=== PATIENT | female | born 1945 ===

== ENCOUNTER 2017-03-17 19:24 | Inpatient (IN) | payer MEDICAID, MEDICARE ==
[2017-03-17 19:24] VITALS: BMI 38.5
--- NOTE | 2017-03-17 20:10 | C.PDOC ---
History Of Present Illness A 72 y/o female presents to the ER c/o headache that began this morning that is still going throughout the day. Pt notes she surgery done on the right shoulder two weeks ago and is wearing a pain pad but does not relieve headache. Pt is unaware of fever and denies photophobia, vision changes, cough, vomiting, diarrhea, dizziness, or any other complaints. Time Seen by Provider: 03/17/17 19:56 Chief Complaint (Nursing): Headache History Per: Patient History/Exam Limitations: no limitations Onset/Duration Of Symptoms: Hrs Current Symptoms Are (Timing): Still Present Severity: Mild Associated Symptoms: denies: Photophobia, Nausea, Vomiting Recent travel outside of the [place]: No Additional History Per: Patient Past Medical History Reviewed: Historical Data, Nursing Documentation, Vital Signs Vital Signs: Last Vital Signs Temp 98.4 F 03/18/17 07:28 Pulse 84 03/18/17 07:28 Resp 20 03/18/17 07:28 BP 128/79 03/18/17 11:29 Pulse Ox 96 03/18/17 07:28 - Medical History PMH: Asthma, Bronchitis, COPD, Dementia, Diabetes, Gastritis, Gall Bladder Disease, HTN, Hypercholesterolemia, Hyperlipidemia, Hypothyroidism, Pneumonia, Seizures Denies: Depression, Chronic Kidney Disease Surgical History: Cholecystectomy - [facility] Procedures CENTRAL VENOUS CATHETER PLACEMENT WITH GUIDANCE (06/17/13) DECORTICATION OF LUNG (06/17/13) DX ULTRASOUND-HEART (06/17/13) DX ULTRASOUND-THORAX NEC (04/25/12) ENDOSCOPIC BRONCHIAL BX (06/17/13) INSERT INTERCOSTAL CATH (06/17/13) NON-INVASIVE MECHANICAL VENTILATION (06/17/13) OTHER PLEURAL INCISION (06/17/13) THORACENTESIS (04/25/12) Family History: States: Unknown Family Hx - Social History Hx Tobacco Use: No Hx Alcohol Use: No Hx Substance Use: No - Immunization History Hx Tetanus Toxoid Vaccination: Yes Hx Influenza Vaccination: Yes Hx Pneumococcal Vaccination: Yes Review Of Systems Except As Marked, All Systems Reviewed And Found Negative. Constitutional: Positive for: Fever. Negative for: Chills Eyes: Negative for: Vision Change Cardiovascular: Negative for: Chest Pain Respiratory: Negative for: Cough Gastrointestinal: Negative for: Vomiting, Diarrhea Musculoskeletal: Positive for: Neck Pain Neurological: Positive for: Headache. Negative for: Dizziness Physical Exam - Physical Exam Appears: Non-toxic, No Acute Distress Skin: Warm, Dry Head: Atraumatic, Normacephalic Eye(s): bilateral: Normal Inspection, PERRL, EOMI Oral Mucosa: Moist Throat: Exudate Neck: Supple, Other (Tenderness to the back of the neck and scalp. no meningismus) Cardiovascular: Rhythm Regular, No Murmur Respiratory: No Decreased Breath Sounds, No Accessory Muscle Use, No Rales, No Rhonchi, No Wheezing Gastrointestinal/Abdominal: Soft, No Tenderness Neurological/Psych: Oriented x3, Normal Cognition, Normal Cranial Nerves, No Cerebellar Signs, Normal Motor, Normal Sensation, Other (No focal deficit) ED Course And Treatment - Laboratory Results Result Diagrams: 03/17/17 20:18 03/17/17 20:18 O2 Sat by Pulse Oximetry: 94 (RA) Pulse Ox Interpretation: Normal Medical Decision Making Medical Decision Making: martha Salazar who will admit Disposition - Disposition Disposition: HOSPITALIZED Disposition Time: 21:34 Condition: STABLE - Clinical Impression Clinical Impression: Headache, Fever - Scribe Statement The provider has reviewed the documentation as recorded by the Scribe Fran marquez All medical record entries made by the Scribe were at my direction and personally dictated by me. I have reviewed the chart and agree that the record accurately reflects my personal performance of the history, physical exam, medical decision making, and the department course for this patient. I have also personally directed, reviewed, and agree with the discharge instructions and disposition.
[2017-03-17 20:22] LABS: BASO # 0.1 K/uL (0.0-0.2); BASO % 0.6 % (0.0-2.0); EOS # 0.4 K/uL (0.0-0.7); EOS % 3.4 % (0.0-4.0); HEMATOCRIT 37.9 % (34.0-47.0); LYMPH # 1.9 K/uL (1.0-4.3); LYMPH % 15.8 % (20.0-40.0); MEAN CELL VOLUME 94.3 fL (81.0-99.0); MEAN CORPUSCULAR HEMOGLOBIN 30.7 pg (27.0-31.0); MEAN CORPUSCULAR HGB CONC 32.6 g/dL (33.0-37.0); MEAN PLATELET VOLUME 9.1 fL (7.2-11.7); MONO # 0.9 K/uL (0.0-0.8); MONO % 7.7 % (0.0-10.0); NRBC % 0.1 % (0.0-2.0); RED CELL DISTRIBUTION WIDTH 13.9 % (11.5-14.5)
[2017-03-17 20:23] LABS: WHITE BLOOD COUNT 11.7 K/uL (4.8-10.8)
[2017-03-17 20:26] LABS: VENOUS BLOOD GAS PCO2 40 mmHg (40-60); VENOUS BLOOD PH 7.37 (7.32-7.43)
[2017-03-17 20:34] LABS: CHLORIDE 106 mmol/L (98-107); SODIUM 137 mmol/L (132-148)
[2017-03-17 20:35] LABS: POTASSIUM 3.9 mmol/L (3.6-5.2)
[2017-03-17 20:37] LABS: ALKALINE PHOSPHATASE 80 U/L (38-126); AST/SGOT 26 U/L (14-36); CARBON DIOXIDE 22 mmol/L (22-30); GFR AFRICAN-AMERICAN > 60; TOTAL PROTEIN 7.3 g/dL (6.3-8.3)
[2017-03-17 20:38] LABS: ALT/SGPT 20 U/L (9-52); BLOOD UREA NITROGEN 8 mg/dL (7-17); CALCIUM 8.7 mg/dl (8.6-10.4); GLUCOSE,RANDOM 132 mg/dL (65-105)
[2017-03-17] MEDS ORDERED: cefTRIAXone 2 GM in Sodium Chloride 0.9% 100 ML IVPB STA (21:27)
[2017-03-17] MEDS ORDERED: cefTRIAXone IV 1 gm in Dextros 0 ML IVPB ONE (21:43)
[2017-03-17 22:06] LABS: RBC URINE 2 /hpf (0-3); TRANSITIONAL EPITHIAL 1 /hpf (0-3); URINE BACTERIA RARE (<OCC); URINE BILIRUBIN NEGATIVE (NEGATIVE); URINE BLOOD NEGATIVE (NEGATIVE); URINE COLOR Yellow (YELLOW); URINE GLUCOSE (UA) NORMAL (Normal); URINE KETONE NEGATIVE (NEGATIVE); URINE PROTEIN NEGATIVE (NEGATIVE); URINE UROBILINOGEN NORMAL mg/dL (0.2-1.0); WBC URINE 7 /hpf (0-5)
[2017-03-17 22:07] LABS: URINE LEUKOCYTE ESTERASE 1+ Leu/uL (Negative)
--- NOTE | 2017-03-17 22:27 | CT ---
EXAM: CT Head Without Intravenous Contrast CLINICAL HISTORY: 72 years old, female; Condition or disease; Headache TECHNIQUE: Axial computed tomography images of the head/brain without intravenous contrast. This CT exam was performed using one or more of the following dose reduction techniques: automated exposure control, adjustment of the mA and/or kV according to patient size, and/or use of iterative reconstruction technique. EXAM DATE/TIME: 03/17/2017 8:10 PM COMPARISON: Prior images are not available for review. Correlation is made with report dated 08/07/11 FINDINGS: Brain: Overall ventricular size is normal. There is no midline shift. A ventricular catheter is in place entering from a right posterior parietal approach. Catheter extends inferiorly anteriorly and medially across the midline. Tip is in the frontal horn of the left lateral ventricle. There is left frontotemporoparietal encephalomalacia. There is encephalomalacia in the left basal ganglia. There is right frontal encephalomalacia. There are no intra-axial or extra-axial mass lesions or hemorrhage. There are basal ganglia calcifications. There are multiple surgical clips adjacent to the left cavernous sinus. There is a clip in the expected location of the left anterior communicating artery. Ventricles: See above Bones/joints: There are postsurgical changes of remote right frontotemporal craniotomy. Soft tissues: unremarkable Sinuses: There is sphenoid sinusitis. Ears and mastoids: Middle ears are unremarkable. Mastoids are sclerotic and poorly aerated. Orbits: Orbital contents are unremarkable. 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
[2017-03-18] MEDS: Albuterol-Ipratrop 3 mg / 0.5 (3 ml) UD INH SCH ×4 (08:10→19:22)
[2017-03-18] MEDS: Levothyroxine 100 MCG TAB PO SCH (08:23)
--- NOTE | 2017-03-18 08:32 | RAD ---
HISTORY: fever COMPARISON: 01/20/2017 FINDINGS: LUNGS: Looped catheter projecting over the right paola thorax. Moderate venous congestion. Small right pleural effusion. Bibasilar airspace opacities. PLEURA: As above. CARDIOVASCULAR: Cardiomegaly. Enlarged ectatic aorta. Calcification at the aortic knob. OSSEOUS STRUCTURES: Degenerative changes in the spine and shoulders. VISUALIZED UPPER ABDOMEN: Normal. OTHER FINDINGS: None. IMPRESSION: Looped catheter projecting over the right paola thorax. Moderate venous congestion. Small right pleural effusion. Bibasilar airspace opacities.
[2017-03-18] MEDS ORDERED: cefTRIAXone IV 1 gm in Dextros 50 ML IVPB SCH (10:00)
[2017-03-18] MEDS: Tiotropium 18 mcg Cap For Inhalation INH SCH (11:10)
[2017-03-18] MEDS: Enoxaparin 40 mg Syringe SC SCH (11:29)
[2017-03-18] MEDS: Omega-3-Acid Ethyl Esters 1 GM Cap PO SCH ×2 (11:29→17:44)
--- NOTE | 2017-03-18 11:55 | CP.PCM.HP ---
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 Patient presents to the Hospital complaining of headache and fever. Initial evaluation showed Leukocytosis. Patient denies nausea, vomiting, chest pain, cough, shortness of breath, abdominal pain or diarrhea. Present on Admission - Present on Admission Any Indicators Present on Admission: No Review of Systems - Constitutional Constitutional: Headache - EENT Eyes: As Per HPI Ears: As Per HPI Nose/Mouth/Throat: As Per HPI - Cardiovascular Cardiovascular: As Per HPI - Respiratory Respiratory: As Per HPI - Gastrointestinal Gastrointestinal: As Per HPI - Genitourinary Genitourinary: As Per HPI - Musculoskeletal Musculoskeletal: As Per HPI - Integumentary Integumentary: As Per HPI - Neurological Neurological: Headaches - Psychiatric Psychiatric: As Per HPI - Endocrine Endocrine: As Per HPI - Hematologic/Lymphatic Hematologic: As Per HPI Past Patient History - Infectious Disease Hx of Infectious Diseases: None - Past Medical History & Family History Past Medical History?: Yes - Past Social History Smoking Status: Former Smoker - CARDIAC Hx Cardiac Disorders: Yes Hx Hypercholesterolemia: Yes Hx Hypertension: Yes - PULMONARY Hx Respiratory Disorders: Yes Hx Asthma: Yes Hx Bronchitis: Yes Hx Chronic Obstructive Pulmonary Disease (COPD): Yes Hx Pneumonia: Yes - NEUROLOGICAL Hx Neurological Disorder: Yes Hx Dementia: Yes Hx Seizures: Yes - HEENT Hx HEENT Problems: Yes 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) - RENAL Hx Chronic Kidney Disease: No - ENDOCRINE/METABOLIC Hx Endocrine Disorders: Yes Hx Hypothyroidism: Yes - HEMATOLOGICAL/ONCOLOGICAL Hx Blood Disorders: No - INTEGUMENTARY Hx Dermatological Problems: No - MUSCULOSKELETAL/RHEUMATOLOGICAL Hx Musculoskeletal Disorders: No Hx Falls: No - GASTROINTESTINAL Hx Gastrointestinal Disorders: Yes Hx Gall Bladder Disease: Yes Hx Gastritis: Yes - GENITOURINARY/GYNECOLOGICAL Hx Genitourinary Disorders: No - PSYCHIATRIC Hx Psychophysiologic Disorder: No Hx Depression: No Hx Substance Use: No - SURGICAL HISTORY Hx Surgeries: Yes Hx Cholecystectomy: Yes - ANESTHESIA Hx Anesthesia: Yes Hx Anesthesia Reactions: No Hx Malignant Hyperthermia: No Meds Allergies/Adverse Reactions: Allergies Allergy/AdvReac Type Severity Reaction Status Date / Time moxifloxacin HCl Allergy RASH Verified 03/17/17 19:28 [From Avelox] Physical Exam - Constitutional Appears: Well - Head Exam Head Exam: ATRAUMATIC, NORMAL INSPECTION, NORMOCEPHALIC - Eye Exam Eye Exam: EOMI, Normal appearance, PERRL - ENT Exam ENT Exam: Mucous Membranes Moist, Normal Exam - Neck Exam Neck exam: Positive for: Full Rom, Normal Inspection - Respiratory Exam Respiratory Exam: Clear to Auscultation Bilateral, NORMAL BREATHING PATTERN - Cardiovascular Exam Cardiovascular Exam: REGULAR RHYTHM, +S1, +S2 - GI/Abdominal Exam GI & Abdominal Exam: Normal Bowel Sounds, Soft - Extremities Exam Extremities exam: Positive for: full ROM, normal inspection - Back Exam Back exam: FULL ROM, NORMAL INSPECTION - Neurological Exam Neurological exam: Alert, CN II-XII Intact, Normal Gait, Oriented x3, Reflexes Normal - Psychiatric Exam Psychiatric exam: Normal Affect, Normal Mood - Skin Skin Exam: Intact, Normal Color Results - Vital Signs Recent Vital Signs: Last Vital Signs Temp 98.4 F 03/18/17 07:28 Pulse 84 03/18/17 07:28 Resp 20 03/18/17 07:28 BP 128/79 03/18/17 11:29 Pulse Ox 96 03/18/17 07:28 - Labs Result Diagrams: 03/17/17 20:18 03/17/17 20:18 Labs: Laboratory Results - last 24 hr 03/17/17 03/18/17 03/18/17 21:51 07:05 11:37 POC Glucose (mg/dL) 167 H 159 H Urine Color Yellow Urine Clarity Hazy Urine pH 5.0 Ur Specific [place] 1.011 Urine Protein Negative Urine Glucose (UA) Normal Urine Ketones Negative Urine Blood Negative Urine Nitrate Negative Urine Bilirubin Negative Urine Urobilinogen Normal Ur Leukocyte Esterase 1+ H Urine WBC (Auto) 7 H Urine RBC (Auto) 2 Ur Squamous Epith Cells 2 Ur Transition Epith Cell 1 Urine Bacteria Rare Assessment & Plan (1) Fever Assessment and Plan: BC x 2. ID evaluation. Rocephin IV. Repeat CBC Diff. BMP. Status: Acute (2) Headache Status: Acute Priority: High (3) PROTEOMICS SCIENTIST (ventriculoperitoneal) shunt status Status: Acute (4) Diabetes Assessment and Plan: Accucheck with Insulin coverage ACHS Continue home medications. Status: Acute (5) Hypertension Assessment and Plan: Continue same treatment. Status: Acute
--- NOTE | 2017-03-18 17:34 | CP.PCM.CON ---
History of Present Illness - History of Present Illness History of Present Illness: 72 yo female with extensive PMH is admitted with severe headache neck pain and fever Has TARP REPAIRER shunt in situ - cultures of blood pending May need neuroconsult for culture of shunt await imaging studies had surgery right shoulder in january without incident or complications - Medical History PMH: Asthma, Bronchitis, COPD, Dementia, Diabetes, Gastritis, Gall Bladder Disease, HTN, Hypercholesterolemia, Hyperlipidemia, Hypothyroidism, Pneumonia, Seizures Denies: Depression, Chronic Kidney Disease Surgical History: Cholecystectomy - [facility] Procedures CENTRAL VENOUS CATHETER PLACEMENT WITH GUIDANCE (06/17/13) DECORTICATION OF LUNG (06/17/13) DX ULTRASOUND-HEART (06/17/13) DX ULTRASOUND-THORAX NEC (04/25/12) ENDOSCOPIC BRONCHIAL BX (06/17/13) INSERT INTERCOSTAL CATH (06/17/13) NON-INVASIVE MECHANICAL VENTILATION (06/17/13) OTHER PLEURAL INCISION (06/17/13) THORACENTESIS (04/25/12) Review of Systems - Constitutional Constitutional: As Per HPI, Chills, Fever, Lethargy - EENT Eyes: absent: As Per HPI, Blind Spots, Blurred Vision, Change in Vision, Decreased Night Vision, Diplopia, Discharge, Dry Eye, Exophthalmos, Floaters, Irritation, Itchy Eyes, Loss of Peripheral Vision, Pain, Photophobia, Requires Corrective Lenses, Sees Flashes, Spots in Vision, Tunnel Vision, Other Visual Disturbances, Loss of Vision, Other Ears: absent: As Per HPI, Decreased Hearing, Ear Discharge, Ear Pain, Tinnitus, Abnormal Hearing, Disequilibrium, Dizziness, Other Nose/Mouth/Throat: absent: As Per HPI, Epistaxis, Nasal Congestion, Nasal Discharge, Nasal Obstruction, Nasal Trauma, Nose Pain, Post Nasal Drip, Sinus Pain, Sinus Pressure, Bleeding Gums, Change in Voice, Dental Pain, Dry Mouth, Dysphagia, Halitosis, Hoarsness, Lip Swelling, Mouth Lesions, Mouth Pain, Odynophagia, Sore Throat, Throat Swelling, Tongue Swelling, Facial Pain, Neck Pain, Neck Mass, Other - Breasts Breasts: absent: As Per HPI, Change in Shape, Mass, Pain, Nipple Discharge, Nipple Inversion, Skin Changes, Swelling, Other - Cardiovascular Cardiovascular: absent: As Per HPI, Acrocyanosis, Chest Pain, Chest Pain at Rest , Chest Pain with Activity, Claudication, Diaphoresis, Dyspnea, Dyspnea on Exertion, Edema, Irregular Heart Rhythm, Pain Radiating to Arm/Neck/Jaw, Leg Edema, Leg Ulcers, Lightheadedness, Orthopnea, Palpitations, Paroxysmal Nocturnal Dyspnea, Pedal Edema, Radiating Pain, Rapid Heart Rate, Slow Heart Rate, Syncope, Other - Respiratory Respiratory: absent: As Per HPI, Cough, Dyspnea, Hemoptysis, Dyspnea on Exertion , Wheezing, Snoring, Stridor, Pain on Inspiration, Chest Congestion, Excessive Mucous Production, Change in Mucous Color, Pain with Coughing, Other - Gastrointestinal Gastrointestinal: absent: As Per HPI, Abdominal Pain, Belching, Bloating, Change in Bowel Habits, Change in Stool Character, Coffee Ground Emesis, Constipation, Cramping, Diarrhea, Dyspepsia, Dysphagia, Early Satiety, Excessive Flatus, Fecal Incontinence, Heartburn, Hematemesis, Hematochezia, Loose Stools, Melena, Nausea, Odynophagia, Temesmus, Vomiting, Other - Genitourinary Genitourinary: absent: As Per HPI, Change in Urinary Stream, Difficulty Urinating, Dysuria, Flank Pain, Hematuria, Pyuria, Nocturia, Urinary Incontinence, Urinary Frequency, Urinary Hesitance, Urinary Urgency, Voiding Freq/Small Amts, Freq UTI, Hx Renal/Bladder Calculi, Hx /Renal Surgery, Bladder Distension, Other - Reproductive: Female Reproductive:Female: absent: As Per HPI, Amenorrhea, Amenorrhea/ Control, Currently Menstual, Cycle <21 Days, Cycle >35 Days, Cycle Variable, Menses 1-7 Days, Menses >/= 8 Days, Menses Variable, Cycle > 4 Weeks Between, No Menses for 6 Months, Heavy Menses, Light Menses, Normal Menses, Spotting Between Cycles , S/P Hysterectomy, Menopausal, Post Menopausal, Premenarche, Abnormal Vaginal Bleeding, Dysmenorrhea, Dyspareunia, Genital Lesions, Genital Pruritis, Pelvic Pain, Prolapse Symptoms, Sexual Dysfunction, Vaginal Discharge, Vaginal Dryness , Vaginal Odor, Vaginal Pruritis, Other - Menstruation Menstruation: absent: As Per HPI, Amenorrhea, Amenorrhea/ Control, Currently Menstual, Cycle <21 Days, Cycle >35 Days, Cycle Variable, Menses 1-7 Days, Menses >/= 8 Days, Menses Variable, Cycle > 4 Weeks Between, No Menses for 6 Months, Heavy Menses, Light Menses, Normal Menses, Spotting Between Cycles , S/P Hysterectomy, Menopausal, Post Menopausal, Premenarche, Abnormal Vaginal Bleeding, Dysmenorrhea, Other - Musculoskeletal Musculoskeletal: absent: As Per HPI, Abnormal Gait, Arthralgias, Atrophy, Back Pain, Deformity, Joint Swelling, Limited Range of Motion, Loss of Height, Muscle Cramps, Muscle Weakness, Myalgias, Neck Pain, Numbness, Radiating Pain into Limb, Stiffness, Tingling, Other - Integumentary Integumentary: absent: As Per HPI, Acne, Alopecia, Bleeding Lesions, Change in Hair, Change in Nails, Change in Pigmentation, Changing Lesions, Dry Skin, Erythema, Furuncle, Hirsutism, Lesions, New Lesions, Non-Healing Lesions, Photosensitivity, Pruritus, Rash, Skin Pain, Skin Ulcer, Sores, Striae, Swelling , Unusual Bruising, Wounds, Jaundice, Other - Neurological Neurological: As Per HPI - Psychiatric Psychiatric: absent: As Per HPI, Abnormal Sleep Pattern, Anhedonia, Anxiety, Auditory Hallucinations, Behavioral Changes, Change in Appetite, Change in Libido, Confusion, Depression, Difficulty Concentrating, Hallucinations, Homicidal Ideation, Hopelessness, Irritability, Memory Loss, Mood Swings, Panic Attacks, Paranoia, Suicidal Ideation, Visual Hallucinations, Tactile Hallucinations, Other - Endocrine Endocrine: absent: As Per HPI, Change in Body Appearance, Change in Libido, Cold Intolorance, Deepening of Voice, Excessive Sweating, Fatigue, Flushing, Heat Intolorance, Increase in Ring/Shoe/Hat Size, Palpitations, Polydipsia, Polyphagia, Polyuria, Other - Hematologic/Lymphatic Hematologic: absent: As Per HPI, Easy Bleeding, Easy Bruising, Lymphadenopathy, Other Past Patient History - Infectious Disease Hx of Infectious Diseases: None - Past Medical History & Family History Past Medical History?: Yes - Past Social History Smoking Status: Former Smoker - CARDIAC Hx Hypercholesterolemia: Yes Hx Hypertension: Yes - PULMONARY Hx Asthma: Yes Hx Bronchitis: Yes Hx Chronic Obstructive Pulmonary Disease (COPD): Yes Hx Pneumonia: Yes - NEUROLOGICAL Hx Dementia: Yes Hx Seizures: Yes - HEENT Hx HEENT Problems: Yes 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) - RENAL Hx Chronic Kidney Disease: No - ENDOCRINE/METABOLIC Hx Hypothyroidism: Yes - HEMATOLOGICAL/ONCOLOGICAL Hx Blood Disorders: No - INTEGUMENTARY Hx Dermatological Problems: No - MUSCULOSKELETAL/RHEUMATOLOGICAL Hx Musculoskeletal Disorders: No Hx Falls: No - GASTROINTESTINAL Hx Gall Bladder Disease: Yes Hx Gastritis: Yes - GENITOURINARY/GYNECOLOGICAL Hx Genitourinary Disorders: No - PSYCHIATRIC Hx Depression: No Hx Substance Use: No - SURGICAL HISTORY Hx Cholecystectomy: Yes - ANESTHESIA Hx Anesthesia: Yes Hx Anesthesia Reactions: No Hx Malignant Hyperthermia: No Meds Allergies/Adverse Reactions: Allergies Allergy/AdvReac Type Severity Reaction Status Date / Time moxifloxacin HCl Allergy RASH Verified 03/17/17 19:28 [From Avelox] - Medications Medications: Current Medications Acetaminophen (Tylenol 325mg Tab) 650 mg PO Q6 PRN PRN Reason: Pain, severe (8-10) Last Admin: 03/18/17 11:26 Dose: 650 mg Albuterol/Ipratropium (Duoneb 3 Mg/0.5 Mg (3 Ml) Ud) 3 ml INH RQ4 [facility] Last Admin: 03/18/17 15:51 Dose: 3 ml Amlodipine Besylate (Norvasc) 2.5 mg PO DAILY [facility] Last Admin: 03/18/17 11:28 Dose: 2.5 mg Aspirin (Aspirin Chewable) 81 mg PO DAILY [facility] Last Admin: 03/18/17 11:30 Dose: 81 mg Carvedilol (Coreg) 3.125 mg PO DAILY [facility] Last Admin: 03/18/17 11:33 Dose: 3.125 mg Enoxaparin Sodium (Lovenox) 40 mg SC DAILY [facility] Last Admin: 03/18/17 11:29 Dose: 40 mg Furosemide (Lasix) 20 mg PO DAILY [facility] Last Admin: 03/18/17 11:29 Dose: 20 mg Glimepiride (Amaryl) 2 mg PO ACB [facility] Last Admin: 03/18/17 08:23 Dose: 2 mg Home Med (Rivastigmine [Exelon 13.3 Mg/24 Hr Patch]) 13.3 mg TD DAILY [facility] Ceftriaxone Sodium (Rocephin Iv 1 Gm Duplex) 50 mls @ 50 mls/30 min IVPB Q12H [facility] Last Admin: 03/18/17 10:30 Dose: 50 mls/30 min Insulin Human Regular (Novolin R) 0 unit SC ACHS [facility] PRN Reason: Protocol Levothyroxine Sodium (Synthroid) 100 mcg PO DAILY@0630 [facility] Last Admin: 03/18/17 08:23 Dose: 100 mcg Memantine (Namenda) 10 mg PO AMHS [facility] Metformin HCl (Glucophage) 500 mg PO BIDCC [facility] Last Admin: 03/18/17 08:23 Dose: 500 mg Montelukast Sodium (Singulair) 10 mg PO HS [facility] Xanea-4-Bfxe Ethyl Esters (Lovaza) 1 gm PO BID [facility] Last Admin: 03/18/17 11:29 Dose: 1 gm Pregabalin (Lyrica) 200 mg PO DAILY [facility] Rosuvastatin Calcium (Crestor) 2.5 mg PO HS [facility] Sitagliptin Phosphate (Januvia) 50 mg PO DAILY [facility] Last Admin: 03/18/17 11:31 Dose: 50 mg Tiotropium [place] (Spiriva) 18 mcg INH RQ24 [facility] Last Admin: 03/18/17 11:10 Dose: Not Given Physical Exam - Constitutional Appears: Non-toxic, Chronically Ill - Head Exam Head Exam: ATRAUMATIC, NORMOCEPHALIC - Eye Exam Eye Exam: EOMI, PERRL. absent: Scleral icterus - ENT Exam ENT Exam: Mucous Membranes Dry, Normal External Ear Exam, Normal Oropharynx - Neck Exam Neck exam: Positive for: Meningismus, Tenderness. Negative for: Full Rom, Lymphadenopathy, Thyromegaly Additional comments: decreased rom - Respiratory Exam Respiratory Exam: Decreased Breath Sounds, Clear to Auscultation Bilateral - Cardiovascular Exam Cardiovascular Exam: REGULAR RHYTHM, +S1, +S2 - GI/Abdominal Exam GI & Abdominal Exam: Diminished Bowel Sounds, Soft. absent: Guarding, Rebound, Tenderness - Rectal Exam Rectal Exam: Deferred - Exam Exam: NORMAL INSPECTION - Extremities Exam Extremities exam: Positive for: pedal pulses present. Negative for: calf tenderness, pedal edema, tenderness - Back Exam Back exam: absent: CVA tenderness (L), CVA tenderness (R), paraspinal tenderness - Neurological Exam Neurological exam: Alert, CN II-XII Intact, Oriented x3, Reflexes Normal - Psychiatric Exam Psychiatric exam: Anxious - Skin Skin Exam: Dry, Intact Results - Vital Signs Recent Vital Signs: Last Vital Signs Temp 98.4 F 03/18/17 07:28 Pulse 93 H 03/18/17 15:55 Resp 20 03/18/17 07:28 BP 128/79 03/18/17 11:29 Pulse Ox 94 L 03/18/17 12:31 - Labs Result Diagrams: 03/17/17 20:18 03/17/17 20:18 Labs: Laboratory Results - last 24 hr 03/17/17 03/18/17 03/18/17 21:51 07:05 11:37 POC Glucose (mg/dL) 167 H 159 H Urine Color Yellow Urine Clarity Hazy Urine pH 5.0 Ur Specific [place] 1.011 Urine Protein Negative Urine Glucose (UA) Normal Urine Ketones Negative Urine Blood Negative Urine Nitrate Negative Urine Bilirubin Negative Urine Urobilinogen Normal Ur Leukocyte Esterase 1+ H Urine WBC (Auto) 7 H Urine RBC (Auto) 2 Ur Squamous Epith Cells 2 Ur Transition Epith Cell 1 Urine Bacteria Rare 03/18/17 16:44 POC Glucose (mg/dL) 202 H Urine Color Urine Clarity Urine pH Ur Specific [place] Urine Protein Urine Glucose (UA) Urine Ketones Urine Blood Urine Nitrate Urine Bilirubin Urine Urobilinogen Ur Leukocyte Esterase Urine WBC (Auto) Urine RBC (Auto) Ur Squamous Epith Cells Ur Transition Epith Cell Urine Bacteria Assessment & Plan (1) Fever Status: Acute (2) Headache Status: Acute Priority: High (3) TARP REPAIRER (ventriculoperitoneal) shunt status Status: Acute (4) Dehydration Status: Acute (5) Diabetes Status: Acute - Assessment and Plan (Free Text) Assessment: CT noted- no obvious abscess, collection or hydrocephalus May need to have neurosurgery eval for possible shunt aspiration and cultures consider additional imaging of C spine await cultures cont IV antibiotics
[2017-03-18] MEDS: (Novolin R) Insulin Human Regular 100 units/ml vial SC SCH ×2 (17:44→21:16)
[2017-03-18] MEDS ORDERED: cefTRIAXone 2 GM IN NS 2 GM/100 ML BAG IVPB SCH ×2 (18:00→22:00)
[2017-03-18] MEDS: Rosuvastatin Calcium 2.5 mg Tab PO SCH (21:16)
[2017-03-18] MEDS ORDERED: cefTRIAXone 2 GM in Sodium Chloride 0.9% 100 ML IVPB SCH (22:00)
[2017-03-19] MEDS: Albuterol-Ipratrop 3 mg / 0.5 (3 ml) UD INH SCH ×5 (04:00→18:40)
[2017-03-19] MEDS: Tiotropium 18 mcg Cap For Inhalation INH SCH (07:08)
--- NOTE | 2017-03-19 15:06 | CT ---
PROCEDURE: CT scan of the neck dated 03/18/2017 COMPARISON: No prior study available comparison made with concurrent prior CT scan brain 03/18/2017 TECHNIQUE: CT scan of the neck without intravenous contrast. Coronal and sagittal reformats generated. Radiation dose: DLP 356.43 mGy-cm This CT exam was performed using one or more of the following dose reduction techniques: Automated exposure control, adjustment of the mA and/or kV according to patient size, and/or use of iterative reconstruction technique. . FINDINGS: Findings: Re- demonstrated is left pterional craniotomy defect with aneurysm clips misha in the region of the left anterior communicating artery at and adjacent to the left and supraclinoid carotid artery. Clinic correlation with surgical history is recommended. Is in situ PLASTER MAKER shunt tube seen extending inferiorly along the right posterior subcutaneous tissues of the calvarium and neck extending anteriorly in the right supraclavicular region of. The distal aspect of the PLASTER MAKER shunt tube is not visualized on this exam. There appears to be mild asymmetric enlargement left lobe thyroid gland. There is a small rounded calcification along the left the superolateral border of the thyroid gland. Thyroid ultrasound followup may be prudent. There is asymmetry of the submandibular glands right-side of which is somewhat fatty replaced compared the and slightly smaller (questionable mild atrophy) compared to the left side. There is also a small (approximately 2.5 mm) calcification in the right anterior submandibular/ sublingual region which could conceivably represent a small calcification within Magdiel's duct and could possibly account for what may represent fatty replacement and or atrophy. Parotid glands unremarkable. Evaluation of the cervical vasculature is limited due to the lack of circulating intravenous contrast material. Minor calcifications seen in the aortic arch and origins of the left subclavian and left common carotid artery. There also appears to be short retropharyngeal course of the left internal carotid artery. . Multiple small nonspecific bilateral cervical lymph nodes are seen within the jugulodigastric, posterior cervical spaces, submandibular and submental regions. . Note made of in situ mandibular dentures. Oral cavity appears otherwise unremarkable. Mildly prominent palatine tonsils left slightly larger than the right. There is asymmetry of the vallecula which could be due to some encroachment of lingual tonsils; residual and or retained secretion may contribute. Free margin of the epiglottis is unremarkable. There is asymmetry of the pyriform sinuses are felt to be secondary to short retropharyngeal course left internal carotid artery. Aryepiglottic folds appear relatively symmetric. The true vocal cords are so also symmetric. Biapical pleural thickening associated few tiny pleural-based calcifications in the right lung apex. In addition, there is minor adjacent parenchymal scarring. There appears to be a few tiny blebs in the right lung apex. Minor multilevel degenerative spondylosis of the cervical spine Impression: Status post left pterional craniotomy and aneurysm clipping as described. In situ PLASTER MAKER shunt tube. There is mild asymmetry of the submandibular glands right-sided which is slightly smaller and a fatty replaced in appearance compared to the left side. There is also small calcific density within the right anterior submandibular and sublingual region which could conceivably represent a calculus within the right submandibular - (Carrollton's duct). Mild asymmetry of the vallecula likely due to some encroachment of lingual tonsils and possibly some residual and or retained secretion.
[2017-03-19 20:30] VITALS: RESP 20
[2017-03-19] MEDS: Rosuvastatin Calcium 2.5 mg Tab PO SCH (21:11)
--- NOTE | 2017-03-19 21:47 | CP.PCM.PN ---
Subjective - Date & Time of Evaluation Date of Evaluation: 03/19/17 Time of Evaluation: 15:30 - Subjective Subjective: Afebrile, in no apparent distress. Objective - Vital Signs/Intake and Output Vital Signs (last 24 hours): Temp Pulse Resp BP Pulse Ox 98.5 F 78 20 125/85 96 03/19/17 15:10 03/19/17 15:10 03/19/17 15:10 03/19/17 15:10 03/19/17 15:10 - Medications Medications: Current Medications Acetaminophen (Tylenol 325mg Tab) 650 mg PO Q6 PRN PRN Reason: Pain, severe (8-10) Last Admin: 03/18/17 11:26 Dose: 650 mg Albuterol/Ipratropium (Duoneb 3 Mg/0.5 Mg (3 Ml) Ud) 3 ml INH RQ4 [facility] Last Admin: 03/19/17 18:40 Dose: 3 ml Amlodipine Besylate (Norvasc) 2.5 mg PO DAILY [facility] Last Admin: 03/18/17 11:28 Dose: 2.5 mg Aspirin (Aspirin Chewable) 81 mg PO DAILY [facility] Last Admin: 03/18/17 11:30 Dose: 81 mg Carvedilol (Coreg) 3.125 mg PO DAILY [facility] Last Admin: 03/18/17 11:33 Dose: 3.125 mg Enoxaparin Sodium (Lovenox) 40 mg SC DAILY [facility] Last Admin: 03/18/17 11:29 Dose: 40 mg Furosemide (Lasix) 20 mg PO DAILY [facility] Last Admin: 03/18/17 11:29 Dose: 20 mg Glimepiride (Amaryl) 2 mg PO ACB [facility] Last Admin: 03/18/17 08:23 Dose: 2 mg Home Med (Rivastigmine [Exelon 13.3 Mg/24 Hr Patch]) 13.3 mg TD DAILY [facility] Vancomycin HCl 1 gm/ Sodium (Chloride) 250 mls @ 166.6 mls/hr IVPB Q12H [facility] Last Admin: 03/18/17 18:46 Dose: 166.6 mls/hr Ceftriaxone Sodium (Rocephin 2 Gm Ivpb) 2 gm in 100 mls @ 100 mls/hr IVPB Q12 [facility] Last Admin: 03/19/17 21:21 Dose: 100 mls/hr Insulin Human Regular (Novolin R) 0 unit SC [facility] PRN Reason: Protocol Last Admin: 03/18/17 21:16 Dose: Not Given Levothyroxine Sodium (Synthroid) 100 mcg PO DAILY@0630 [facility] Last Admin: 03/18/17 08:23 Dose: 100 mcg Memantine (Namenda) 10 mg PO AMHS [facility] Last Admin: 03/19/17 21:11 Dose: 10 mg Metformin HCl (Glucophage) 500 mg PO BIDCC [facility] Last Admin: 03/18/17 17:44 Dose: 500 mg Montelukast Sodium (Singulair) 10 mg PO HS [facility] Last Admin: 03/19/17 21:11 Dose: 10 mg Ofqxe-7-Utnu Ethyl Esters (Lovaza) 1 gm PO BID [facility] Last Admin: 03/18/17 17:44 Dose: 1 gm Pregabalin (Lyrica) 200 mg PO DAILY [facility] Last Admin: 03/18/17 18:46 Dose: 200 mg Rosuvastatin Calcium (Crestor) 2.5 mg PO [facility] Last Admin: 03/19/17 21:11 Dose: 2.5 mg Sitagliptin Phosphate (Januvia) 50 mg PO DAILY [facility] Last Admin: 03/18/17 11:31 Dose: 50 mg Tiotropium [place] (Spiriva) 18 mcg INH RQ24 [facility] Last Admin: 03/18/17 11:10 Dose: Not Given - Constitutional Appears: Well, Non-toxic, No Acute Distress - Head Exam Head Exam: ATRAUMATIC, NORMAL INSPECTION, NORMOCEPHALIC - Eye Exam Eye Exam: EOMI, Normal appearance, PERRL - ENT Exam ENT Exam: Mucous Membranes Moist, Normal Exam - Neck Exam Neck Exam: Full ROM, Normal Inspection - Respiratory Exam Respiratory Exam: Clear to Ausculation Bilateral, NORMAL BREATHING PATTERN - Cardiovascular Exam Cardiovascular Exam: REGULAR RHYTHM, +S1, +S2 - GI/Abdominal Exam GI & Abdominal Exam: Soft, Normal Bowel Sounds - Extremities Exam Extremities Exam: Full ROM, Normal Capillary Refill, Normal Inspection - Back Exam Back Exam: Full ROM, NORMAL INSPECTION - Neurological Exam Neurological Exam: Alert, Awake, CN II-XII Intact, Normal Gait, Oriented x3 - Psychiatric Exam Psychiatric exam: Normal Affect, Normal Mood - Skin Skin Exam: Intact, Normal Color, Warm Assessment and Plan (1) Fever Status: Resolved (2) CEMENT BREAKER (ventriculoperitoneal) shunt status Assessment & Plan: Continue same treatment: Vanco + Rocephin. F/U Blood Cultures report. NeuroSurgical consult. Status: Acute (3) Headache Status: Acute (4) Diabetes Status: Acute (5) Hypertension Status: Acute
[2017-03-19] MEDS: (Novolin R) Insulin Human Regular 100 units/ml vial SC SCH (22:22)
[2017-03-20] MEDS: Albuterol-Ipratrop 3 mg / 0.5 (3 ml) UD INH SCH ×6 (00:42→19:25)
[2017-03-20] MEDS: Levothyroxine 100 MCG TAB PO SCH (06:14)
[2017-03-20] MEDS: Tiotropium 18 mcg Cap For Inhalation INH SCH (08:19)
[2017-03-20] MEDS: (Novolin R) Insulin Human Regular 100 units/ml vial SC SCH ×4 (08:30→22:34)
[2017-03-20] MEDS: cefTRIAXone 2 GM in Sodium Chloride 0.9% 100 ML IVPB SCH ×2 (10:00→21:32)
--- NOTE | 2017-03-20 10:20 | CP.PCM.PN ---
Subjective - Date & Time of Evaluation Date of Evaluation: 03/20/17 Time of Evaluation: 10:19 - Subjective Subjective: consult dictated doubt csf infected csf sent for c&s cell count and glucose Objective - Vital Signs/Intake and Output Vital Signs (last 24 hours): Temp Pulse Resp BP Pulse Ox 98.5 F 82 20 149/84 94 L 03/20/17 07:51 03/20/17 07:51 03/20/17 07:51 03/20/17 07:51 03/20/17 07:51 Intake and Output: 03/20/17 03/20/17 06:59 18:59 Intake Total 1050 Balance 1050 - Medications Medications: Current Medications Acetaminophen (Tylenol 325mg Tab) 650 mg PO Q6 PRN PRN Reason: Pain, severe (8-10) Last Admin: 03/20/17 01:33 Dose: 650 mg Albuterol/Ipratropium (Duoneb 3 Mg/0.5 Mg (3 Ml) Ud) 3 ml INH RQ4 [facility] Last Admin: 03/20/17 08:19 Dose: 3 ml Amlodipine Besylate (Norvasc) 2.5 mg PO DAILY [facility] Last Admin: 03/18/17 11:28 Dose: 2.5 mg Aspirin (Aspirin Chewable) 81 mg PO DAILY [facility] Last Admin: 03/18/17 11:30 Dose: 81 mg Carvedilol (Coreg) 3.125 mg PO DAILY [facility] Last Admin: 03/18/17 11:33 Dose: 3.125 mg Enoxaparin Sodium (Lovenox) 40 mg SC DAILY [facility] Last Admin: 03/18/17 11:29 Dose: 40 mg Furosemide (Lasix) 20 mg PO DAILY [facility] Last Admin: 03/18/17 11:29 Dose: 20 mg Glimepiride (Amaryl) 2 mg PO ACB [facility] Last Admin: 03/20/17 08:12 Dose: 2 mg Home Med (Rivastigmine [Exelon 13.3 Mg/24 Hr Patch]) 13.3 mg TD DAILY [facility] Vancomycin HCl 1 gm/ Sodium (Chloride) 250 mls @ 166.6 mls/hr IVPB Q12H [facility] Last Admin: 03/20/17 06:57 Dose: Not Given Ceftriaxone Sodium 2 gm/ (Sodium Chloride) 100 mls @ 200 mls/hr IVPB Q12 [facility] Insulin Human Regular (Novolin R) 0 unit SC ACHS [facility] PRN Reason: Protocol Last Admin: 03/20/17 08:30 Dose: Not Given Levothyroxine Sodium (Synthroid) 100 mcg PO DAILY@0630 [facility] Last Admin: 03/20/17 06:14 Dose: 100 mcg Memantine (Namenda) 10 mg PO AMHS [facility] Last Admin: 03/19/17 21:11 Dose: 10 mg Metformin HCl (Glucophage) 500 mg PO BIDCC [facility] Last Admin: 03/20/17 08:12 Dose: 500 mg Montelukast Sodium (Singulair) 10 mg PO HS [facility] Last Admin: 03/19/17 21:11 Dose: 10 mg Ooghr-2-Ajhi Ethyl Esters (Lovaza) 1 gm PO BID [facility] Last Admin: 03/18/17 17:44 Dose: 1 gm Pregabalin (Lyrica) 200 mg PO DAILY [facility] Last Admin: 03/18/17 18:46 Dose: 200 mg Rosuvastatin Calcium (Crestor) 2.5 mg PO [facility] Last Admin: 03/19/17 21:11 Dose: 2.5 mg Sitagliptin Phosphate (Januvia) 50 mg PO DAILY [facility] Last Admin: 03/18/17 11:31 Dose: 50 mg Tiotropium [place] (Spiriva) 18 mcg INH RQ24 [facility] Last Admin: 03/20/17 08:19 Dose: 18 mcg
[2017-03-20] MEDS: Omega-3-Acid Ethyl Esters 1 GM Cap PO SCH ×2 (10:28→17:41)
[2017-03-20] MEDS: Enoxaparin 40 mg Syringe SC SCH ×2 (10:30→11:41)
--- NOTE | 2017-03-20 10:46 | CON ---
DATE: 03/20/2017 A 72-year-old woman, presented with leukocytosis, fever, headache and neck pain. She is 15 years sta tus post clipping of aneurysm and GROUND SUPPORT EQUIPMENT FITTER shunt. She reports this headache and neck pain started recently . She denies any motor weakness that is new, any visual changes, any photophobia. She had a shoulde r surgery on the right done approximately a month ago. She was started on vancomycin, became afebril e and the white count dropped. There is concern of shunt infection, which I personally feel is very low. However, due to the raising of the question and the fact that her shoulder does not look infect ed, I proceeded to perform a shunt tap. The area was prepped in the usual manner. A 25-gauge needle was inserted into the reservoir and 3 mL of spinal fluid was removed for routine studies. She marlena ated it well. No change in her condition. If the CSF is consistent with infection, I will reevaluat e her. Otherwise, it can be assumed that the shunt is not the cause of her problem. Cb Chin MD cc: 130 TT: 03/20/2017 10:46:01 Confirmation # [id number] Dictation # [id number]
[2017-03-20 11:42] LABS: FLUID TYPE SPINAL FLUID
--- NOTE | 2017-03-20 12:03 | CP.PCM.PN ---
Subjective - Date & Time of Evaluation Date of Evaluation: 03/20/17 Time of Evaluation: 12:00 - Subjective Subjective: Patient complaining of dizziness. Objective - Vital Signs/Intake and Output Vital Signs (last 24 hours): Temp Pulse Resp BP Pulse Ox 98.5 F 82 20 149/84 94 L 03/20/17 07:51 03/20/17 07:51 03/20/17 07:51 03/20/17 10:29 03/20/17 07:51 Intake and Output: 03/20/17 03/20/17 06:59 18:59 Intake Total 1050 Balance 1050 - Medications Medications: Current Medications Acetaminophen (Tylenol 325mg Tab) 650 mg PO Q6 PRN PRN Reason: Pain, severe (8-10) Last Admin: 03/20/17 01:33 Dose: 650 mg Albuterol/Ipratropium (Duoneb 3 Mg/0.5 Mg (3 Ml) Ud) 3 ml INH RQ4 [facility] Last Admin: 03/20/17 11:16 Dose: 3 ml Amlodipine Besylate (Norvasc) 2.5 mg PO DAILY [facility] Last Admin: 03/20/17 10:30 Dose: 2.5 mg Aspirin (Aspirin Chewable) 81 mg PO DAILY [facility] Last Admin: 03/20/17 10:30 Dose: 81 mg Carvedilol (Coreg) 3.125 mg PO DAILY [facility] Last Admin: 03/20/17 10:28 Dose: 3.125 mg Enoxaparin Sodium (Lovenox) 40 mg SC DAILY [facility] Last Admin: 03/20/17 11:41 Dose: Not Given Furosemide (Lasix) 20 mg PO DAILY [facility] Last Admin: 03/20/17 10:29 Dose: 20 mg Glimepiride (Amaryl) 2 mg PO ACB [facility] Last Admin: 03/20/17 08:12 Dose: 2 mg Home Med (Rivastigmine [Exelon 13.3 Mg/24 Hr Patch]) 13.3 mg TD DAILY [facility] Vancomycin HCl 1 gm/ Sodium (Chloride) 250 mls @ 166.6 mls/hr IVPB Q12H [facility] Last Admin: 03/20/17 06:57 Dose: Not Given Ceftriaxone Sodium 2 gm/ (Sodium Chloride) 100 mls @ 200 mls/hr IVPB Q12 [facility] Last Admin: 03/20/17 10:00 Dose: 200 mls/hr Insulin Human Regular (Novolin R) 0 unit SC ACHS [facility] PRN Reason: Protocol Last Admin: 03/20/17 08:30 Dose: Not Given Levothyroxine Sodium (Synthroid) 100 mcg PO DAILY@0630 [facility] Last Admin: 03/20/17 06:14 Dose: 100 mcg Memantine (Namenda) 10 mg PO AMHS [facility] Last Admin: 03/20/17 10:55 Dose: 10 mg Metformin HCl (Glucophage) 500 mg PO BIDCC [facility] Last Admin: 03/20/17 08:12 Dose: 500 mg Montelukast Sodium (Singulair) 10 mg PO [facility] Last Admin: 03/19/17 21:11 Dose: 10 mg Wgokf-7-Qoee Ethyl Esters (Lovaza) 1 gm PO BID [facility] Last Admin: 03/20/17 10:28 Dose: 1 gm Pregabalin (Lyrica) 200 mg PO DAILY [facility] Last Admin: 03/20/17 10:55 Dose: 200 mg Rosuvastatin Calcium (Crestor) 2.5 mg PO [facility] Last Admin: 03/19/17 21:11 Dose: 2.5 mg Sitagliptin Phosphate (Januvia) 50 mg PO DAILY [facility] Last Admin: 03/20/17 10:30 Dose: 50 mg Tiotropium [place] (Spiriva) 18 mcg INH RQ24 [facility] Last Admin: 03/20/17 08:19 Dose: 18 mcg - Constitutional Appears: Well, Non-toxic, No Acute Distress - Head Exam Head Exam: ATRAUMATIC, NORMAL INSPECTION, NORMOCEPHALIC - Eye Exam Eye Exam: EOMI, Normal appearance, PERRL - ENT Exam ENT Exam: Mucous Membranes Moist, Normal Exam - Neck Exam Neck Exam: Full ROM, Normal Inspection - Respiratory Exam Respiratory Exam: Clear to Ausculation Bilateral, NORMAL BREATHING PATTERN - Cardiovascular Exam Cardiovascular Exam: REGULAR RHYTHM - GI/Abdominal Exam GI & Abdominal Exam: Soft, Normal Bowel Sounds - Extremities Exam Extremities Exam: Full ROM, Normal Capillary Refill, Normal Inspection - Back Exam Back Exam: Full ROM, NORMAL INSPECTION - Neurological Exam Neurological Exam: Alert, Awake, CN II-XII Intact, Normal Gait, Oriented x3 - Psychiatric Exam Psychiatric exam: Normal Affect, Normal Mood - Skin Skin Exam: Dry, Intact, Normal Color Assessment and Plan (1) TELEPHONE SOLICITOR (ventriculoperitoneal) shunt status Assessment & Plan: NeuroSurgical consult. Patient's case discussed with NeuroSurgeon. Continue same treatment. CBC Diff. BMP. Status: Acute (2) Headache Status: Acute (3) Diabetes Status: Acute (4) Hypertension Status: Acute (5) Fever Status: Resolved
[2017-03-20 12:25] LABS: BASO # 0.1 K/uL (0.0-0.2); BASO % 0.7 % (0.0-2.0); EOS # 0.3 K/uL (0.0-0.7); EOS % 3.7 % (0.0-4.0); HEMATOCRIT 38.9 % (34.0-47.0); LYMPH # 1.4 K/uL (1.0-4.3); LYMPH % 17.6 % (20.0-40.0); MEAN CORPUSCULAR HEMOGLOBIN 30.7 pg (27.0-31.0); MEAN PLATELET VOLUME 9.5 fL (7.2-11.7); MONO # 0.7 K/uL (0.0-0.8); MONO % 9.3 % (0.0-10.0); RED CELL DISTRIBUTION WIDTH 13.3 % (11.5-14.5); WHITE BLOOD COUNT 7.9 K/uL (4.8-10.8)
[2017-03-20 12:45] LABS: CHLORIDE 101 mmol/L (98-107); SODIUM 143 mmol/L (132-148)
[2017-03-20 12:48] LABS: CARBON DIOXIDE 26 mmol/L (22-30); GFR AFRICAN-AMERICAN > 60
[2017-03-20 12:49] LABS: BLOOD UREA NITROGEN 8 mg/dL (7-17); CALCIUM 9.5 mg/dl (8.6-10.4); GLUCOSE,RANDOM 175 mg/dL (65-105)
[2017-03-20] MEDS: RIVASTIGMINE 13.3 MG TOP SCH (14:19)
--- NOTE | 2017-03-20 14:32 | CP.PCM.PN ---
Subjective - Date & Time of Evaluation Date of Evaluation: 03/20/17 Time of Evaluation: 09:00 - Subjective Subjective: HEADACHE LESS ALERT NECK MOBILE NO NUCAL RIGIDITY AFEBRILE Objective - Vital Signs/Intake and Output Vital Signs (last 24 hours): Temp Pulse Resp BP Pulse Ox 98.5 F 82 20 149/84 94 L 03/20/17 07:51 03/20/17 07:51 03/20/17 07:51 03/20/17 10:29 03/20/17 07:51 Intake and Output: 03/20/17 03/20/17 06:59 18:59 Intake Total 1050 Balance 1050 - Medications Medications: Current Medications Acetaminophen (Tylenol 325mg Tab) 650 mg PO Q6 PRN PRN Reason: Pain, severe (8-10) Last Admin: 03/20/17 01:33 Dose: 650 mg Albuterol/Ipratropium (Duoneb 3 Mg/0.5 Mg (3 Ml) Ud) 3 ml INH RQ4 [facility] Last Admin: 03/20/17 11:16 Dose: 3 ml Amlodipine Besylate (Norvasc) 2.5 mg PO DAILY [facility] Last Admin: 03/20/17 10:30 Dose: 2.5 mg Aspirin (Aspirin Chewable) 81 mg PO DAILY [facility] Last Admin: 03/20/17 10:30 Dose: 81 mg Carvedilol (Coreg) 3.125 mg PO DAILY [facility] Last Admin: 03/20/17 10:28 Dose: 3.125 mg Enoxaparin Sodium (Lovenox) 40 mg SC DAILY [facility] Last Admin: 03/20/17 11:41 Dose: Not Given Furosemide (Lasix) 20 mg PO DAILY [facility] Last Admin: 03/20/17 10:29 Dose: 20 mg Glimepiride (Amaryl) 2 mg PO ACB [facility] Last Admin: 03/20/17 08:12 Dose: 2 mg Home Med (Patient's Own Topical) 0 gm TOP DAILY [facility] Last Admin: 03/20/17 14:19 Dose: 1 gm Vancomycin HCl 1 gm/ Sodium (Chloride) 250 mls @ 166.6 mls/hr IVPB Q12H [facility] Last Admin: 03/20/17 11:30 Dose: 166.6 mls/hr Ceftriaxone Sodium 2 gm/ (Sodium Chloride) 100 mls @ 200 mls/hr IVPB Q12 [facility] Last Admin: 03/20/17 10:00 Dose: 200 mls/hr Insulin Human Regular (Novolin R) 0 unit SC ACHS [facility] PRN Reason: Protocol Last Admin: 03/20/17 12:41 Dose: 2 unit Levothyroxine Sodium (Synthroid) 100 mcg PO DAILY@0630 [facility] Last Admin: 03/20/17 06:14 Dose: 100 mcg Memantine (Namenda) 10 mg PO AMHS [facility] Last Admin: 03/20/17 10:55 Dose: 10 mg Metformin HCl (Glucophage) 500 mg PO BIDCC [facility] Last Admin: 03/20/17 08:12 Dose: 500 mg Montelukast Sodium (Singulair) 10 mg PO [facility] Last Admin: 03/19/17 21:11 Dose: 10 mg Qrpxk-4-Ezti Ethyl Esters (Lovaza) 1 gm PO BID [facility] Last Admin: 03/20/17 10:28 Dose: 1 gm Pregabalin (Lyrica) 200 mg PO DAILY [facility] Last Admin: 03/20/17 10:55 Dose: 200 mg Rosuvastatin Calcium (Crestor) 2.5 mg PO [facility] Last Admin: 03/19/17 21:11 Dose: 2.5 mg Sitagliptin Phosphate (Januvia) 50 mg PO DAILY [facility] Last Admin: 03/20/17 10:30 Dose: 50 mg Tiotropium [place] (Spiriva) 18 mcg INH RQ24 [facility] Last Admin: 03/20/17 08:19 Dose: 18 mcg - Labs Labs: 03/20/17 12:08 03/20/17 12:08 - Constitutional Appears: Non-toxic, Chronically Ill - Head Exam Head Exam: NORMOCEPHALIC - Eye Exam Eye Exam: PERRL. absent: Scleral icterus - ENT Exam ENT Exam: Mucous Membranes Dry, Normal External Ear Exam - Neck Exam Neck Exam: absent: Lymphadenopathy - Respiratory Exam Respiratory Exam: Decreased Breath Sounds, Clear to Ausculation Bilateral - Cardiovascular Exam Cardiovascular Exam: REGULAR RHYTHM, +S1, +S2 - GI/Abdominal Exam GI & Abdominal Exam: Distended, Soft. absent: Tenderness - Rectal Exam Rectal Exam: Deferred - Exam Exam: NORMAL INSPECTION - Extremities Exam Extremities Exam: absent: Calf Tenderness, Pedal Edema - Back Exam Back Exam: absent: CVA tenderness (L), CVA tenderness (R) - Neurological Exam Neurological Exam: Alert, Awake, Oriented x3 - Psychiatric Exam Psychiatric exam: Normal Mood - Skin Skin Exam: Dry, Intact Assessment and Plan (1) Fever Status: Resolved (2) Headache Status: Acute (3) DIRECTOR MBA (ventriculoperitoneal) shunt status Status: Acute (4) Dehydration Status: Acute (5) Diabetes Status: Acute - Assessment and Plan (Free Text) Assessment: CSF LOOKS FINE CULTURES NEGATIVE PROCALCITONIN LEVEL OK WILL D/C NAMITA
--- NOTE | 2017-03-20 15:23 | CP.PCM.PN ---
Subjective - Date & Time of Evaluation Date of Evaluation: 03/20/17 Time of Evaluation: 15:22 - Subjective Subjective: follow up CSF one lymph no inidcation of infection Objective - Vital Signs/Intake and Output Vital Signs (last 24 hours): Temp Pulse Resp BP Pulse Ox 98.5 F 82 20 149/84 94 L 03/20/17 07:51 03/20/17 07:51 03/20/17 07:51 03/20/17 10:29 03/20/17 07:51 Intake and Output: 03/20/17 03/20/17 06:59 18:59 Intake Total 1050 Balance 1050 - Medications Medications: Current Medications Acetaminophen (Tylenol 325mg Tab) 650 mg PO Q6 PRN PRN Reason: Pain, severe (8-10) Last Admin: 03/20/17 01:33 Dose: 650 mg Albuterol/Ipratropium (Duoneb 3 Mg/0.5 Mg (3 Ml) Ud) 3 ml INH RQ4 [facility] Last Admin: 03/20/17 11:16 Dose: 3 ml Amlodipine Besylate (Norvasc) 2.5 mg PO DAILY [facility] Last Admin: 03/20/17 10:30 Dose: 2.5 mg Aspirin (Aspirin Chewable) 81 mg PO DAILY [facility] Last Admin: 03/20/17 10:30 Dose: 81 mg Carvedilol (Coreg) 3.125 mg PO DAILY [facility] Last Admin: 03/20/17 10:28 Dose: 3.125 mg Enoxaparin Sodium (Lovenox) 40 mg SC DAILY [facility] Last Admin: 03/20/17 11:41 Dose: Not Given Furosemide (Lasix) 20 mg PO DAILY [facility] Last Admin: 03/20/17 10:29 Dose: 20 mg Glimepiride (Amaryl) 2 mg PO ACB [facility] Last Admin: 03/20/17 08:12 Dose: 2 mg Home Med (Patient's Own Topical) 0 gm TOP DAILY [facility] Last Admin: 03/20/17 14:19 Dose: 1 gm Ceftriaxone Sodium 2 gm/ (Sodium Chloride) 100 mls @ 200 mls/hr IVPB Q12 [facility] Last Admin: 03/20/17 10:00 Dose: 200 mls/hr Insulin Human Regular (Novolin R) 0 unit SC ACHS [facility] PRN Reason: Protocol Last Admin: 03/20/17 12:41 Dose: 2 unit Levothyroxine Sodium (Synthroid) 100 mcg PO DAILY@0630 [facility] Last Admin: 03/20/17 06:14 Dose: 100 mcg Memantine (Namenda) 10 mg PO AMHS [facility] Last Admin: 03/20/17 10:55 Dose: 10 mg Metformin HCl (Glucophage) 500 mg PO BIDCC [facility] Last Admin: 03/20/17 08:12 Dose: 500 mg Montelukast Sodium (Singulair) 10 mg PO HS [facility] Last Admin: 03/19/17 21:11 Dose: 10 mg [place]-9-Uvuc Ethyl Esters (Lovaza) 1 gm PO BID [facility] Last Admin: 03/20/17 10:28 Dose: 1 gm Pregabalin (Lyrica) 200 mg PO DAILY [facility] Last Admin: 03/20/17 10:55 Dose: 200 mg Rosuvastatin Calcium (Crestor) 2.5 mg PO [facility] Last Admin: 03/19/17 21:11 Dose: 2.5 mg Sitagliptin Phosphate (Januvia) 50 mg PO DAILY [facility] Last Admin: 03/20/17 10:30 Dose: 50 mg Tiotropium [place] (Spiriva) 18 mcg INH RQ24 [facility] Last Admin: 03/20/17 08:19 Dose: 18 mcg - Labs Labs: 03/20/17 12:08 03/20/17 12:08
[2017-03-20] MEDS: Rosuvastatin Calcium 2.5 mg Tab PO SCH (21:35)
[2017-03-21] MEDS: Albuterol-Ipratrop 3 mg / 0.5 (3 ml) UD INH SCH ×6 (00:58→20:30)
[2017-03-21] MEDS: Levothyroxine 100 MCG TAB PO SCH (06:08)
[2017-03-21] MEDS: (Novolin R) Insulin Human Regular 100 units/ml vial SC SCH ×4 (07:37→21:48)
[2017-03-21] MEDS: Tiotropium 18 mcg Cap For Inhalation INH SCH (08:00)
[2017-03-21] MEDS: Omega-3-Acid Ethyl Esters 1 GM Cap PO SCH ×2 (09:38→17:07)
[2017-03-21] MEDS: Enoxaparin 40 mg Syringe SC SCH (10:09)
[2017-03-21] MEDS: cefTRIAXone 2 GM in Sodium Chloride 0.9% 100 ML IVPB SCH ×2 (10:41→21:58)
[2017-03-21] MEDS: RIVASTIGMINE 13.3 MG TOP SCH (10:54)
--- NOTE | 2017-03-21 15:08 | CP.PCM.PN ---
Subjective - Date & Time of Evaluation Date of Evaluation: 03/21/17 Time of Evaluation: 15:06 - Subjective Subjective: Afebrile, in no apparent distress. Patient denies headache. Objective - Vital Signs/Intake and Output Vital Signs (last 24 hours): Temp Pulse Resp BP Pulse Ox 98.3 F 91 H 20 128/89 95 03/21/17 07:53 03/21/17 07:53 03/21/17 07:53 03/21/17 09:38 03/21/17 07:53 Intake and Output: 03/21/17 03/21/17 06:59 18:59 Intake Total 840 780 Balance 840 780 - Medications Medications: Current Medications Acetaminophen (Tylenol 325mg Tab) 650 mg PO Q6 PRN PRN Reason: Pain, severe (8-10) Last Admin: 03/21/17 05:09 Dose: 650 mg Albuterol/Ipratropium (Duoneb 3 Mg/0.5 Mg (3 Ml) Ud) 3 ml INH RQ4 [facility] Last Admin: 03/21/17 11:30 Dose: 3 ml Amlodipine Besylate (Norvasc) 2.5 mg PO DAILY [facility] Last Admin: 03/21/17 09:39 Dose: 2.5 mg Aspirin (Aspirin Chewable) 81 mg PO DAILY [facility] Last Admin: 03/21/17 09:38 Dose: 81 mg Carvedilol (Coreg) 3.125 mg PO DAILY [facility] Last Admin: 03/21/17 09:39 Dose: 3.125 mg Enoxaparin Sodium (Lovenox) 40 mg SC DAILY [facility] Last Admin: 03/21/17 10:09 Dose: Not Given Glimepiride (Amaryl) 2 mg PO ACB [facility] Last Admin: 03/21/17 07:45 Dose: 2 mg Home Med (Patient's Own Topical) 0 gm TOP DAILY [facility] Last Admin: 03/21/17 10:54 Dose: 1 gm Ceftriaxone Sodium 2 gm/ (Sodium Chloride) 100 mls @ 200 mls/hr IVPB Q12 [facility] Last Admin: 03/21/17 10:41 Dose: 200 mls/hr Insulin Human Regular (Novolin R) 0 unit SC ACHS KYLE PRN Reason: Protocol Last Admin: 03/21/17 12:35 Dose: Not Given Levothyroxine Sodium (Synthroid) 100 mcg PO DAILY@0630 [facility] Last Admin: 03/21/17 06:08 Dose: 100 mcg Memantine (Namenda) 10 mg PO AMHS [facility] Last Admin: 03/21/17 09:38 Dose: 10 mg Metformin HCl (Glucophage) 500 mg PO BIDCC [facility] Last Admin: 03/21/17 07:44 Dose: 500 mg Montelukast Sodium (Singulair) 10 mg PO HS [facility] Last Admin: 03/20/17 21:35 Dose: 10 mg Mimto-1-Ozzb Ethyl Esters (Lovaza) 1 gm PO BID [facility] Last Admin: 03/21/17 09:38 Dose: 1 gm Potassium Chloride (K-Dur 20 Meq Er Tab) 20 meq PO DAILY [facility] Pregabalin (Lyrica) 200 mg PO DAILY [facility] Last Admin: 03/21/17 09:37 Dose: 200 mg Rosuvastatin Calcium (Crestor) 2.5 mg PO HS [facility] Last Admin: 03/20/17 21:35 Dose: 2.5 mg Sitagliptin Phosphate (Januvia) 50 mg PO DAILY [facility] Last Admin: 03/21/17 09:39 Dose: 50 mg Tiotropium [place] (Spiriva) 18 mcg INH RQ24 [facility] Last Admin: 03/21/17 08:00 Dose: 18 mcg - Labs Labs: 03/20/17 12:08 03/20/17 12:08 - Constitutional Appears: Well, Non-toxic, No Acute Distress - Head Exam Head Exam: ATRAUMATIC, NORMAL INSPECTION, NORMOCEPHALIC - Eye Exam Eye Exam: EOMI, Normal appearance - ENT Exam ENT Exam: Mucous Membranes Moist, Normal Exam - Neck Exam Neck Exam: Full ROM, Normal Inspection - Respiratory Exam Respiratory Exam: Clear to Ausculation Bilateral, NORMAL BREATHING PATTERN - Cardiovascular Exam Cardiovascular Exam: REGULAR RHYTHM, +S1, +S2 - GI/Abdominal Exam GI & Abdominal Exam: Soft, Normal Bowel Sounds - Extremities Exam Extremities Exam: Full ROM, Normal Capillary Refill, Normal Inspection - Back Exam Back Exam: Full ROM, NORMAL INSPECTION - Neurological Exam Neurological Exam: Alert, Awake, CN II-XII Intact, Normal Gait, Oriented x3 - Psychiatric Exam Psychiatric exam: Normal Affect, Normal Mood - Skin Skin Exam: Intact, Normal Color Assessment and Plan (1) Hypokalemia Assessment & Plan: Hold Furosemide. K-Dur 20 meq PO QD. Repeat BMP. Status: Acute (2) DO ALL OPERATOR (ventriculoperitoneal) shunt status Assessment & Plan: Continue same treatment. Status: Chronic (3) Diabetes Assessment & Plan: Continue same treatment. Status: Acute (4) Hypertension Assessment & Plan: Continue same treatment. Status: Acute (5) Headache Status: Resolved (6) Fever Status: Resolved
[2017-03-21 17:46] LABS: CHLORIDE 101 mmol/L (98-107); SODIUM 142 mmol/L (132-148)
[2017-03-21 17:47] LABS: POTASSIUM 3.3 mmol/L (3.6-5.2)
[2017-03-21 17:49] LABS: ALB/GLOB RATIO 1.1 (1.0-2.1); ALKALINE PHOSPHATASE 79 U/L (38-126); ALT/SGPT 18 U/L (9-52); AST/SGOT 24 U/L (14-36); BILIRUBIN,TOTAL 0.5 mg/dL (0.2-1.3); BLOOD UREA NITROGEN 9 mg/dL (7-17); CARBON DIOXIDE 28 mmol/L (22-30); GFR AFRICAN-AMERICAN > 60; GLUCOSE,RANDOM 119 mg/dL (65-105); TOTAL PROTEIN 7.6 g/dL (6.3-8.3)
[2017-03-21 17:50] LABS: CALCIUM 9.3 mg/dl (8.6-10.4)
[2017-03-21] MEDS: Rosuvastatin Calcium 2.5 mg Tab PO SCH (21:58)
[2017-03-22] MEDS: Albuterol-Ipratrop 3 mg / 0.5 (3 ml) UD INH SCH ×5 (00:22→20:19)
[2017-03-22] MEDS: Levothyroxine 100 MCG TAB PO SCH (06:30)
[2017-03-22] MEDS: Tiotropium 18 mcg Cap For Inhalation INH SCH (07:35)
[2017-03-22] MEDS: (Novolin R) Insulin Human Regular 100 units/ml vial SC SCH ×4 (08:04→22:19)
[2017-03-22] MEDS ORDERED: Potassium Chloride 20 mEq ER Tab PO SCH (10:00)
[2017-03-22] MEDS: Omega-3-Acid Ethyl Esters 1 GM Cap PO SCH ×2 (10:05→17:17)
[2017-03-22] MEDS: cefTRIAXone 2 GM in Sodium Chloride 0.9% 100 ML IVPB SCH ×2 (10:06→21:49)
[2017-03-22] MEDS: Enoxaparin 40 mg Syringe SC SCH (10:12)
[2017-03-22 12:09] LABS: CHLORIDE 100 mmol/L (98-107); POTASSIUM 3.2 mmol/L (3.6-5.2); SODIUM 142 mmol/L (132-148)
[2017-03-22] MEDS: RIVASTIGMINE 13.3 MG TOP SCH (12:11)
[2017-03-22 12:12] LABS: BLOOD UREA NITROGEN 7 mg/dL (7-17); CARBON DIOXIDE 29 mmol/L (22-30); GFR AFRICAN-AMERICAN > 60
[2017-03-22 12:13] LABS: CALCIUM 9.6 mg/dl (8.6-10.4); GLUCOSE,RANDOM 124 mg/dL (65-105)
--- NOTE | 2017-03-22 15:24 | CP.PCM.PN ---
Subjective - Date & Time of Evaluation Date of Evaluation: 03/22/17 Time of Evaluation: 08:00 - Subjective Subjective: FEELS WELL LESS HEADACHE NO FEVER Objective - Vital Signs/Intake and Output Vital Signs (last 24 hours): Temp Pulse Resp BP Pulse Ox 97.6 F 77 20 136/71 99 03/22/17 08:16 03/22/17 08:16 03/22/17 08:16 03/22/17 08:16 03/22/17 08:16 Intake and Output: 03/22/17 03/22/17 06:59 18:59 Intake Total 820 Balance 820 - Medications Medications: Current Medications Acetaminophen (Tylenol 325mg Tab) 650 mg PO Q6 PRN PRN Reason: Pain, severe (8-10) Last Admin: 03/21/17 23:06 Dose: 650 mg Albuterol/Ipratropium (Duoneb 3 Mg/0.5 Mg (3 Ml) Ud) 3 ml INH RQ4 [facility] Last Admin: 03/22/17 11:20 Dose: 3 ml Amlodipine Besylate (Norvasc) 2.5 mg PO DAILY [facility] Last Admin: 03/22/17 10:06 Dose: 2.5 mg Aspirin (Aspirin Chewable) 81 mg PO DAILY [facility] Last Admin: 03/22/17 10:05 Dose: 81 mg Carvedilol (Coreg) 3.125 mg PO DAILY [facility] Last Admin: 03/22/17 10:06 Dose: 3.125 mg Enoxaparin Sodium (Lovenox) 40 mg SC DAILY [facility] Last Admin: 03/22/17 10:12 Dose: Not Given Glimepiride (Amaryl) 2 mg PO ACB [facility] Last Admin: 03/22/17 08:25 Dose: 2 mg Home Med (Patient's Own Topical) 0 gm TOP DAILY [facility] Last Admin: 03/22/17 12:11 Dose: 1 gm Ceftriaxone Sodium 2 gm/ (Sodium Chloride) 100 mls @ 200 mls/hr IVPB Q12 [facility] Last Admin: 03/22/17 10:06 Dose: 200 mls/hr Insulin Human Regular (Novolin R) 0 unit SC ACHS KYLE PRN Reason: Protocol Last Admin: 03/22/17 12:43 Dose: Not Given Levothyroxine Sodium (Synthroid) 100 mcg PO DAILY@0630 [facility] Last Admin: 03/22/17 06:30 Dose: 100 mcg Memantine (Namenda) 10 mg PO AMHS [facility] Last Admin: 03/22/17 10:05 Dose: 10 mg Metformin HCl (Glucophage) 500 mg PO BIDCC [facility] Last Admin: 03/22/17 08:24 Dose: 500 mg Montelukast Sodium (Singulair) 10 mg PO HS [facility] Last Admin: 03/21/17 21:58 Dose: 10 mg Axuxj-3-Pqrn Ethyl Esters (Lovaza) 1 gm PO BID [facility] Last Admin: 03/22/17 10:05 Dose: 1 gm Potassium Chloride (K-Dur 20 Meq Er Tab) 20 meq PO DAILY [facility] Potassium Chloride (K-Dur 20 Meq Er Tab) 20 meq PO STAT ONE Stop: 03/22/17 16:31 Pregabalin (Lyrica) 200 mg PO DAILY [facility] Last Admin: 03/22/17 10:04 Dose: 200 mg Rosuvastatin Calcium (Crestor) 2.5 mg PO HS [facility] Last Admin: 03/21/17 21:58 Dose: 2.5 mg Sitagliptin Phosphate (Januvia) 50 mg PO DAILY [facility] Last Admin: 03/22/17 10:05 Dose: 50 mg Tiotropium [place] (Spiriva) 18 mcg INH RQ24 [facility] Last Admin: 03/22/17 07:35 Dose: 18 mcg - Labs Labs: 03/20/17 12:08 03/22/17 11:23 - Constitutional Appears: Non-toxic, Chronically Ill - Head Exam Head Exam: NORMOCEPHALIC - Eye Exam Eye Exam: PERRL. absent: Scleral icterus - ENT Exam ENT Exam: Mucous Membranes Dry, Normal External Ear Exam, Normal Oropharynx - Neck Exam Neck Exam: absent: Lymphadenopathy - Respiratory Exam Respiratory Exam: Decreased Breath Sounds, Rhonchi - Cardiovascular Exam Cardiovascular Exam: REGULAR RHYTHM, +S1, +S2 - GI/Abdominal Exam GI & Abdominal Exam: Distended, Soft. absent: Tenderness - Rectal Exam Rectal Exam: Deferred - Exam Exam: NORMAL INSPECTION - Extremities Exam Extremities Exam: absent: Calf Tenderness, Pedal Edema - Back Exam Back Exam: absent: CVA tenderness (L), CVA tenderness (R) - Neurological Exam Neurological Exam: Alert, Awake, Oriented x3 - Psychiatric Exam Psychiatric exam: Normal Mood - Skin Skin Exam: Dry, Intact Assessment and Plan (1) Fever Status: Resolved (2) Headache Status: Resolved (3) PROCESS CONTROL SPECIALIST (ventriculoperitoneal) shunt status Status: Chronic (4) Dehydration Status: Acute (5) Diabetes Status: Acute - Assessment and Plan (Free Text) Assessment: ALL CULTURES NEG THUS FAR WILL NEED OUT PT FOLLOW UP WITH PMD
[2017-03-22] MEDS ORDERED: Potassium Chloride 20 mEq ER Tab PO ONE (16:30)
[2017-03-22] MEDS: Rosuvastatin Calcium 2.5 mg Tab PO SCH (21:49)
[2017-03-23] MEDS: Albuterol-Ipratrop 3 mg / 0.5 (3 ml) UD INH SCH ×3 (00:40→07:27)
[2017-03-23] MEDS: Levothyroxine 100 MCG TAB PO SCH (06:15)
[2017-03-23 06:37] LABS: CHLORIDE 103 mmol/L (98-107); SODIUM 141 mmol/L (132-148)
[2017-03-23 06:40] LABS: BLOOD UREA NITROGEN 5 mg/dL (7-17); CALCIUM 9.3 mg/dl (8.6-10.4); CARBON DIOXIDE 28 mmol/L (22-30); GFR AFRICAN-AMERICAN > 60; GLUCOSE,RANDOM 115 mg/dL (65-105)
[2017-03-23] MEDS: Tiotropium 18 mcg Cap For Inhalation INH SCH (07:27)
[2017-03-23] MEDS: (Novolin R) Insulin Human Regular 100 units/ml vial SC SCH ×2 (08:19→11:17)
[2017-03-23] MEDS ORDERED: Potassium Chloride 20 mEq ER Tab PO SCH (10:00)
[2017-03-23] MEDS: Omega-3-Acid Ethyl Esters 1 GM Cap PO SCH ×2 (10:55→17:37)
[2017-03-23] MEDS: Enoxaparin 40 mg Syringe SC SCH (10:56)
[2017-03-23] MEDS: RIVASTIGMINE 13.3 MG TOP SCH (11:17)
[2017-03-23] MEDS: cefTRIAXone 2 GM in Sodium Chloride 0.9% 100 ML IVPB SCH (12:14)
--- NOTE | 2017-03-23 21:06 | CP.PCM.DIS ---
Provider - Provider Date of Admission: 03/17/17 21:34 Attending physician: Harshal Salazar MD Time Spent in preparation of Discharge (in minutes): 30 Diagnosis - Discharge Diagnosis (1) HUMAN SERVICE SPECIALIST (ventriculoperitoneal) shunt status Status: Chronic (2) Diabetes Status: Chronic (3) Hypertension Status: Chronic (4) Hypokalemia Status: Resolved (5) Headache Status: Resolved Priority: High (6) Fever Status: Resolved (7) Dehydration Status: Resolved Hospital Course - Lab Results Lab Results: Micro Results 03/20/17 11:30 Cerebral Spinal Fluid Gram Stain - Final 03/20/17 11:30 Cerebral Spinal Fluid CSF Culture - Preliminary NO GROWTH AFTER 3 DAYS Most Recent Lab Values WBC 7.9 K/uL (4.8-10.8) 03/20/17 12:08 RBC 4.18 Mil/uL (3.80-5.20) 03/20/17 12:08 Hgb 12.8 g/dL (11.0-16.0) 03/20/17 12:08 Hct 38.9 % (34.0-47.0) 03/20/17 12:08 MCV 93.0 fL (81.0-99.0) 03/20/17 12:08 MCH 30.7 pg (27.0-31.0) 03/20/17 12:08 MCHC 33.0 g/dL (33.0-37.0) 03/20/17 12:08 RDW 13.3 % (11.5-14.5) 03/20/17 12:08 Plt Count 307 K/uL (130-400) 03/20/17 12:08 MPV 9.5 fL (7.2-11.7) 03/20/17 12:08 Neut % (Auto) 68.7 % (50.0-75.0) 03/20/17 12:08 Lymph % (Auto) 17.6 % (20.0-40.0) L 03/20/17 12:08 [place] % (Auto) 9.3 % (0.0-10.0) 03/20/17 12:08 Eos % (Auto) 3.7 % (0.0-4.0) 03/20/17 12:08 Baso % (Auto) 0.7 % (0.0-2.0) 03/20/17 12:08 Neut # 5.5 K/uL (1.8-7.0) 03/20/17 12:08 Lymph # 1.4 K/uL (1.0-4.3) 03/20/17 12:08 [place] # 0.7 K/uL (0.0-0.8) 03/20/17 12:08 Eos # 0.3 K/uL (0.0-0.7) 03/20/17 12:08 Baso # 0.1 K/uL (0.0-0.2) 03/20/17 12:08 pO2 37 mm/Hg (30-55) 03/17/17 20:20 VBG pH 7.37 (7.32-7.43) 03/17/17 20:20 VBG pCO2 40 mmHg (40-60) 03/17/17 20:20 VBG HCO3 22.6 mmol/L 03/17/17 20:20 VBG Total CO2 24.3 mmol/L (22-28) 03/17/17 20:20 VBG O2 Sat (Calc) 74.4 % (40-65) H 03/17/17 20:20 VBG Base Excess -2.0 mmol/L (0.0-2.0) L 03/17/17 20:20 VBG Potassium 3.6 mmol/L (3.6-5.2) 03/17/17 20:20 Sodium 139.0 mmol/l (132-148) 03/17/17 20:20 Chloride 111.0 mmol/L (98-107) H 03/17/17 20:20 Glucose 127 mg/dl (65-105) H 03/17/17 20:20 Lactate 1.2 mmol/L (0.7-2.1) 03/17/17 20:20 FiO2 21.0 % 03/17/17 20:20 Sodium 141 mmol/L (132-148) 03/23/17 06:01 Potassium 4.0 mmol/L (3.6-5.2) 03/23/17 06:01 Chloride 103 mmol/L (98-107) 03/23/17 06:01 Carbon Dioxide 28 mmol/L (22-30) 03/23/17 06:01 Anion Gap 14 (10-20) 03/23/17 06:01 BUN 5 mg/dL (7-17) L 03/23/17 06:01 Creatinine 0.5 MG/DL (0.7-1.2) L 03/23/17 06:01 Est GFR ( Amer) > 60 03/23/17 06:01 Est GFR (Non-Af Amer) > 60 03/23/17 06:01 POC Glucose (mg/dL) 130 mg/dL (65-110) H 03/23/17 16:34 Random Glucose 115 mg/dL (65-105) H 03/23/17 06:01 Calcium 9.3 mg/dl (8.6-10.4) 03/23/17 06:01 Total Bilirubin 0.5 mg/dL (0.2-1.3) 03/21/17 17:16 AST 24 U/L (14-36) 03/21/17 17:16 ALT 18 U/L (9-52) 03/21/17 17:16 Alkaline Phosphatase 79 U/L (38-126) 03/21/17 17:16 Total Protein 7.6 g/dL (6.3-8.3) 03/21/17 17:16 Albumin 3.9 g/dL (3.5-5.0) 03/21/17 17:16 Globulin 3.7 gm/dL (2.2-3.9) 03/21/17 17:16 Albumin/Globulin Ratio 1.1 (1.0-2.1) 03/21/17 17:16 Procalcitonin 0.05 NG/ML (0.19-0.49) L 03/20/17 04:00 Venous Blood Potassium 3.6 mmol/L (3.6-5.2) 03/17/17 20:20 Urine Color Yellow (YELLOW) 03/17/17 21:51 Urine Clarity Hazy (Clear) 03/17/17 21:51 Urine pH 5.0 (5.0-8.0) 03/17/17 21:51 Ur Specific [place] 1.011 (1.003-1.030) 03/17/17 21:51 Urine Protein Negative mg/dL (NEGATIVE) 03/17/17 21:51 Urine Glucose (UA) Normal mg/dL (Normal) 03/17/17 21:51 Urine Ketones Negative mg/dL (NEGATIVE) 03/17/17 21:51 Urine Blood Negative (NEGATIVE) 03/17/17 21:51 Urine Nitrate Negative (NEGATIVE) 03/17/17 21:51 Urine Bilirubin Negative (NEGATIVE) 03/17/17 21:51 Urine Urobilinogen Normal mg/dL (0.2-1.0) 03/17/17 21:51 Ur Leukocyte Esterase 1+ [place]ira/uL (Negative) H 03/17/17 21:51 Urine WBC (Auto) 7 /hpf (0-5) H 03/17/17 21:51 Urine RBC (Auto) 2 /hpf (0-3) 03/17/17 21:51 Ur Squamous Epith Cells 2 /hpf (0-5) 03/17/17 21:51 Ur Transition Epith Cell 1 /hpf (0-3) 03/17/17 21:51 Urine Bacteria Rare (<OCC) 03/17/17 21:51 Fluid Type Spinal fluid 03/20/17 11:41 CSF Volume TEST NOT PERFORMED 03/20/17 11:41 CSF Appearance Clear/colorless (CLEAR) 03/20/17 11:41 CSF WBC 1.0 /mm3 (0.0-5.0) 03/20/17 11:41 CSF RBC 0.0 /mm3 (0.0-0.0) 03/20/17 11:41 CSF Total Cell Counted TEST NOT PERFORMED 03/20/17 11:41 CSF Monos/Macrophages TEST NOT PERFORMED 03/20/17 11:41 CSF Comment 03/20/17 11:41 CSF Glucose 89 mg/dL (40-70) H 03/20/17 11:41 Vancomycin Trough 11.5 ug/mL (5.0-10.0) H 03/20/17 07:09 Influenza Typ A,B (EIA) Negative for flu a/b (NEGATIVE) 03/18/17 21:33 - Hospital Course Hospital Course: 72 years old Female with PMHx significant for HTN, Type II DM, Hyperlipidemia, Asthma and HUMAN SERVICE SPECIALIST shunt status. Patient admitted for Headache, fever , neck pain and dizziness. Patient started on Rocephin IV. ID consult requested. Vancomycin IV added to antibiotic regimen. NeuroSurgery consult requested for HUMAN SERVICE SPECIALIST shunt evaluation. Blood Cultures: No growth. CSF fluid: No evidence of infection. Patient condition improved and she was discharge home. Discharge Exam - Head Exam Head Exam: NORMOCEPHALIC - Eye Exam Eye Exam: EOMI, Normal appearance, PERRL - Neck Exam Neck exam: Full Rom, Normal Inspection - Respiratory Exam Respiratory Exam: Clear to PA & Lateral, NORMAL BREATHING PATTERN, UNREMARKABLE - Cardiovascular Exam Cardiovascular Exam: REGULAR RHYTHM, RRR, +S1, +S2 - GI/Abdominal Exam GI & Abdominal Exam: Normal Bowel Sounds, Soft, Unremarkable - Extremities Exam Extremities exam: full ROM - Back Exam Back exam: FULL ROM, NORMAL INSPECTION - Neurological Exam Neurological exam: Alert, Altered, Normal Gait, Oriented x3, Reflexes Normal - Psychiatric Exam Psychiatric exam: Normal Affect, Normal Mood - Skin Skin Exam: Intact, Normal Color Discharge Plan - Follow Up Plan Condition: GOOD Disposition: HOME/ ROUTINE Patient education suggested?: No Instructions: Fever in Adults (GEN), Acute Headache (DC), Hypertension (DC) Referrals: Harshal Salazar MD [Staff Provider] -
[2017-03-23] MEDS: Rosuvastatin Calcium 2.5 mg Tab PO SCH (22:09)
[2017-03-24] MEDS: Levothyroxine 100 MCG TAB PO SCH (05:37)
[2017-03-24 07:21] VITALS: BP 116/75; PULSE 81; TEMP 97.8; O2SAT 96
[2017-03-24] MEDS ORDERED: Albuterol 0.042% Inhal Sol (1.25 mg/3 mL) UD IH SCH (08:00)
[2017-03-24] MEDS: Tiotropium 18 mcg Cap For Inhalation INH SCH (08:47)
== END 2017-03-24 09:30 | disposition home or self-care (01) | DRG 891 ==
LOC: SUPCPDRO 19:24 → C.ER 19:24 → C.9E 21:34 → C.3T 21:58
PROVIDERS: ADMIT Internal Medicine; ATTEND Internal Medicine
PROC: 009U3ZX Drainage of Spinal Canal, Percutaneous Approach, Diagnostic (ICD-10-PCS; principal; 2017-03-20)
DX: R51 Headache (principal); J44.9 Chronic obstructive pulmonary disease, unspecified; F03.90 Unspecified dementia, unspecified severity, without behavioral disturbance, psychotic disturbance, mood disturbance, and anxiety; E86.0 Dehydration; E87.6 Hypokalemia; R50.9 Fever, unspecified; J45.909 Unspecified asthma, uncomplicated; E11.9 Type 2 diabetes mellitus without complications; E78.00 Pure hypercholesterolemia, unspecified; E78.5 Hyperlipidemia, unspecified; E03.9 Hypothyroidism, unspecified; Z90.49 Acquired absence of other specified parts of digestive tract; Z98.2 Presence of cerebrospinal fluid drainage device; Z79.4 Long term (current) use of insulin

== ENCOUNTER 2017-03-27 12:31 | Inpatient (IN) | payer MEDICAID, MEDICARE ==
[2017-03-27 12:32] VITALS: BMI 38.5
--- NOTE | 2017-03-27 13:15 | C.PDOC ---
History Of Present Illness 72 y/o female sent to ED for (+) DVT study performed today. Pt reports developing left leg pain and swelling 3 days ago after being discharged from hospital, leading to US study. Pt denies chest pain, SOB or any other complaints. Time Seen by Provider: 03/27/17 13:11 Chief Complaint (Nursing): Lower Extremity Problem/Injury History Per: Patient History/Exam Limitations: no limitations Onset/Duration Of Symptoms: Days Current Symptoms Are (Timing): Still Present Severity: Moderate Recent travel outside of the [place]: No Past Medical History Reviewed: Historical Data, Nursing Documentation, Vital Signs Vital Signs: Last Vital Signs Temp 100.1 F H 03/27/17 15:13 Pulse 81 03/27/17 15:13 Resp 20 03/27/17 15:13 BP 107/70 03/27/17 15:13 Pulse Ox 95 03/27/17 15:13 - Medical History PMH: Asthma, Bronchitis, COPD, Dementia, Diabetes, Gastritis, Gall Bladder Disease, HTN, Hypercholesterolemia, Hyperlipidemia, Hypothyroidism, Pneumonia, Seizures Surgical History: Cholecystectomy - [facility] Procedures CENTRAL VENOUS CATHETER PLACEMENT WITH GUIDANCE (06/17/13) DECORTICATION OF LUNG (06/17/13) DRAINAGE OF SPINAL CANAL, PERCUTANEOUS APPROACH, DIAGNOSTIC (03/17/17) DX ULTRASOUND-HEART (06/17/13) DX ULTRASOUND-THORAX NEC (04/25/12) ENDOSCOPIC BRONCHIAL BX (06/17/13) INSERT INTERCOSTAL CATH (06/17/13) NON-INVASIVE MECHANICAL VENTILATION (06/17/13) OTHER PLEURAL INCISION (06/17/13) THORACENTESIS (04/25/12) Family History: States: Unknown Family Hx - Social History Hx Tobacco Use: No Hx Alcohol Use: No Hx Substance Use: No - Immunization History Hx Tetanus Toxoid Vaccination: Yes Hx Influenza Vaccination: Yes Hx Pneumococcal Vaccination: Yes Review Of Systems Except As Marked, All Systems Reviewed And Found Negative. Constitutional: Negative for: Fever Cardiovascular: Negative for: Chest Pain Respiratory: Negative for: Shortness of Breath Gastrointestinal: Negative for: Vomiting Musculoskeletal: Positive for: Other (left leg pain and swelling) Physical Exam - Physical Exam Appears: Non-toxic, No Acute Distress Skin: Warm, Dry, No Rash Head: Atraumatic, Normacephalic Neck: Normal, Normal ROM, Supple Chest: Symmetrical, No Tenderness Cardiovascular: Rhythm Regular, No Murmur Respiratory: Normal Breath Sounds, No Rales, No Rhonchi, No Wheezing Gastrointestinal/Abdominal: Normal Exam, Soft, No Tenderness Extremity: Normal ROM, Other (2+ pitting edema LLE) Pulses: Left Dorsalis Pedis: Normal Neurological/Psych: Oriented x3, Normal Speech, Normal Motor, Normal Sensation ED Course And Treatment - Laboratory Results Result Diagrams: 03/27/17 13:36 03/27/17 13:36 O2 Sat by Pulse Oximetry: 96 (room air) Pulse Ox Interpretation: Normal Progress Note: Plan: labs, lovenox, admit Medical Decision Making Medical Decision Making: unable to get ahold of pmd after 3 attempts. unable to reach medicine rn radiation oncology. pt admitted to [facility]. Disposition - Disposition Disposition: HOSPITALIZED Disposition Time: 13:18 Condition: STABLE - Clinical Impression Clinical Impression: Deep venous thrombosis of lower extremity - Scribe Statement The provider has reviewed the documentation as recorded by the Kd Mares Provider Attestation: All medical record entries made by the Kd were at my direction and personally dictated by me. I have reviewed the chart and agree that the record accurately reflects my personal performance of the history, physical exam, medical decision making, and the department course for this patient. I have also personally directed, reviewed, and agree with the discharge instructions and disposition.
[2017-03-27] MEDS ORDERED: Enoxaparin 60 mg Syringe SC STA (13:19)
[2017-03-27] MEDS ORDERED: Enoxaparin 80 mg Syringe ONE (13:31)
[2017-03-27 13:46] LABS: BASO % 0.5 % (0.0-2.0); EOS # 0.3 K/uL (0.0-0.7); EOS % 3.9 % (0.0-4.0); HEMATOCRIT 37.9 % (34.0-47.0); LYMPH # 1.2 K/uL (1.0-4.3); LYMPH % 19.3 % (20.0-40.0); MEAN CELL VOLUME 93.8 fL (81.0-99.0); MEAN CORPUSCULAR HGB CONC 33.1 g/dL (33.0-37.0); MEAN PLATELET VOLUME 9.2 fL (7.2-11.7); NRBC % 0.1 % (0.0-2.0); RED CELL DISTRIBUTION WIDTH 14.2 % (11.5-14.5); WHITE BLOOD COUNT 6.5 K/uL (4.8-10.8)
[2017-03-27 13:54] LABS: INR 1.1
[2017-03-27 14:00] LABS: CHLORIDE 99 mmol/L (98-107); POTASSIUM 4.6 mmol/L (3.6-5.2); SODIUM 139 mmol/L (132-148)
[2017-03-27 14:02] LABS: AST/SGOT 29 U/L (14-36); BILIRUBIN,TOTAL 0.9 mg/dL (0.2-1.3); CARBON DIOXIDE 30 mmol/L (22-30); GFR AFRICAN-AMERICAN > 60
[2017-03-27 14:03] LABS: ALB/GLOB RATIO 1.1 (1.0-2.1); ALKALINE PHOSPHATASE 82 U/L (38-126); ALT/SGPT 27 U/L (9-52); BLOOD UREA NITROGEN 12 mg/dL (7-17); CALCIUM 10.1 mg/dl (8.6-10.4); GLUCOSE,RANDOM 106 mg/dL (65-105); TOTAL PROTEIN 7.8 g/dL (6.3-8.3)
[2017-03-28] MEDS: Albuterol-Ipratrop 3 mg / 0.5 (3 ml) UD IH SCH ×6 (00:01→20:23)
[2017-03-28] MEDS: Levothyroxine 100 MCG TAB PO SCH (06:03)
[2017-03-28 07:31] LABS: BASO % 0.6 % (0.0-2.0); EOS # 0.3 K/uL (0.0-0.7); EOS % 4.3 % (0.0-4.0); HEMATOCRIT 35.6 % (34.0-47.0); LYMPH # 1.3 K/uL (1.0-4.3); LYMPH % 21.9 % (20.0-40.0); MEAN CELL VOLUME 93.7 fL (81.0-99.0); MEAN CORPUSCULAR HEMOGLOBIN 31.4 pg (27.0-31.0); MEAN CORPUSCULAR HGB CONC 33.5 g/dL (33.0-37.0); MEAN PLATELET VOLUME 9.6 fL (7.2-11.7); MONO # 1.1 K/uL (0.0-0.8); MONO % 17.9 % (0.0-10.0); NRBC % 0.1 % (0.0-2.0); RED CELL DISTRIBUTION WIDTH 14.1 % (11.5-14.5); WHITE BLOOD COUNT 6.1 K/uL (4.8-10.8)
[2017-03-28] MEDS: Omega-3-Acid Ethyl Esters 1 GM Cap PO SCH ×2 (09:49→17:24)
[2017-03-28] MEDS ORDERED: RIVASTIGMINE TD SCH (10:00)
[2017-03-28] MEDS: RIVASTIGMINE TD SCH (10:22)
--- NOTE | 2017-03-28 11:51 | CP.PCM.HP ---
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 A Venous Doppler US of the Lower Extremities showed Left Lower Extremity DVT. Patient started on Lovenox Subc. Present on Admission - Present on Admission Any Indicators Present on Admission: Yes History of DVT/PE: No History of Uncontrolled Diabetes: Yes Urinary Catheter: No Decubitus Ulcer Present: No Past Patient History - Infectious Disease Hx of Infectious Diseases: None - Past Medical History & Family History Past Medical History?: Yes - Past Social History Smoking Status: Light Smoker < 10 Cigarettes Daily - CARDIAC Hx Cardiac Disorders: Yes Hx Hypercholesterolemia: Yes Hx Hypertension: Yes - PULMONARY Hx Respiratory Disorders: Yes Hx Asthma: Yes Hx Bronchitis: Yes Hx Chronic Obstructive Pulmonary Disease (COPD): Yes Hx Pneumonia: Yes - NEUROLOGICAL Hx Neurological Disorder: Yes Hx Dementia: Yes Hx Seizures: Yes - HEENT Hx HEENT Problems: Yes 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 left ear - RENAL Hx Chronic Kidney Disease: No - ENDOCRINE/METABOLIC Hx Endocrine Disorders: Yes Hx Hypothyroidism: Yes - HEMATOLOGICAL/ONCOLOGICAL Hx Blood Disorders: No - INTEGUMENTARY Hx Dermatological Problems: No - MUSCULOSKELETAL/RHEUMATOLOGICAL Hx Musculoskeletal Disorders: No Hx Falls: Yes - GASTROINTESTINAL Hx Gastrointestinal Disorders: Yes Hx Gall Bladder Disease: Yes Hx Gastritis: Yes - GENITOURINARY/GYNECOLOGICAL Hx Genitourinary Disorders: No - PSYCHIATRIC Hx Psychophysiologic Disorder: No Hx Substance Use: No - SURGICAL HISTORY Hx Surgeries: Yes Hx Cholecystectomy: Yes Other/Comment: "aneurysm in head"- had surgery - ANESTHESIA Hx Anesthesia: Yes Hx Anesthesia Reactions: No Hx Malignant Hyperthermia: No Has any member of the family had a problem w/ anesthesia?: No Meds Allergies/Adverse Reactions: Allergies Allergy/AdvReac Type Severity Reaction Status Date / Time moxifloxacin HCl Allergy RASH Verified 03/27/17 12:41 [From Avelox] Physical Exam - Constitutional Appears: Well, Non-toxic, No Acute Distress - Head Exam Head Exam: ATRAUMATIC, NORMAL INSPECTION, NORMOCEPHALIC - Eye Exam Eye Exam: EOMI, Normal appearance, PERRL - ENT Exam ENT Exam: Mucous Membranes Moist, Normal Exam - Neck Exam Neck exam: Positive for: Full Rom, Normal Inspection - Respiratory Exam Respiratory Exam: Clear to Auscultation Bilateral, NORMAL BREATHING PATTERN - Cardiovascular Exam Cardiovascular Exam: REGULAR RHYTHM, +S1, +S2 - GI/Abdominal Exam GI & Abdominal Exam: Normal Bowel Sounds, Soft - Extremities Exam Extremities exam: Positive for: calf tenderness, pedal edema (Left lower extremity edema) - Back Exam Back exam: NORMAL INSPECTION - Neurological Exam Neurological exam: Alert, CN II-XII Intact, Normal Gait, Oriented x3 Results - Vital Signs Recent Vital Signs: Last Vital Signs Temp 98.4 F 03/28/17 07:35 Pulse 90 03/28/17 07:35 Resp 20 03/28/17 07:35 BP 118/76 03/28/17 07:35 Pulse Ox 93 L 03/28/17 07:35 - Labs Result Diagrams: 03/28/17 07:11 03/27/17 13:36 Labs: Laboratory Results - last 24 hr 03/27/17 03/27/17 03/27/17 13:36 13:36 13:36 WBC 6.5 RBC 4.04 Hgb 12.5 Hct 37.9 MCV 93.8 MCH 31.0 MCHC 33.1 RDW 14.2 Plt Count 213 MPV 9.2 Neut % (Auto) 60.3 Lymph % (Auto) 19.3 L [place] % (Auto) 16.0 H Eos % (Auto) 3.9 Baso % (Auto) 0.5 Neut # 3.9 Lymph # 1.2 [place] # 1.0 H Eos # 0.3 Baso # 0.0 PT 12.4 H INR 1.1 APTT 29 D-Dimer, Quantitative Sodium 139 Potassium 4.6 Chloride 99 Carbon Dioxide 30 Anion Gap 15 BUN 12 Creatinine 0.7 Est GFR ( Amer) > 60 Est GFR (Non-Af Amer) > 60 Random Glucose 106 H Calcium 10.1 Total Bilirubin 0.9 AST 29 ALT 27 Alkaline Phosphatase 82 Total Protein 7.8 Albumin 4.2 Globulin 3.6 Albumin/Globulin Ratio 1.1 03/27/17 03/28/17 22:50 07:11 WBC 6.1 RBC 3.80 Hgb 11.9 Hct 35.6 MCV 93.7 MCH 31.4 H MCHC 33.5 RDW 14.1 Plt Count 195 MPV 9.6 Neut % (Auto) 55.3 Lymph % (Auto) 21.9 [place] % (Auto) 17.9 H Eos % (Auto) 4.3 H Baso % (Auto) 0.6 Neut # 3.4 Lymph # 1.3 [place] # 1.1 H Eos # 0.3 Baso # 0.0 PT INR APTT D-Dimer, Quantitative 1984 H Sodium Potassium Chloride Carbon Dioxide Anion Gap BUN Creatinine Est GFR ( Amer) Est GFR (Non-Af Amer) Random Glucose Calcium Total Bilirubin AST ALT Alkaline Phosphatase Total Protein Albumin Globulin Albumin/Globulin Ratio Assessment & Plan (1) Deep venous thrombosis of lower extremity Assessment and Plan: D Dimer. Lovenox 1 mg Kg subc BID Hematology/Oncology evaluation R/O Occult Malignancy Status: Acute Priority: High
[2017-03-28] MEDS: Enoxaparin 80 mg Syringe SC SCH ×2 (12:38→20:15)
[2017-03-28] MEDS: (Novolog) Insulin Aspart, Recombinant 100 u/ml 10 ml vial SC SCH ×2 (17:03→21:42)
[2017-03-28] MEDS: Rosuvastatin Calcium 2.5 mg Tab PO SCH (21:44)
[2017-03-29] MEDS: Levothyroxine 100 MCG TAB PO SCH (05:59)
[2017-03-29] MEDS: Albuterol-Ipratrop 3 mg / 0.5 (3 ml) UD IH SCH ×6 (06:12→20:46)
[2017-03-29] MEDS: (Novolog) Insulin Aspart, Recombinant 100 u/ml 10 ml vial SC SCH ×4 (08:45→22:18)
[2017-03-29] MEDS: Enoxaparin 80 mg Syringe SC SCH ×2 (08:46→22:12)
[2017-03-29] MEDS: Omega-3-Acid Ethyl Esters 1 GM Cap PO SCH ×2 (09:33→18:41)
[2017-03-29] MEDS: RIVASTIGMINE TD SCH (09:34)
[2017-03-29] MEDS ORDERED: Iohexol 240 (50 ml) PO ONE (10:50)
--- NOTE | 2017-03-29 11:00 | CP.PCM.PN ---
Subjective - Date & Time of Evaluation Date of Evaluation: 03/29/17 Time of Evaluation: 10:58 - Subjective Subjective: Patient has no new complaints. Objective - Vital Signs/Intake and Output Vital Signs (last 24 hours): Temp Pulse Resp BP Pulse Ox 98.7 F 97 H 16 134/86 95 03/29/17 08:00 03/29/17 09:34 03/29/17 08:00 03/29/17 09:34 03/29/17 08:00 Intake and Output: 03/29/17 03/29/17 06:59 18:59 Intake Total 250 Balance 250 - Medications Medications: Current Medications Acetaminophen (Tylenol 325mg Tab) 650 mg PO Q6 PRN PRN Reason: pain Last Admin: 03/28/17 18:59 Dose: 650 mg Albuterol/Ipratropium (Duoneb 3 Mg/0.5 Mg (3 Ml) Ud) 3 ml IH RQ4 COUNT INCLUDES THE [facility] Last Admin: 03/29/17 08:53 Dose: 3 ml Amlodipine Besylate (Norvasc) 2.5 mg PO DAILY COUNT INCLUDES THE [facility] Last Admin: 03/29/17 09:33 Dose: 2.5 mg Carvedilol (Coreg) 3.125 mg PO DAILY COUNT INCLUDES THE [facility] Last Admin: 03/29/17 09:33 Dose: 3.125 mg Enoxaparin Sodium (Lovenox) 69 mg SC Q12H COUNT INCLUDES THE [facility] Last Admin: 03/29/17 08:46 Dose: 69 mg Glimepiride (Amaryl) 2 mg PO DAILY COUNT INCLUDES THE [facility] Last Admin: 03/29/17 09:33 Dose: 2 mg Home Med (Rivastigmine [Exelon 13.3 Mg/24 Hr Patch]) 13.3 mg TD DAILY COUNT INCLUDES THE [facility] Last Admin: 03/29/17 09:34 Dose: 13.3 mg Insulin Aspart (Novolog) 0 unit SC ACHS COUNT INCLUDES THE [facility] PRN Reason: Protocol Last Admin: 03/29/17 08:45 Dose: 1 unit Levothyroxine Sodium (Synthroid) 100 mcg PO 0630 COUNT INCLUDES THE [facility] Last Admin: 03/29/17 05:59 Dose: 100 mcg Lisinopril (Zestril) 40 mg PO DAILY COUNT INCLUDES THE [facility] Last Admin: 03/29/17 09:33 Dose: 40 mg Metformin HCl (Glucophage) 500 mg PO DAILY COUNT INCLUDES THE [facility] Last Admin: 03/29/17 09:33 Dose: 500 mg Montelukast Sodium (Singulair) 10 mg PO HS COUNT INCLUDES THE [facility] Last Admin: 03/28/17 21:44 Dose: 10 mg Sxiia-2-Eswi Ethyl Esters (Lovaza) 1 gm PO BID COUNT INCLUDES THE [facility] Last Admin: 03/29/17 09:33 Dose: 1 gm Pneumococcal Polyvalent Vaccine (Pneumovax 23 Vaccine) 0.5 ml IM .ONCE ONE Stop: 03/30/17 10:01 Rosuvastatin Calcium (Crestor) 2.5 mg PO [facility] Last Admin: 03/28/17 21:44 Dose: 2.5 mg Sitagliptin Phosphate (Januvia) 50 mg PO DAILY COUNT INCLUDES THE [facility] Last Admin: 03/29/17 09:33 Dose: 50 mg - Labs Labs: 03/28/17 07:11 03/27/17 13:36 PT 12.4 SECONDS (9.7-12.2) H 03/27/17 13:36 INR 1.1 03/27/17 13:36 APTT 29 SECONDS (21-34) 03/27/17 13:36 - Constitutional Appears: Well, Non-toxic, No Acute Distress - Head Exam Head Exam: ATRAUMATIC, NORMAL INSPECTION, NORMOCEPHALIC - Eye Exam Eye Exam: EOMI, Normal appearance, PERRL - Neck Exam Neck Exam: Full ROM, Normal Inspection - Respiratory Exam Respiratory Exam: Clear to Ausculation Bilateral, NORMAL BREATHING PATTERN - Cardiovascular Exam Cardiovascular Exam: REGULAR RHYTHM, +S1, +S2 - GI/Abdominal Exam GI & Abdominal Exam: Soft, Normal Bowel Sounds - Extremities Exam Extremities Exam: Full ROM, Normal Capillary Refill, Normal Inspection - Back Exam Back Exam: NORMAL INSPECTION - Neurological Exam Neurological Exam: Alert, Awake, CN II-XII Intact, Normal Gait, Oriented x3 - Psychiatric Exam Psychiatric exam: Normal Affect, Normal Mood - Skin Skin Exam: Intact, Normal Color Assessment and Plan (1) Deep venous thrombosis of lower extremity Assessment & Plan: CT scan of the Abdomen R/O Occult Malignancy. Continue same treatment. Patient's case discussed with Oncologist Dr Posadas. Status: Acute (2) Diabetes Assessment & Plan: Continue same treatment. Status: Chronic (3) Hypertension Assessment & Plan: Continue same treatment. Status: Chronic
[2017-03-29] MEDS ORDERED: Iodixanol 320 MG/ML 100 ML BOTTLE IV ONE (12:05)
--- NOTE | 2017-03-29 14:49 | CT ---
PROCEDURE: CT Chest, Abdomen and Pelvis with intravenous contrast HISTORY: r/o occult malignancy COMPARISON: 06/10/2013 CT thorax abdomen and pelvis. TECHNIQUE: IV dose administered: 100 cc Visipaque 320. Radiation dose: Total exam DLP = 706.80 mGy-cm. This CT exam was performed using one or more of the following dose reduction techniques: Automated exposure control, adjustment of the mA and/or kV according to patient size, and/or use of iterative reconstruction technique. FINDINGS: CT CHEST WITH CONTRAST: Pulmonary thromboembolism. Thrombus identified in the periphery of the right lower lobe bronchus. More distal thrombus identified in segmental branches of the right lower lobe. LUNGS: No suspicious pulmonary nodules, masses or infiltrates. Persistent volume loss right lung, this affects primarily the right middle lobe which is almost completely collapsed, progressive finding compared to the prior CT. MEDIASTINUM: Stable tortuous/ ectopic a mildly aneurysmal thoracic aorta without evidence of dissection. LYMPH NODES: Unremarkable. PLEURA: Unremarkable. No pneumothorax. No pleural fluid. BONES: Unremarkable. OTHER FINDINGS: Shunt catheter identified coursing through the neck into the thorax terminates in a pleural fluid collection with mean Hounsfield unit values 6.6. The well-circumscribed fluid collection measures 4.[address] ABDOMEN AND PELVIS: LIVER: Unremarkable. No gross lesion or ductal dilatation. GALLBLADDER AND BILE DUCTS: Status post cholecystectomy. No abnormality is seen in the gallbladder fossa. PANCREAS: Unremarkable. No gross lesion or ductal dilatation. SPLEEN: Unremarkable. ADRENALS: Unremarkable. No mass. KIDNEYS AND URETERS: Unremarkable. No hydronephrosis. No solid mass. Incidental finding(s): Lower pole simple cyst right kidney 2.3 cm. VASCULATURE: Enlarged, edematous distal common iliac and left iliac vein. This extends to the level of the femoral vein likely represents acute deep vein thrombosis. More proximally the right iliac artery is collapsed. There is no evidence of thrombus in the IVC. BOWEL: Postoperative findings likely subtotal colectomy. Expected postoperative findings identified. APPENDIX: Normal appendix. PERITONEUM: Unremarkable. No free fluid. No free air. LYMPH NODES: Unremarkable. No enlarged lymph nodes. BLADDER: Unremarkable. REPRODUCTIVE: Unremarkable. BONES: No acute fracture. OTHER FINDINGS: None. IMPRESSION: Acute and bilateral lower lobe pulmonary emboli. Secondary findings suggest acute thrombosis left femoral vein extending to the left common iliac vein. No evidence of malignancy either primary or secondary. Additional benign and/or incidental findings described above. Critical results conveyed to the nurse Shonna involved in the care and management of this individual.
[2017-03-29] MEDS: Rosuvastatin Calcium 2.5 mg Tab PO SCH (22:12)
[2017-03-30 00:04] VITALS: RESP 20
[2017-03-30] MEDS: Albuterol-Ipratrop 3 mg / 0.5 (3 ml) UD IH SCH ×4 (00:30→14:04)
[2017-03-30] MEDS: Levothyroxine 100 MCG TAB PO SCH (06:03)
[2017-03-30 06:26] LABS: CHLORIDE 102 mmol/L (98-107)
[2017-03-30 06:27] LABS: POTASSIUM 3.6 mmol/L (3.6-5.2); SODIUM 139 mmol/L (132-148)
[2017-03-30 06:29] LABS: BILIRUBIN,TOTAL 1.3 mg/dL (0.2-1.3); GFR AFRICAN-AMERICAN > 60
[2017-03-30 06:30] LABS: ALKALINE PHOSPHATASE 87 U/L (38-126); ALT/SGPT 18 U/L (9-52); AST/SGOT 22 U/L (14-36); BLOOD UREA NITROGEN 5 mg/dL (7-17); CALCIUM 9.2 mg/dl (8.6-10.4); CARBON DIOXIDE 26 mmol/L (22-30); GLUCOSE,RANDOM 145 mg/dL (65-105); TOTAL PROTEIN 7.5 g/dL (6.3-8.3)
[2017-03-30 06:37] LABS: HOMOCYSTEINE 8.4 umol/L (4.7-12.6)
[2017-03-30 07:00] LABS: BASO % 0.5 % (0.0-2.0); EOS # 0.3 K/uL (0.0-0.7); EOS % 5.7 % (0.0-4.0); HEMATOCRIT 36.4 % (34.0-47.0); LYMPH % 17.6 % (20.0-40.0); MEAN CELL VOLUME 91.5 fL (81.0-99.0); MEAN CORPUSCULAR HGB CONC 33.9 g/dL (33.0-37.0); MEAN PLATELET VOLUME 9.3 fL (7.2-11.7); MONO # 0.8 K/uL (0.0-0.8); MONO % 14.7 % (0.0-10.0); NRBC % 1.3 % (0.0-2.0); RED CELL DISTRIBUTION WIDTH 13.8 % (11.5-14.5); WHITE BLOOD COUNT 5.4 K/uL (4.8-10.8)
[2017-03-30] MEDS: (Novolog) Insulin Aspart, Recombinant 100 u/ml 10 ml vial SC SCH ×2 (07:29→12:34)
[2017-03-30 08:03] VITALS: TEMP 98.7; O2SAT 95
[2017-03-30] MEDS: Omega-3-Acid Ethyl Esters 1 GM Cap PO SCH (09:47)
[2017-03-30] MEDS: RIVASTIGMINE TD SCH ×2 (09:48→15:05)
[2017-03-30] MEDS: Enoxaparin 80 mg Syringe SC SCH (09:50)
[2017-03-30] MEDS ORDERED: Pneumococcal 23-Valent Vaccine IM ONE ×2 (10:00→15:00)
--- NOTE | 2017-03-30 11:41 | CON ---
DATE: 03/29/2017 REASON FOR CONSULTATION: Left lower extremity DVT. 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 Venous Doppler showed a lower extremity deep venous thrombosis. The patient has been started on Lovenox and hematology consult to rule out the cause of her DVT as we ll as occult malignancy. The patient complains of some weight loss and poor appetite over the past f ew months. PAST MEDICAL HISTORY: Significant for hypertension, type 2 diabetes, hyperlipidemia, asthma, COPD, V P shunt. FAMILY HISTORY: Unknown. SOCIAL HISTORY: Smoker, 10 cigarettes daily. REVIEW OF SYSTEMS: As per HPI, otherwise negative. ALLERGIES: AMOXICILLIN. MEDICATIONS: At the current time, the patient is on Amaryl, Coreg, albuterol, Glucophage, Januvia, N orvasc, and . PHYSICAL EXAMINATION: VITAL SIGNS: Temperature is 98.2, blood pressure is 130/74, pulse is 76. HEENT: Pale. No scleral icterus was seen. NECK: Supple. CHEST: Bilateral air entry CARDIOVASCULAR: S1, S2, regular rate and rhythm. ABDOMEN: Soft, obese. EXTREMITIES: Show some pain and swelling in the left lower extremity. LABORATORY DATA: Show white count of 6.1, hemoglobin of 12, platelets of 195, BUN of 20, creatinine of 0.7. ASSESSMENT AND PLAN: A 72-year-old female with multiple medical problems, now with left lower extrem ity deep venous thrombosis, which is a new finding in this patient. Will obtain CAT scan of the ches t, abdomen and pelvis to rule out occult malignancy and patient without any obvious reason for DVT. Also, will obtain a hypercoagulable workup in the form of protein MOTOR SETTER, antithrombin III, factor V Leiden, prothrombin gene mutation, lupus anticoagulant, antiphospholipid antibody as well as homoc ysteine levels, rheumatoid DONI, to determine any other causes for her hypercoagulable state. Will sw itch the patient form of Lovenox 1 mg per kg to Xarelto 15 mg p.o. b.i.d. for 3 weeks, followed by 20 mg p.o. daily. The case was discussed with Dr. Salazar. The patient can be discharged to follow up as an outpatient u nless there are abnormal findings on a CAT scan. Thank you and will follow the patient with you. Hannah Posadas MD cc: [phone] TT: 03/29/2017 18:18:34 Confirmation # [id number] Dictation # [id number] mn
[2017-03-30 14:21] VITALS: BP 132/75; PULSE 94
--- NOTE | 2017-03-30 14:27 | CP.PCM.DIS ---
Provider - Provider Date of Admission: 03/29/17 22:24 Attending physician: Harshal Salazar MD Time Spent in preparation of Discharge (in minutes): 30 Diagnosis - Discharge Diagnosis (1) Pulmonary embolism Status: Acute Priority: High Onset Date: ~03/30/17 (2) Deep venous thrombosis of lower extremity Status: Acute Priority: High (3) Diabetes Status: Chronic (4) Hypertension Status: Chronic Hospital Course - Lab Results Lab Results: Most Recent Lab Values WBC 5.4 K/uL (4.8-10.8) 03/30/17 06:11 RBC 3.97 Mil/uL (3.80-5.20) 03/30/17 06:11 Hgb 12.3 g/dL (11.0-16.0) 03/30/17 06:11 Hct 36.4 % (34.0-47.0) 03/30/17 06:11 MCV 91.5 fL (81.0-99.0) D 03/30/17 06:11 MCH 31.0 pg (27.0-31.0) 03/30/17 06:11 MCHC 33.9 g/dL (33.0-37.0) 03/30/17 06:11 RDW 13.8 % (11.5-14.5) 03/30/17 06:11 Plt Count 212 K/uL (130-400) 03/30/17 06:11 MPV 9.3 fL (7.2-11.7) 03/30/17 06:11 Neut % (Auto) 61.5 % (50.0-75.0) 03/30/17 06:11 Lymph % (Auto) 17.6 % (20.0-40.0) L 03/30/17 06:11 [place] % (Auto) 14.7 % (0.0-10.0) H 03/30/17 06:11 Eos % (Auto) 5.7 % (0.0-4.0) H 03/30/17 06:11 Baso % (Auto) 0.5 % (0.0-2.0) 03/30/17 06:11 Neut # 3.3 K/uL (1.8-7.0) 03/30/17 06:11 Lymph # 1.0 K/uL (1.0-4.3) 03/30/17 06:11 [place] # 0.8 K/uL (0.0-0.8) 03/30/17 06:11 Eos # 0.3 K/uL (0.0-0.7) 03/30/17 06:11 Baso # 0.0 K/uL (0.0-0.2) 03/30/17 06:11 PT 12.4 SECONDS (9.7-12.2) H 03/27/17 13:36 INR 1.1 03/27/17 13:36 APTT 29 SECONDS (21-34) 03/27/17 13:36 D-Dimer, Quantitative 1984 ng/mlDDU (0-243) H 03/27/17 22:50 Sodium 139 mmol/L (132-148) 03/30/17 06:11 Potassium 3.6 mmol/L (3.6-5.2) 03/30/17 06:11 Chloride 102 mmol/L (98-107) 03/30/17 06:11 Carbon Dioxide 26 mmol/L (22-30) 03/30/17 06:11 Anion Gap 14 (10-20) 03/30/17 06:11 BUN 5 mg/dL (7-17) L 03/30/17 06:11 Creatinine 0.6 MG/DL (0.7-1.2) L 03/30/17 06:11 Est GFR ( Amer) > 60 03/30/17 06:11 Est GFR (Non-Af Amer) > 60 03/30/17 06:11 POC Glucose (mg/dL) 159 mg/dL (65-110) H 03/30/17 10:59 Random Glucose 145 mg/dL (65-105) H 03/30/17 06:11 Calcium 9.2 mg/dl (8.6-10.4) 03/30/17 06:11 Total Bilirubin 1.3 mg/dL (0.2-1.3) 03/30/17 06:11 AST 22 U/L (14-36) 03/30/17 06:11 ALT 18 U/L (9-52) 03/30/17 06:11 Alkaline Phosphatase 87 U/L (38-126) 03/30/17 06:11 Total Protein 7.5 g/dL (6.3-8.3) 03/30/17 06:11 Albumin 3.8 g/dL (3.5-5.0) 03/30/17 06:11 Globulin 3.7 gm/dL (2.2-3.9) 03/30/17 06:11 Albumin/Globulin Ratio 1.0 (1.0-2.1) 03/30/17 06:11 Homocysteine 8.4 umol/L (4.7-12.6) 03/30/17 06:11 - Hospital Course Hospital Course: 72 years old female with PMHx significant for HTN, Type II DM, 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 Patient admitted for Left Leg DVT. Patient started on Lovenox Subc. CT scan of the Chest showed Pulmonary Embolism. Patient is clinically stable and she will be switch to Xarelto PO and discharge home. Patient's case discussed with Clay Puddler Dr Posadas. Discharge Exam - Head Exam Head Exam: ATRAUMATIC, NORMAL INSPECTION, NORMOCEPHALIC - Eye Exam Eye Exam: EOMI, Normal appearance, PERRL - Neck Exam Neck exam: Full Rom, Normal Inspection - Respiratory Exam Respiratory Exam: Clear to PA & Lateral, Rales, NORMAL BREATHING PATTERN, UNREMARKABLE - Cardiovascular Exam Cardiovascular Exam: REGULAR RHYTHM, RRR, +S1, +S2 - GI/Abdominal Exam GI & Abdominal Exam: Normal Bowel Sounds, Soft, Unremarkable - Extremities Exam Extremities exam: full ROM - Back Exam Back exam: FULL ROM, NORMAL INSPECTION - Neurological Exam Neurological exam: Alert, CN II-XII Intact, Normal Gait, Oriented x3, Reflexes Normal - Psychiatric Exam Psychiatric exam: Normal Affect, Normal Mood - Skin Skin Exam: Dry, Intact, Normal Color Discharge Plan - Follow Up Plan Condition: STABLE Disposition: HOME/ ROUTINE Patient education suggested?: No
== END 2017-03-30 15:30 | disposition home or self-care (01) | DRG 543 ==
LOC: C.ER 12:31 → INTOOBSV 13:18 → UNDOADMIN 13:18 → C.9E 13:18 → C.3T 14:59 → C.9E 15:47 → C.3T 15:47 → C.5T 17:32 → OBSVTOIN 03-29 22:24
PROVIDERS: ADMIT Internal Medicine; ATTEND Internal Medicine
DX: I82.412 Acute embolism and thrombosis of left femoral vein (principal); I26.99 Other pulmonary embolism without acute cor pulmonale; E11.9 Type 2 diabetes mellitus without complications; I10 Essential (primary) hypertension; Z23 Encounter for immunization

== ENCOUNTER 2017-08-07 13:07 | Observation (INO) | payer MEDICARE, MEDICAID ==
[2017-08-07 13:07] VITALS: BMI 38.5
--- NOTE | 2017-08-07 14:18 | C.PDOC ---
History Of Present Illness 72 y/o female, with PMHx of brain aneurysm, with ENGRAVER shunt, presents to ED for evaluation of dizziness that started this morning. Notes taking Meclizine without relief. Otherwise, denies chest pain, shortness of breath, palpitations , n/v, or visual changes. Time Seen by Provider: 08/07/17 13:45 Chief Complaint (Nursing): Dizziness/Lightheaded History Per: Patient History/Exam Limitations: no limitations Onset/Duration Of Symptoms: Hrs Current Symptoms Are (Timing): Still Present Recent travel outside of the [place]: No Additional History Per: Patient Past Medical History Reviewed: Historical Data, Nursing Documentation, Vital Signs Vital Signs: Last Vital Signs Temp 98.2 F 08/07/17 15:23 Pulse 74 08/07/17 18:11 Resp 20 08/07/17 18:11 BP 126/60 08/07/17 18:11 Pulse Ox 94 L 08/07/17 18:27 - Medical History PMH: Asthma, Bronchitis, COPD, Dementia, Diabetes, Gastritis, Gall Bladder Disease, HTN, Hypercholesterolemia, Hyperlipidemia, Hypothyroidism, Pneumonia, Seizures Denies: Chronic Kidney Disease Surgical History: Cholecystectomy - [facility] Procedures CENTRAL VENOUS CATHETER PLACEMENT WITH GUIDANCE (06/17/13) DECORTICATION OF LUNG (06/17/13) DRAINAGE OF SPINAL CANAL, PERCUTANEOUS APPROACH, DIAGNOSTIC (03/17/17) DX ULTRASOUND-HEART (06/17/13) DX ULTRASOUND-THORAX NEC (04/25/12) ENDOSCOPIC BRONCHIAL BX (06/17/13) INSERT INTERCOSTAL CATH (06/17/13) NON-INVASIVE MECHANICAL VENTILATION (06/17/13) OTHER PLEURAL INCISION (06/17/13) THORACENTESIS (04/25/12) Family History: States: Unknown Family Hx - Social History Hx Tobacco Use: No Hx Alcohol Use: No Hx Substance Use: No - Immunization History Hx Tetanus Toxoid Vaccination: Yes Hx Influenza Vaccination: Yes Hx Pneumococcal Vaccination: Yes Review Of Systems Except As Marked, All Systems Reviewed And Found Negative. Constitutional: Negative for: Fever, Chills Cardiovascular: Negative for: Chest Pain, Palpitations Respiratory: Negative for: Cough, Shortness of Breath Gastrointestinal: Negative for: Nausea, Vomiting, Abdominal Pain Neurological: Positive for: Dizziness. Negative for: Weakness, Numbness, Headache Physical Exam - Physical Exam Appears: Non-toxic, No Acute Distress Skin: Normal Color, Warm, Dry Head: Atraumatic, Normacephalic Eye(s): bilateral: Normal Inspection Nose: Normal Oral Mucosa: Moist Neck: Supple Chest: Symmetrical Cardiovascular: Rhythm Regular, No Murmur Respiratory: Normal Breath Sounds, No Rales, No Rhonchi, No Wheezing Gastrointestinal/Abdominal: Soft, No Tenderness Back: No CVA Tenderness Extremity: Normal ROM Neurological/Psych: Oriented x3, Normal Speech ED Course And Treatment - Laboratory Results Result Diagrams: 08/07/17 14:32 08/07/17 14:32 O2 Sat by Pulse Oximetry: 94 - CT Scan/US Head CT Other Rad Studies (CT/US): Read By Radiologist, Radiology Report Reviewed CT/US Interpretation: Accession No. : [id number]. Patient Name / ID : WILFREDO [place] / [id number]. Exam Date : 08/07/2017 14:47:47 ( Approved ). Study Comment : Sex / Age : F / [id number]. Creator : Linnette Franz MD. Dictator : Linnette Franz MD. Weight Checker : Music Agent : Linnette Franz MD. Approver2 : Report Date : 08/07/2017 15:17:07. My Comment : . PROCEDURE: CT HEAD WITHOUT CONTRAST. HISTORY: Dizziness and weakness. COMPARISON: . TECHNIQUE: Axial computed tomography images were obtained through the head/brain without intravenous contrast. Radiation dose: Total exam DLP = 839.97 mGy-cm. This CT exam was performed using one or more of the following dose reduction techniques: Automated exposure control, adjustment of the mA and/ or kV according to patient size, and/or use of iterative reconstruction technique. FINDINGS: HEMORRHAGE: No intracranial hemorrhage. BRAIN: There is stable position of a right-sided trans parietal shunt catheter terminating in the corpus callosal through the right frontal horn. There is redemonstration of left inferior frontal and anterior temporal lobe cystic encephalomalacia and right inferior and paramedian frontal lobe encephalomalacia, stable since the prior examination. There is stable appearance of aneurysm clips in the suprasellar cistern. VENTRICLES: No hydrocephalus. CALVARIUM: Status post left frontotemporal craniotomy. PARANASAL SINUSES: There is a small retention cyst/polyp in the left maxillary sinus and chronic right sphenoid sinusitis. MASTOID AIR CELLS: Bilateral mastoid air cells are underdeveloped. OTHER FINDINGS: None. IMPRESSION: No acute intracranial abnormality. Status post clipping of aneurysm with stable cystic encephalomalacia in the right inferior paramedian, left inferior and left anterior temporal lobes. Stable position of right trans parietal shunt catheter without evidence of hydrocephalus. Progress Note: Blood work, UA, EKG, CXR, head CT ordered and reviewed. Patient was given Meclizine, and IV fluids. Case discussed with Dr. Salazar who accepts patient under his service. Disposition - Disposition Disposition: HOSPITALIZED Disposition Time: 16:05 Condition: FAIR - Clinical Impression Clinical Impression: Dizziness - PA / MICROSTRATEGY ARCHITECT / Resident Statement MD/DO has reviewed & agrees with the documentation as recorded. - Scribe Statement The provider has reviewed the documentation as recorded by the Scribe Abundio King All medical record entries made by the Scribe were at my direction and personally dictated by me. I have reviewed the chart and agree that the record accurately reflects my personal performance of the history, physical exam, medical decision making, and the department course for this patient. I have also personally directed, reviewed, and agree with the discharge instructions and disposition. Decision To Admit - Pt Status Changed To: Hospital Disposition Of: Observation - . Bed Request Type: Regular Admitting Physician: Harshal Salazar Patient Diagnosis: Dizziness
[2017-08-07] MEDS ORDERED: Sodium Chloride 0.9% 500 ML IV STA (14:23)
[2017-08-07] MEDS ORDERED: Sodium Chloride 0.9% 1,000 ML ONE (14:33)
[2017-08-07 14:36] LABS: BASO % 0.9 % (0.0-2.0); EOS % 3.4 % (0.0-4.0); HEMATOCRIT 39.8 % (34.0-47.0); LYMPH % 32.6 % (20.0-40.0); MEAN CELL VOLUME 91.8 fL (81.0-99.0); MEAN CORPUSCULAR HEMOGLOBIN 30.5 pg (27.0-31.0); MEAN CORPUSCULAR HGB CONC 33.2 g/dL (33.0-37.0); MEAN PLATELET VOLUME 9.2 fL (7.2-11.7); NRBC % 0.1 % (0.0-2.0); WHITE BLOOD COUNT 7.2 K/uL (4.8-10.8)
[2017-08-07 14:37] LABS: BASO # 0.1 K/uL (0.0-0.2); EOS # 0.2 K/uL (0.0-0.7); LYMPH # 2.3 K/uL (1.0-4.3); MONO # 0.8 K/uL (0.0-0.8)
[2017-08-07 14:49] LABS: INR 1.8
[2017-08-07 14:59] LABS: CHLORIDE 102 mmol/L (98-107)
[2017-08-07 15:00] LABS: SODIUM 138 mmol/L (132-148)
[2017-08-07 15:02] LABS: ALB/GLOB RATIO 1.1 (1.0-2.1); ALKALINE PHOSPHATASE 65 U/L (38-126); AST/SGOT 35 U/L (14-36); CARBON DIOXIDE 23 mmol/L (22-30); GFR AFRICAN-AMERICAN > 60
[2017-08-07 15:03] LABS: ALT/SGPT 32 U/L (9-52); BLOOD UREA NITROGEN 13 mg/dL (7-17); CALCIUM 9.7 mg/dl (8.6-10.4); GLUCOSE,RANDOM 143 mg/dL (65-105); MAGNESIUM 1.8 mg/dL (1.6-2.3)
[2017-08-07 16:40] LABS: URINE BILIRUBIN NEGATIVE (NEGATIVE); URINE BLOOD NEGATIVE (NEGATIVE); URINE COLOR Straw (YELLOW); URINE GLUCOSE (UA) NORMAL (Normal); URINE KETONE NEGATIVE (NEGATIVE); URINE LEUKOCYTE ESTERASE NEG Leu/uL (Negative); URINE PROTEIN NEGATIVE (NEGATIVE); URINE UROBILINOGEN NORMAL mg/dL (0.2-1.0)
[2017-08-07 18:11] VITALS: RESP 20
[2017-08-07] MEDS ORDERED: Tramadol 25 mg PO PRN (19:26)
[2017-08-07] MEDS: Sodium Chloride 0.9% 1,000 ML IV SCH (19:42)
--- NOTE | 2017-08-07 19:51 | RAD ---
HISTORY: weakness/dizziness COMPARISON: Chest x-ray performed 03/17/17 TECHNIQUE: Chest, one view. FINDINGS: Examination limited by habitus. Catheter projects over the soft tissues of the right neck, right paola thorax and right upper quadrant ; presumably CHIEF PETROLEUM ENGINEER shunt catheter. The catheter appears looped at the level of the right upper lobe. Correlate clinically. LUNGS: Soft tissue attenuation limits evaluation of the right lung base. Bibasilar atelectasis/ infiltrate and or small pleural effusion suspected. Biapical pleural thickening. No definite pneumothorax. Please note that chest x-ray has limited sensitivity for the detection of pulmonary masses. CARDIOVASCULAR: Cardiomegaly. Ectatic aorta. Calcifications of the aorta. OSSEOUS STRUCTURES: Degenerative changes. VISUALIZED UPPER ABDOMEN: Unremarkable. OTHER FINDINGS: None. IMPRESSION: Catheter projects over the soft tissues of the right neck, right paola thorax and right upper quadrant ; presumably CHIEF PETROLEUM ENGINEER shunt catheter. The catheter appears looped at the level of the right upper lobe. Correlate clinically. Enlargement of the cardiomediastinal silhouette. Soft tissue attenuation limits evaluation of the right lung base. Bibasilar atelectasis/ infiltrate and or small pleural effusion suspected. Biapical pleural thickening.
--- NOTE | 2017-08-07 19:51 | CT ---
PROCEDURE: CT HEAD WITHOUT CONTRAST. HISTORY: Dizziness and weakness COMPARISON: 03/17/2017. TECHNIQUE: Axial computed tomography images were obtained through the head/brain without intravenous contrast. Radiation dose: Total exam DLP = 839.97 mGy-cm. This CT exam was performed using one or more of the following dose reduction techniques: Automated exposure control, adjustment of the mA and/or kV according to patient size, and/or use of iterative reconstruction technique. FINDINGS: HEMORRHAGE: No intracranial hemorrhage. BRAIN: There is stable position of a right-sided trans parietal shunt catheter terminating in the corpus callosal through the right frontal horn. There is redemonstration of left inferior frontal and anterior temporal lobe cystic encephalomalacia and right inferior and paramedian frontal lobe encephalomalacia, stable since the prior examination. There is stable appearance of aneurysm clips in the suprasellar cistern. VENTRICLES: No hydrocephalus. CALVARIUM: Status post left frontotemporal craniotomy. PARANASAL SINUSES: There is a small retention cyst/polyp in the left maxillary sinus and chronic right sphenoid sinusitis. MASTOID AIR CELLS: Bilateral mastoid air cells are underdeveloped. OTHER FINDINGS: None. IMPRESSION: No acute intracranial abnormality. Status post clipping of aneurysm with stable cystic encephalomalacia in the right inferior paramedian, left inferior and left anterior temporal lobes. Stable position of right trans parietal shunt catheter without evidence of hydrocephalus.
[2017-08-07] MEDS ORDERED: Rosuvastatin Calcium 2.5 mg Tab PO SCH (22:00)
[2017-08-07] MEDS: Albuterol-Ipratrop 3 mg / 0.5 (3 ml) UD IH SCH ×2 (22:15)
[2017-08-07] MEDS: (Novolog) Insulin Aspart, Recombinant 100 u/ml 10 ml vial SC SCH (22:43)
[2017-08-08] MEDS: Albuterol-Ipratrop 3 mg / 0.5 (3 ml) UD IH SCH ×4 (00:37→16:13)
[2017-08-08] MEDS ORDERED: Levothyroxine 100 MCG TAB PO SCH (06:30)
[2017-08-08 07:48] LABS: BASO # 0.1 K/uL (0.0-0.2); BASO % 0.9 % (0.0-2.0); EOS # 0.2 K/uL (0.0-0.7); EOS % 4.2 % (0.0-4.0); HEMATOCRIT 37.7 % (34.0-47.0); LYMPH # 2.3 K/uL (1.0-4.3); LYMPH % 39.7 % (20.0-40.0); MEAN CELL VOLUME 92.3 fL (81.0-99.0); MEAN CORPUSCULAR HEMOGLOBIN 31.7 pg (27.0-31.0); MEAN CORPUSCULAR HGB CONC 34.4 g/dL (33.0-37.0); MONO # 0.7 K/uL (0.0-0.8); MONO % 11.1 % (0.0-10.0); NRBC % 0.2 % (0.0-2.0); RED CELL DISTRIBUTION WIDTH 14.6 % (11.5-14.5); WHITE BLOOD COUNT 5.9 K/uL (4.8-10.8)
[2017-08-08] MEDS ORDERED: Tiotropium 18 mcg Cap For Inhalation IH SCH (08:00)
[2017-08-08 08:17] LABS: CHLORIDE 106 mmol/L (98-107); SODIUM 140 mmol/L (132-148)
[2017-08-08 08:18] LABS: POTASSIUM 3.8 mmol/L (3.6-5.2)
[2017-08-08 08:19] LABS: GFR AFRICAN-AMERICAN > 60
[2017-08-08 08:20] LABS: ALKALINE PHOSPHATASE 62 U/L (38-126); ALT/SGPT 33 U/L (9-52); AST/SGOT 31 U/L (14-36); BLOOD UREA NITROGEN 10 mg/dL (7-17); CARBON DIOXIDE 23 mmol/L (22-30); GLUCOSE,RANDOM 107 mg/dL (65-105); TOTAL PROTEIN 7.5 g/dL (6.3-8.3)
[2017-08-08 08:21] LABS: CALCIUM 8.8 mg/dl (8.6-10.4)
[2017-08-08] MEDS: (Novolog) Insulin Aspart, Recombinant 100 u/ml 10 ml vial SC SCH ×3 (08:37→17:04)
[2017-08-08] MEDS: Sodium Chloride 0.9% 1,000 ML IV SCH (08:41)
[2017-08-08] MEDS: Omega-3-Acid Ethyl Esters 1 GM Cap PO SCH ×2 (10:04→17:27)
[2017-08-08 15:33] VITALS: BP 144/87; PULSE 80; TEMP 97.6; O2SAT 98
--- NOTE | 2017-08-08 18:19 | CP.PCM.DIS ---
Provider - Provider Date of Admission: 08/07/17 16:05 Attending physician: Harshal Salazar MD Time Spent in preparation of Discharge (in minutes): 30 Diagnosis - Discharge Diagnosis (1) Dehydration Status: Resolved Priority: High (2) Dizziness Status: Resolved Priority: High (3) Diarrhea Status: Resolved Priority: High Hospital Course - Lab Results Lab Results: Most Recent Lab Values WBC 5.9 K/uL (4.8-10.8) 08/08/17 07:33 RBC 4.09 Mil/uL (3.80-5.20) 08/08/17 07:33 Hgb 13.0 g/dL (11.0-16.0) 08/08/17 07:33 Hct 37.7 % (34.0-47.0) 08/08/17 07:33 MCV 92.3 fL (81.0-99.0) 08/08/17 07:33 MCH 31.7 pg (27.0-31.0) H 08/08/17 07:33 MCHC 34.4 g/dL (33.0-37.0) 08/08/17 07:33 RDW 14.6 % (11.5-14.5) H 08/08/17 07:33 Plt Count 205 K/uL (130-400) 08/08/17 07:33 MPV 9.0 fL (7.2-11.7) 08/08/17 07:33 Neut % (Auto) 44.1 % (50.0-75.0) L 08/08/17 07:33 Lymph % (Auto) 39.7 % (20.0-40.0) 08/08/17 07:33 B[place]so[place] % (Auto) 11.1 % (0.0-10.0) H 08/08/17 07:33 Eos % (Auto) 4.2 % (0.0-4.0) H 08/08/17 07:33 Baso % (Auto) 0.9 % (0.0-2.0) 08/08/17 07:33 Neut # 2.6 K/uL (1.8-7.0) 08/08/17 07:33 Lymph # 2.3 K/uL (1.0-4.3) 08/08/17 07:33 Bledsoe # 0.7 K/uL (0.0-0.8) 08/08/17 07:33 Eos # 0.2 K/uL (0.0-0.7) 08/08/17 07:33 Baso # 0.1 K/uL (0.0-0.2) 08/08/17 07:33 PT 21.1 SECONDS (9.7-12.2) H 08/07/17 14:32 INR 1.8 08/07/17 14:32 APTT 43 SECONDS (21-34) H 08/07/17 14:32 Sodium 140 mmol/L (132-148) 08/08/17 07:33 Potassium 3.8 mmol/L (3.6-5.2) 08/08/17 07:33 Chloride 106 mmol/L (98-107) 08/08/17 07:33 Carbon Dioxide 23 mmol/L (22-30) 08/08/17 07:33 Anion Gap 15 (10-20) 08/08/17 07:33 BUN 10 mg/dL (7-17) 08/08/17 07:33 Creatinine 0.7 mg/dL (0.7-1.2) 08/08/17 07:33 Est GFR ( Amer) > 60 08/08/17 07:33 Est GFR (Non-Af Amer) > 60 08/08/17 07:33 POC Glucose (mg/dL) 105 mg/dL (65-110) 08/08/17 16:17 Random Glucose 107 mg/dL (65-105) H 08/08/17 07:33 Lactic Acid 1.8 mmol/L (0.7-2.1) 08/07/17 14:32 Calcium 8.8 mg/dl (8.6-10.4) 08/08/17 07:33 Magnesium 1.8 mg/dL (1.6-2.3) 08/07/17 14:32 Total Bilirubin 1.0 mg/dL (0.2-1.3) 08/08/17 07:33 AST 31 U/L (14-36) 08/08/17 07:33 ALT 33 U/L (9-52) 08/08/17 07:33 Alkaline Phosphatase 62 U/L (38-126) 08/08/17 07:33 Total Creatine Kinase 43 U/L (30-135) 08/07/17 14:32 CK-MB (Mass) 0.87 ng/mL (0.0-3.38) 08/07/17 14:32 Troponin I < 0.0120 ng/mL (0.00-0.120) 08/07/17 14:32 Total Protein 7.5 g/dL (6.3-8.3) 08/08/17 07:33 Albumin 3.8 g/dL (3.5-5.0) 08/08/17 07:33 Globulin 3.7 gm/dL (2.2-3.9) 08/08/17 07:33 Albumin/Globulin Ratio 1.0 (1.0-2.1) 08/08/17 07:33 Urine Color Straw (YELLOW) 08/07/17 16:22 Urine Clarity Clear (Clear) 08/07/17 16:22 Urine pH 7.0 (5.0-8.0) 08/07/17 16:22 Ur Specific [place] 1.005 (1.003-1.030) 08/07/17 16:22 Urine Protein Negative mg/dL (NEGATIVE) 08/07/17 16:22 Urine Glucose (UA) Normal mg/dL (Normal) 08/07/17 16:22 Urine Ketones Negative mg/dL (NEGATIVE) 08/07/17 16:22 Urine Blood Negative (NEGATIVE) 08/07/17 16:22 Urine Nitrate Negative (NEGATIVE) 08/07/17 16:22 Urine Bilirubin Negative (NEGATIVE) 08/07/17 16:22 Urine Urobilinogen Normal mg/dL (0.2-1.0) 08/07/17 16:22 Ur Leukocyte Esterase Neg Yadira/uL (Negative) 08/07/17 16:22 - Hospital Course Hospital Course: 72 years old female with PMHx significant for HTN, Type II DM. 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 Patient presented to ER complaining of dizziness and diarrhea. Initial evaluation showed Dehydration. Patient admitted for Observation. Patient started on IN Normal Saline. Cardiac Enzymes normal. CT scan of the Head without acute bleed or infarct. Patient's condition improved and she was discharged home to follow up at my office in one week. Discharge Exam - Head Exam Head Exam: ATRAUMATIC, NORMAL INSPECTION, NORMOCEPHALIC - Eye Exam Eye Exam: EOMI, Normal appearance, PERRL - ENT Exam ENT Exam: Mucous Membranes Moist, Normal Exam - Neck Exam Neck exam: Full Rom, Normal Inspection - Respiratory Exam Respiratory Exam: Clear to PA & Lateral, NORMAL BREATHING PATTERN, UNREMARKABLE - Cardiovascular Exam Cardiovascular Exam: REGULAR RHYTHM, +S1, +S2 - GI/Abdominal Exam GI & Abdominal Exam: Normal Bowel Sounds, Soft, Unremarkable - Extremities Exam Extremities exam: full ROM, normal capillary refill, normal inspection - Back Exam Back exam: FULL ROM, NORMAL INSPECTION - Neurological Exam Neurological exam: Alert, CN II-XII Intact, Normal Gait, Oriented x3, Reflexes Normal - Psychiatric Exam Psychiatric exam: Normal Affect, Normal Mood - Skin Skin Exam: Intact, Normal Color Discharge Plan - Follow Up Plan Condition: GOOD Disposition: HOME/ ROUTINE Patient education suggested?: No Instructions: Rotavirus Infection (DC), Rotavirus Infection (GEN), Nutrition Tips for Relief of Diarrhea (DC), Nutrition Tips for Relief of Diarrhea (GEN)
== END 2017-08-08 19:30 | disposition home or self-care (01) ==
LOC: C.ER 13:07 → C.9E 16:05 → C.3T 18:03
PROVIDERS: ADMIT Internal Medicine; ATTEND Internal Medicine
DX: E86.0 Dehydration (principal); R42 Dizziness and giddiness; R19.7 Diarrhea, unspecified; E03.9 Hypothyroidism, unspecified; E11.9 Type 2 diabetes mellitus without complications; E78.00 Pure hypercholesterolemia, unspecified; E78.5 Hyperlipidemia, unspecified; G93.89 Other specified disorders of brain; I10 Essential (primary) hypertension; J44.9 Chronic obstructive pulmonary disease, unspecified; Z98.2 Presence of cerebrospinal fluid drainage device
CPT/HCPCS: 36415; 70450; 71010; 80053; 81001; 82550; 82553; 82948; 83605; 83735; 84484; 85025; 85610; 85730; 94640; 99285; G0378; J7040

== ENCOUNTER 2018-09-28 15:11 | Emergency (ER) | payer MEDICARE, MEDICAID ==
[2018-09-28 15:11] VITALS: BMI 38.5
--- NOTE | 2018-09-28 15:47 | C.PDOC ---
History Of Present Illness 73 y/o female with a PMHx of DVT, s/p IVC filter on xarelto, s/p WAISTLINE JOINER LOCKSTITCH Shunt, brought in by family for evaluation of increasing lethargy since last night. states the patient was last seen well around 4pm yesterday prior to going to bed. Today she went to see hematology for follow up, and Dr. Alcaraz found patient to be altered, sent her to the ED to rule out shunt dysfunction. Otherwise family denies any fevers, chills, night sweats, pain, dysuria, rash, SOB, slurred speech, change in vision, unilateral weakness, numbness, or other deficit. Hem/onc: Dr. Alcaraz Time Seen by Provider: 09/28/18 15:55 Chief Complaint (Nursing): Altered Mental Status History Per: Family History/Exam Limitations: None Onset/Duration Of Symptoms: Hrs (x 24) Current Symptoms Are (Timing): Still Present Usual Baseline: Alert Oriented Speech Is: Normal Additional History Per: Patient, Prior Records Past Medical History Vital Signs: Last Vital Signs Temp 98.4 F 09/28/18 15:20 Pulse 78 09/28/18 15:20 Resp 18 09/28/18 15:20 BP 114/71 09/28/18 15:20 Pulse Ox 96 09/28/18 15:20 - Medical History PMH: Asthma, Bronchitis, COPD, Dementia, Diabetes, Gastritis, Gall Bladder Disease, HTN, Hypercholesterolemia, Hyperlipidemia, Hypothyroidism, Pneumonia, Seizures Denies: Chronic Kidney Disease Surgical History: Cholecystectomy - [facility] Procedures CENTRAL VENOUS CATHETER PLACEMENT WITH GUIDANCE (06/17/13) DECORTICATION OF LUNG (06/17/13) DRAINAGE OF SPINAL CANAL, PERCUTANEOUS APPROACH, DIAGNOSTIC (03/17/17) DX ULTRASOUND-HEART (06/17/13) DX ULTRASOUND-THORAX NEC (04/25/12) ENDOSCOPIC BRONCHIAL BX (06/17/13) INSERT INTERCOSTAL CATH (06/17/13) NON-INVASIVE MECHANICAL VENTILATION (06/17/13) OTHER PLEURAL INCISION (06/17/13) THORACENTESIS (04/25/12) Family History: States: Unknown Family Hx - Social History Hx Tobacco Use: No Hx Alcohol Use: No Hx Substance Use: No - Immunization History Hx Tetanus Toxoid Vaccination: Yes Hx Influenza Vaccination: Yes Hx Pneumococcal Vaccination: Yes Review Of Systems Constitutional: Positive for: Weakness (generalized). Negative for: Fever, Chills, Sweats Eyes: Negative for: Vision Change Cardiovascular: Negative for: Chest Pain Respiratory: Negative for: Cough, Shortness of Breath Gastrointestinal: Negative for: Nausea, Vomiting, Diarrhea Genitourinary: Negative for: Dysuria, Hematuria Skin: Negative for: Rash Neurological: Positive for: Altered Mental Status. 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) Ear(s): Bilateral: Normal Nose: Normal Oral Mucosa: Moist Lips: Normal Appearing Throat: Normal, No Erythema, No Exudate Neck: Normal, Trachea Midline, Supple, Other (No meningeal signs- negative kernig's and brudzinskis) Chest: Symmetrical Cardiovascular: Rhythm Regular, Other (No rub) Respiratory: No Rales, No Rhonchi, No Wheezing Gastrointestinal/Abdominal: Soft, No Tenderness, No Distention Back: Normal Inspection, No CVA Tenderness, No Vertebral Tenderness Extremity: Normal ROM, No Tenderness Extremity: Bilateral: Normal Color And Temperature Pulses: Left Dorsalis Pedis: Normal, Right Dorsalis Pedis: Normal Neurological/Psych: Oriented x3, Normal Speech, Normal Cognition, Normal Cranial Nerves (CN 2-12 intact), Normal Motor, Normal Sensation, Other (Oriented to place and time) Other Neurological Findings: No Facial Palsy Extremity: Right: No Drift, Left: No Drift, Upper: No Drift, Lower: No Drift ED Course And Treatment - Laboratory Results Result Diagrams: 09/28/18 16:13 09/28/18 18:39 O2 Sat by Pulse Oximetry: 96 (RA) Pulse Ox Interpretation: Normal Medical Decision Making Medical Decision Makin73 y/o F sent in from Dr. Singh office for altered mentation, as per family patient has been lethargic and drowsy since 4:00pm yesterday. No indication for Code Stroke, pt is on Xarelto. Symptoms began at 4pm yesterday, therefore pt is outside of TPA window as well. Initial Plan: --EKG --Chest x-ray --CMP --Troponin I --Ammonia --Magnesium --TSH --CBC --Blood culture --CT Head --Shuntogram x-Ray --Doppler ultrasound b/l upper and lower ext Progress: EK bpm, NSR, L BBB (no change compared to EKG on 07/24/18), no STEMI, no sgarbossa 17:10 labs largely unremarkable UA negative CXR negative pt denies any abd pain. CT Head resulted: No evidence of acute intracranial hemorrhage mass effect or midline shift. Right frontal approach ventriculostomy catheter in place. No evidence of hydrocephalus. Still awaiting shuntogram reading. 20:36 Pt and family notes she is at baseline mentation and physical capacity since being given IVF. Shunt series read via [facility] Dr. Enrrique Carrillo M.D., and is negative. 20:[address] Sierra- to admit to his service pt agreeable and in NAD. appreciate consult w/ Dr. Alcaraz (pts hem onc): continue xarelto at this time, no indication for heparin or lovenox at this time. Venous doppler to be done in AM. family and pt agreeable to plan. Disposition - Disposition Disposition Time: 20:44 Condition: GOOD Forms: [employer] [facility] (Czech) - Clinical Impression Clinical Impression: Altered mental status - Scribe Statement The provider has reviewed the documentation as recorded by the Kd Prince Provider Attestation: All medical record entries made by the Viktoriaibe were at my direction and personally dictated by me. I have reviewed the chart and agree that the record accurately reflects my personal performance of the history, physical exam, medical decision making, and the department course for this patient. I have also personally directed, reviewed, and agree with the discharge instructions and disposition.
[2018-09-28 16:17] LABS: BASO # 0.1 K/uL (0.0-0.2); BASO % 1.2 % (0.0-2.0); EOS # 0.4 K/uL (0.0-0.7); EOS % 8.1 % (0.0-4.0); LYMPH # 2.1 K/uL (1.0-4.3); LYMPH % 38.4 % (20.0-40.0); MEAN CELL VOLUME 97.6 fL (81.0-99.0); MEAN CORPUSCULAR HEMOGLOBIN 32.9 pg (27.0-31.0); MEAN CORPUSCULAR HGB CONC 33.7 g/dL (33.0-37.0); MEAN PLATELET VOLUME 9.1 fL (7.2-11.7); MONO # 0.6 K/uL (0.0-0.8); MONO % 10.4 % (0.0-10.0); NEUT # 2.3 K/uL (1.8-7.0); NEUT % 41.9 % (50.0-75.0); NRBC % 0.1 % (0.0-2.0); RBC 3.66 Mil/uL (3.80-5.20); RED CELL DISTRIBUTION WIDTH 16.1 % (11.5-14.5); WHITE BLOOD COUNT 5.4 K/uL (4.8-10.8)
--- NOTE | 2018-09-28 17:06 | CT ---
Date of service: 09/28/2018 PROCEDURE: CT HEAD WITHOUT CONTRAST. HISTORY: ams COMPARISON: Comparison is made with 07/23/2018 TECHNIQUE: Axial computed tomography images were obtained through the head/brain without intravenous contrast. Radiation dose: Total exam DLP = 1078.94 mGy-cm. This CT exam was performed using one or more of the following dose reduction techniques: Automated exposure control, adjustment of the mA and/or kV according to patient size, and/or use of iterative reconstruction technique. FINDINGS: HEMORRHAGE: No intracranial hemorrhage. BRAIN: Suprasellar aneurysmal clip in the suprasellar region. There is adjacent encephalomalacia and gliosis in the left temporal and frontal lobes. No atrophy or chronic microvascular ischemic changes. VENTRICLES: There is right frontal approach ventriculostomy catheter extending to the frontal horn of the left lateral ventricle. The ventricles are normal in size and shape otherwise. CALVARIUM: Prior cranial STEMI changes are again noted at the left temporal bone. There is a pin hole in the right frontal bone. PARANASAL SINUSES: Unremarkable as visualized. No significant inflammatory changes. MASTOID AIR CELLS: Unremarkable as visualized. No inflammatory changes. OTHER FINDINGS: None. IMPRESSION: No evidence of acute intracranial hemorrhage mass effect or midline shift. Right frontal approach ventriculostomy catheter in place. No evidence of hydrocephalus.
[2018-09-28 17:48] LABS: URINE BACTERIA OCC (<OCC); URINE BILIRUBIN NEGATIVE (NEGATIVE); URINE BLOOD NEGATIVE (NEGATIVE); URINE CLARITY Clear (Clear); URINE COLOR Straw (YELLOW); URINE GLUCOSE (UA) NORMAL (Normal); URINE LEUKOCYTE ESTERASE NEGATIVE Leu/uL (Negative); URINE PROTEIN NEGATIVE (NEGATIVE); URINE UROBILINOGEN NORMAL mg/dL (0.2-1.0)
--- NOTE | 2018-09-28 18:20 | RAD ---
HISTORY: ams COMPARISON: Chest x-ray performed 08/07/17 TECHNIQUE: Chest, one view. FINDINGS: Tubing projects along the right neck, right hemithorax, and right upper abdomen; compatible with RESIDENT CARE MANAGER RN shunt. LUNGS: Biapical pleural thickening. Moderate pulmonary venous congestion. Bibasilar atelectasis. Small right pleural effusion and/or consolidation. No definite pneumothorax. Please note that chest x-ray has limited sensitivity for the detection of pulmonary masses. CARDIOVASCULAR: Cardiomegaly. Ectatic aorta. Atherosclerotic calcification present. OSSEOUS STRUCTURES: Degenerative changes. VISUALIZED UPPER ABDOMEN: Unremarkable. OTHER FINDINGS: None. IMPRESSION: Tubing along the right hemithorax consistent with RESIDENT CARE MANAGER RN shunt catheter. Moderate pulmonary venous congestion. Small right pleural effusion and/or consolidation. Biapical pleural thickening. Cardiomegaly.
[2018-09-28 18:53] LABS: ALB/GLOB RATIO 1.1 (1.0-2.1); ALBUMIN 3.9 g/dL (3.5-5.0); ALT/SGPT 18 U/L (9-52); AST/SGOT 21 U/L (14-36); BLOOD UREA NITROGEN 17 mg/dL (7-17); CALCIUM 9.4 mg/dl (8.6-10.4); GFR NON-AFRICAN AMERICAN 54
[2018-09-28 19:02] LABS: B-TYPE NATRIURETIC PEPTIDE 417 pg/mL (0-900)
[2018-09-28] MEDS ORDERED: Albuterol-Ipratrop 3 mg / 0.5 (3 ml) UD IH SCH (21:45)
[2018-09-28] MEDS ORDERED: Rosuvastatin Calcium 2.5 mg Tab PO SCH (22:00)
[2018-09-28] MEDS ORDERED: (Novolin R) Insulin Human Regular 100 units/ml vial SC SCH (22:00)
[2018-09-28] MEDS ORDERED: Albuterol-Ipratrop 3 mg / 0.5 (3 ml) UD ONE (22:43)
[2018-09-29 04:17] VITALS: O2SAT 94
[2018-09-29 08:41] VITALS: BP 144/75; PULSE 78; RESP 18
[2018-09-29 08:46] VITALS: TEMP 98.4
[2018-09-29] MEDS ORDERED: RIVASTIGMINE 13.3 MG TD SCH ×2 (10:00→12:00)
--- NOTE | 2018-09-29 10:55 | CP.PCM.CON ---
History of Present Illness - History of Present Illness History of Present Illness: As per chart, Miss Shah is a 73 y/o female with a PMHx of DVT, s/p IVC filter on xarelto, s/p LIQUOR RUNNER Shunt, brought in by family for evaluation of increasing lethargy since last night. states the patient was last seen well around 4pm yesterday prior to going to bed. Today she went to see hematology for follow up, and Dr. Alcaraz found patient to be altered, sent her to the ED to rule out shunt dysfunction. Otherwise family denies any fevers, chills, night sweats, pain, dysuria, rash, SOB, slurred speech, change in visio n, unilateral weakness, numbness, or other deficit. She is not a tpa candidate and is now stable and able to follow commands. As per family, she became acutely dizzy and unable to walk properly. She recently had a LIQUOR RUNNER shunt placed in [facility]. ROS: not obtainable. On exam: AAox1. RIght ptosis, which is baseline. CN 2-12 normal. speech fluent. Can name and repeat. motor: strength : 5/5 ul and ll bl. sensory: not able to evaluate. cerebellar: no dysmetria. no truncal ataxia. +1 dtr ul and ll bl. Toes downgoing. Past Patient History - Infectious Disease Hx of Infectious Diseases: None - Past Medical History & Family History Past Medical History?: Yes - Past Social History Smoking Status: Never Smoked - CARDIAC Hx Hypercholesterolemia: Yes Hx Hypertension: Yes - PULMONARY Hx Asthma: Yes Hx Bronchitis: Yes Hx Chronic Obstructive Pulmonary Disease (COPD): Yes Hx Pneumonia: Yes - NEUROLOGICAL Hx Dementia: Yes Hx Seizures: Yes - HEENT Hx HEENT Problems: Yes 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) Hx Cataracts: Yes (had cataract sx) Other/Comment: SLEETMUTE cristofer. ears - RENAL Hx Chronic Kidney Disease: No - ENDOCRINE/METABOLIC Hx Hypothyroidism: Yes - HEMATOLOGICAL/ONCOLOGICAL Hx Blood Disorders: No Other/Comment: L leg DVT - INTEGUMENTARY Hx Dermatological Problems: No - MUSCULOSKELETAL/RHEUMATOLOGICAL Hx Falls: No - GASTROINTESTINAL Hx Gall Bladder Disease: Yes Hx Gastritis: Yes - GENITOURINARY/GYNECOLOGICAL Hx Genitourinary Disorders: No - PSYCHIATRIC Hx Psychophysiologic Disorder: No Hx Substance Use: No - SURGICAL HISTORY Hx Cholecystectomy: Yes - ANESTHESIA Hx Anesthesia: Yes Hx Anesthesia Reactions: No Hx Malignant Hyperthermia: No Meds Allergies/Adverse Reactions: Allergies Allergy/AdvReac Type Severity Reaction Status Date / Time moxifloxacin HCl Allergy RASH Verified 07/24/18 15:01 [From Avelox] - Medications Medications: Current Medications Albuterol/Ipratropium (Duoneb 3 Mg/0.5 Mg (3 Ml) Ud) 0.5 ml IH RQ4 [facility] Last Admin: 09/28/18 22:35 Dose: 0.5 ml Aspirin (Aspirin Chewable) 81 mg PO DAILY [facility] Carvedilol (Coreg) 6.25 mg PO DAILY [facility] Enoxaparin Sodium (Lovenox) 70 mg SC Q12 [facility] Furosemide (Lasix) 20 mg PO DAILY [facility] Home Med (Rivastigmine [Exelon 13.3 Mg/24 Hr Patch]) 13.3 mg TD DAILY [facility] Insulin Human Regular (Novolin R) 0 unit SC ACHS [facility]; Protocol Last Admin: 09/28/18 23:09 Dose: Not Given Losartan Potassium (Cozaar) 100 mg PO DAILY [facility] Memantine (Namenda) 10 mg PO DAILY [facility] Metformin HCl (Glucophage) 500 mg PO DAILY [facility] Montelukast Sodium (Singulair) 10 mg PO DAILY [facility] Rosuvastatin Calcium (Crestor) 2.5 mg PO HS [facility] Sitagliptin Phosphate (Januvia) 50 mg PO DAILY [facility] Results - Vital Signs Recent Vital Signs: Last Vital Signs Temp 98.4 F 09/29/18 08:32 Pulse 78 09/29/18 08:32 Resp 18 09/29/18 08:32 BP 144/75 09/29/18 08:32 Pulse Ox 94 L 09/29/18 06:19 - Labs Result Diagrams: 09/28/18 16:13 09/28/18 18:39 Labs: Laboratory Results - last 24 hr 09/28/18 09/28/18 09/28/18 15:32 16:13 16:13 WBC 5.4 RBC 3.66 L Hgb 12.0 Hct 35.7 MCV 97.6 MCH 32.9 H MCHC 33.7 RDW 16.1 H Plt Count 183 MPV 9.1 Neut % (Auto) 41.9 L Lymph % (Auto) 38.4 [place] % (Auto) 10.4 H Eos % (Auto) 8.1 H Baso % (Auto) 1.2 Neut # (Auto) 2.3 Lymph # (Auto) 2.1 [place] # (Auto) 0.6 Eos # (Auto) 0.4 Baso # (Auto) 0.1 Sodium Potassium Chloride Carbon Dioxide Anion Gap BUN Creatinine Est GFR ( Amer) Est GFR (Non-Af Amer) POC Glucose (mg/dL) 119 H Random Glucose Calcium Magnesium 1.8 Total Bilirubin AST ALT Alkaline Phosphatase Ammonia Troponin I < 0.0120 NT-Pro-B Natriuret Pep Total Protein Albumin Globulin Albumin/Globulin Ratio TSH 3rd Generation 4.46 Urine Color Urine Clarity Urine pH Ur Specific [place] Urine Protein Urine Glucose (UA) Urine Ketones Urine Blood Urine Nitrate Urine Bilirubin Urine Urobilinogen Ur Leukocyte Esterase Urine WBC (Auto) Urine RBC (Auto) Urine Bacteria 09/28/18 09/28/18 09/28/18 16:13 17:31 18:39 WBC RBC Hgb Hct MCV MCH MCHC RDW Plt Count MPV Neut % (Auto) Lymph % (Auto) [place] % (Auto) Eos % (Auto) Baso % (Auto) Neut # (Auto) Lymph # (Auto) [place] # (Auto) Eos # (Auto) Baso # (Auto) Sodium 143 Potassium 3.9 Chloride 109 H Carbon Dioxide 27 Anion Gap 11 BUN 17 Creatinine 1.0 Est GFR ( Amer) > 60 Est GFR (Non-Af Amer) 54 POC Glucose (mg/dL) Random Glucose 116 H Calcium 9.4 Magnesium Total Bilirubin 1.0 AST 21 ALT 18 Alkaline Phosphatase 65 Ammonia 9 Troponin I NT-Pro-B Natriuret Pep 417 Total Protein 7.4 Albumin 3.9 Globulin 3.5 Albumin/Globulin Ratio 1.1 TSH 3rd Generation Urine Color Straw Urine Clarity Clear Urine pH 6.0 Ur Specific [place] 1.004 Urine Protein Negative Urine Glucose (UA) Normal Urine Ketones Negative Urine Blood Negative Urine Nitrate Negative Urine Bilirubin Negative Urine Urobilinogen Normal Ur Leukocyte Esterase Negative Urine WBC (Auto) 2 Urine RBC (Auto) < 1 Urine Bacteria Occ H 09/28/18 09/29/18 22:35 07:27 WBC RBC Hgb Hct MCV MCH MCHC RDW Plt Count MPV Neut % (Auto) Lymph % (Auto) [place] % (Auto) Eos % (Auto) Baso % (Auto) Neut # (Auto) Lymph # (Auto) [place] # (Auto) Eos # (Auto) Baso # (Auto) Sodium Potassium Chloride Carbon Dioxide Anion Gap BUN Creatinine Est GFR ( Amer) Est GFR (Non-Af Amer) POC Glucose (mg/dL) 110 101 Random Glucose Calcium Magnesium Total Bilirubin AST ALT Alkaline Phosphatase Ammonia Troponin I NT-Pro-B Natriuret Pep Total Protein Albumin Globulin Albumin/Globulin Ratio TSH 3rd Generation Urine Color Urine Clarity Urine pH Ur Specific [place] Urine Protein Urine Glucose (UA) Urine Ketones Urine Blood Urine Nitrate Urine Bilirubin Urine Urobilinogen Ur Leukocyte Esterase Urine WBC (Auto) Urine RBC (Auto) Urine Bacteria Assessment & Plan - Assessment and Plan (Free Text) Plan: CT head: no hydrocephalus. LIQUOR RUNNER shunt in place. A/p: 73 yr old woman with hydrocephalus and dizziness which I feel is unrelated to her hydrocephalus. She has a dvt on xarelto so therefore is on stroke prophylaxis. Currently her NIH stroke scale is 0. Plan: 1. MRi of brain to assess for possible posterior circulation stroke if possible. 2. continue xarelto. 3. PT, gait training. Our team will follow if family is amenable and does not want second opinion. Thank you Dr. lopez Neurology
--- NOTE | 2018-09-29 11:35 | VASCLAB ---
Date of service: 09/29/2018 PROCEDURE: Upper Extremity Venous Duplex Exam HISTORY: Swelling PRIORS: None. TECHNIQUE: Bilateral upper extremity, internal jugular, subclavian, axillary, brachial, ulnar, radial, basilic and upper cephalic veins were evaluated. Flow was assessed with color Doppler, compressibility, assessment of phasic flow and augmentation response. Report prepared by JYOTI Shepard FINDINGS: RIGHT: 1. Internal Jugular: 1.1. Compressibility - Fully compressible: Thrombus - None : Flow - Phasic: Augmentation -Normal: Reflux - None. 2. Subclavian: 2.1. Compressibility - Fully compressible: Thrombus - None : Flow - Phasic: Augmentation -Normal: Reflux - None. 3. Axillary: 3.1. Compressibility - Fully compressible: Thrombus - None : Flow - Phasic: Augmentation -Normal: Reflux - None. 4. Brachial: 4.1. Compressibility - Fully compressible: Thrombus - None: Flow - Phasic: Augmentation -Normal: Reflux - None. 5. Ulnar: 5.1. Compressibility - Fully compressible: Thrombus - None: Flow - Phasic: Augmentation -Normal: Reflux - None. 6. Radial: 6.1. Compressibility - Fully compressible: Thrombus - None: Flow - Phasic: Augmentation - Normal: Reflux - None. 7. Cephalic: 7.1. Compressibility - Fully compressible: Thrombus - None: Flow - Phasic: Augmentation -Normal: Reflux - None. 8. Basilic: 8.1. Compressibility - Fully compressible: Thrombus - None: Flow - Phasic: Augmentation -Normal: Reflux - None. LEFT: 1. Internal Jugular: 1.1. Compressibility - Fully compressible: Thrombus - None : Flow - Phasic: Augmentation -Normal: Reflux - None. 2. Subclavian: 2.1. Compressibility - Fully compressible: Thrombus - None : Flow - Phasic: Augmentation -Normal: Reflux - None. 3. Axillary: 3.1. Compressibility - Fully compressible: Thrombus - None : Flow - Phasic: Augmentation -Normal: Reflux - None. 4. Brachial: 4.1. Compressibility - Fully compressible: Thrombus - None: Flow - Phasic: Augmentation -Normal: Reflux - None. 5. Ulnar: 5.1. Compressibility - Fully compressible: Thrombus - None: Flow - Phasic: Augmentation -Normal: Reflux - None. 6. Radial: 6.1. Compressibility - Fully compressible: Thrombus - None: Flow - Phasic: Augmentation - Normal: Reflux - None. 7. Cephalic: 7.1. Compressibility - Fully compressible: Thrombus - None: Flow - Phasic: Augmentation -Normal: Reflux - None. 8. Basilic: 8.1. Compressibility - Fully compressible: Thrombus - None: Flow - Phasic: Augmentation -Normal: Reflux - None. OTHER FINDINGS: Right: None. Left: None. IMPRESSION: Right: No evidence of vein thrombosis of the right upper extremity with excellent venous flow. Normal valve function noted of the right side. Left: No evidence of vein thrombosis of the left upper extremity with excellent venous flow. Normal valve function noted of the left side.
--- NOTE | 2018-09-29 17:08 | RAD ---
Date of service: 09/28/2018 Indication: ams Shuntogram Comparison: Shuntogram performed 07/23/18 Findings: EXPLOSIVES MIXER OPERATOR shunt catheter is noted coursing along the right calvarium entering the right neck and traversing the right hemithorax (not imaged as part of this study but demonstrated on chest radiograph performed 09/28/18) and entering the right upper quadrant abdomen terminating in the lateral aspect of the right mid abdomen. Numerous surgical clips are evident throughout the upper abdomen. IVC filter. Nonobstructive bowel gas pattern. Osseous demineralization. Degenerative changes of the osseous structures. Impression: Right-sided EXPLOSIVES MIXER OPERATOR shunt catheter as above.
[2018-09-29] MEDS ORDERED: Enoxaparin 80 mg Syringe SC SCH (22:00)
--- NOTE | 2018-09-29 22:28 | CP.PCM.HP ---
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 ears - RENAL Hx Chronic Kidney Disease: No - ENDOCRINE/METABOLIC Hx Hypothyroidism: Yes - HEMATOLOGICAL/ONCOLOGICAL Hx Blood Disorders: No Other/Comment: L leg DVT - INTEGUMENTARY Hx Dermatological Problems: No - MUSCULOSKELETAL/RHEUMATOLOGICAL Hx Falls: No - GASTROINTESTINAL Hx Gall Bladder Disease: Yes Hx Gastritis: Yes - GENITOURINARY/GYNECOLOGICAL Hx Genitourinary Disorders: No - PSYCHIATRIC Hx Psychophysiologic Disorder: No Hx Substance Use: No - SURGICAL HISTORY Hx Cholecystectomy: Yes - ANESTHESIA Hx Anesthesia: Yes Hx Anesthesia Reactions: No Hx Malignant Hyperthermia: No Meds Allergies/Adverse Reactions: Allergies Allergy/AdvReac Type Severity Reaction Status Date / Time moxifloxacin HCl Allergy RASH Verified 07/24/18 15:01 [From Avelox] Results - Vital Signs Recent Vital Signs: Last Vital Signs Temp 98.4 F 09/29/18 08:32 Pulse 78 09/29/18 08:32 Resp 18 09/29/18 08:32 BP 144/75 09/29/18 08:32 Pulse Ox 94 L 09/29/18 06:19 - Labs Result Diagrams: 09/28/18 16:13 09/28/18 18:39 Labs: Laboratory Results - last 24 hr 09/28/18 09/29/18 22:35 07:27 POC Glucose (mg/dL) 110 101
--- NOTE | 2018-09-29 23:43 | CARD ---
APPROVED REPORT Date of service: 09/28/2018 EKG Measurement Heart [id number] <Conclusion> Normal sinus rhythm Low voltage QRS Incomplete left bundle branch block T wave abnormality, consider inferolateral ischemia Abnormal ECG
--- NOTE | 2018-09-30 07:56 | HP ---
CHIEF COMPLAINT: Generalized weakness and lethargy. HISTORY OF PRESENT ILLNESS: This is a 73-year-old female with history of DVT, status post IVC filter; on Xarelto, status post BINDING FOLDER MACHINE shunt. The patient was brought into the emergency room by a family member because of increasing lethargy that started last night, according to , who saw her yesterday evening at 4 p.m. prior to going to bed, and the patient was supposed to have a hematological followup. 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 Other than that, there is no history of fever, chills, rigors, night sweats, abdominal pain, nausea, vomiting, rash or swelling of feet. There is no hemiparesis or hemiplegia and there is no history of numbness. PAST MEDICAL HISTORY: Bronchial asthma, diabetes, hyperlipidemia, hypothyroidism, BINDING FOLDER MACHINE shunt, cholecystectomy. SOCIAL HISTORY: Nonsmoker. Non-EtOH user. CURRENT MEDICATIONS: At home, she is on metformin, Flomax, Seebri, K-Dur, Lipitor, omega-3, Singulair, Namenda, carvedilol, ____, Exelon, multivitamin, Norvasc, losartan, Lasix, Lyrica, glipizide, Synthroid, alogliptin, Humalog. PHYSICAL EXAMINATION: GENERAL: An elderly female in no distress. ____. VITAL SIGNS: Blood pressure 140/62, pulse 88, respiratory rate 16, temperature 98.1. SKIN: No rashes. No bruits. No purpura. HEENT: Atraumatic and normocephalic. Negative pallor. Negative jaundice. Left eye is blind. Ears normal. NECK: Supple. No JVD. No lymph nodes. CHEST: Chest wall bilateral symmetrical expansion. LUNGS: Clear. CARDIOVASCULAR SYSTEM: S1 and S2 regular. ABDOMEN: Soft. 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 Cranial nerves II through XII are normal. Power 5/5 x4. Plantars are downgoing. ASSESSMENT: 1. Confusional state, etiology unclear, could be toxic metabolic encephalopathy. 2. New-onset deep venous thrombosis in a patient with a history of prior deep venous thrombosis. 3. Hypertension. 4. Diabetes. 5. Hyperlipidemia. PLAN: Lovenox. We will monitor the patient as outpatient, Po Sierra MD
--- NOTE | 2018-09-30 12:37 | VASCLAB ---
Date of service: 09/29/2018 PROCEDURE: Lower Extremity Venous Duplex Exam. HISTORY: Swelling PRIORS: 03/31/2017, abnormal. TECHNIQUE: Bilateral common femoral, femoral, popliteal and posterior tibial, peroneal and great saphenous veins were evaluated. Flow was assessed with color Doppler, compressibility, assessment of phasic flow and augmentation response. Report prepared by JYOTI Shepard FINDINGS: RIGHT: 1. Common Femoral Vein: 1.1. Compressibility - Fully compressible: Thrombus - None : Flow - Phasic: Augmentation -Normal: Reflux - None. 2. Femoral Vein: 2.1. - Partial: Thrombus - Acute : Flow - Absent 3. Popliteal Vein: 3.1. Compressibility - Fully compressible: Thrombus - None : Flow - Phasic: Augmentation -Normal: Reflux - None. 4. Posterior Tibial Vein: 4.1. Compressibility - Fully compressible: Thrombus - None: Flow - Phasic: Augmentation -Normal: Reflux - None. 5. Peroneal Vein: 5.1. Compressibility - Fully compressible: Thrombus - None: Flow - Phasic: Augmentation -Normal: Reflux - None. 6. Great Saphenous Vein: 6.1. Compressibility - Fully compressible: Thrombus - None: Flow - Phasic: Augmentation - Normal: Reflux - None. LEFT: 1. Common Femoral Vein: 1.1. Compressibility - Fully compressible: Thrombus - None: Flow - Phasic: Augmentation -Normal: Reflux - None. 2. Femoral Vein: 2.1. Compressibility - Fully compressible: Thrombus - None: Flow - Phasic: Augmentation -Normal: Reflux - Mild2.80s 3. Popliteal Vein: 3.1. Compressibility - Fully compressible: Thrombus - None : Flow - Phasic: Augmentation -Normal: Reflux - None. 4. Posterior Tibial Vein: 4.1. Compressibility - Fully compressible: Thrombus - None: Flow - Phasic: Augmentation -Normal: Reflux - None. 5. Peroneal Vein: 5.1. Compressibility - Fully compressible: Thrombus - None: Flow - Phasic: Augmentation -Normal: Reflux - None. 6. Great Saphenous Vein: 6.1. Compressibility - Fully compressible: Thrombus - None: Flow - Phasic: Augmentation - Normal: Reflux - None. OTHER FINDINGS: Right: The right femoral vein was partially compressible at proximal and mid thigh, vein is compressible distally. Left: Wall thickening is noted of the left common and superficial femoral veins. IMPRESSION: Right: Partial acute deep vein thrombosis of the right femoral vein, with severe reduction of the venous return. Left: No evidence of deep or superficial vein thrombosis of the left lower extremity. Mild valvular incompetence noted of the left femoral vein. Findings were reported to emergency room nurse Belinda, at 9:56 am.
== END 2018-09-29 11:52 | disposition left against medical advice (07) ==
LOC: C.ER 15:11 → C.9E 20:53 → UNDOADMIN 20:53 → UNDODISIN 09-29 11:52 → C.ER 09-29 11:52
DX: R41.82 Altered mental status, unspecified (principal)

== ENCOUNTER 2018-10-07 12:42 | Inpatient (IN) | payer MEDICARE, MEDICAID ==
[2018-10-07 12:42] VITALS: BMI 38.5
--- NOTE | 2018-10-07 14:06 | C.PDOC ---
History Of Present Illness 73 y/o female with history of Brain Aneurysm, COPD and DM presents to ED with c/o vomiting, diarrhea and generalized weakness for 2 days worse today. As per family patient had urinary catheter placed 2 months ago initially s/p brain surgery, then when attempted removal, did not urinate for 4 hours and it was reinserted, now diagnosed with urinary retention and today was at Dr. Wang office, while waiting to be seen symptoms worsen. Patient was admitted for 2 days at [facility] for mini stroke 2 weeks ago as per family. HPI as per family, limited. They state they were initially diagnosed with pelvic prolapse but station examiner yesterday determined pelvic mass was due to rectocele. Time Seen by Provider: 10/07/18 13:22 Chief Complaint (Nursing): Abdominal Pain History Per: Patient History/Exam Limitations: no limitations Onset/Duration Of Symptoms: Days Current Symptoms Are (Timing): Still Present Past Medical History Reviewed: Historical Data, Nursing Documentation, Vital Signs Vital Signs: Last Vital Signs Temp 98 F 10/07/18 12:49 Pulse 81 10/07/18 12:49 Resp 18 10/07/18 12:49 BP Pulse Ox 94 L 10/07/18 12:49 - Medical History PMH: Asthma, Bronchitis, COPD, Dementia, Diabetes, Gastritis, Gall Bladder Dise ase, HTN, Hypercholesterolemia, Hyperlipidemia, Hypothyroidism, Pneumonia, Seizures Surgical History: Cholecystectomy - [facility] Procedures CENTRAL VENOUS CATHETER PLACEMENT WITH GUIDANCE (06/17/13) DECORTICATION OF LUNG (06/17/13) DRAINAGE OF SPINAL CANAL, PERCUTANEOUS APPROACH, DIAGNOSTIC (03/17/17) DX ULTRASOUND-HEART (06/17/13) DX ULTRASOUND-THORAX NEC (04/25/12) ENDOSCOPIC BRONCHIAL BX (06/17/13) INSERT INTERCOSTAL CATH (06/17/13) NON-INVASIVE MECHANICAL VENTILATION (06/17/13) OTHER PLEURAL INCISION (06/17/13) THORACENTESIS (04/25/12) Family History: States: No Known Family Hx - Social History Hx Tobacco Use: No Hx Alcohol Use: No Hx Substance Use: No - Immunization History Hx Tetanus Toxoid Vaccination: Yes Hx Influenza Vaccination: Yes Hx Pneumococcal Vaccination: Yes Review Of Systems Except As Marked, All Systems Reviewed And Found Negative. Constitutional: Positive for: Weakness Respiratory: Negative for: Cough, Shortness of Breath Gastrointestinal: Positive for: Vomiting, Diarrhea Physical Exam - Physical Exam Additional Physical Exam Comments: Constitutional: Generally weak Head: Scalp incisions Eyes: PERRL. ENT: Dry mucous membranes. Neck: Supple. Cardiovascular: Regular rate. Radial pulse 2+ bilaterally. Chest: No tenderness. Respiratory: R basilar dullness. GI: Soft. Nontender. : Ferro in place. Small tissue mass in introitus. No rectal prolapse. Musculoskeletal: No tenderness of extremities. Skin: No rash. Neurologic: No focal deficit. AAOx3 ED Course And Treatment - Laboratory Results Result Diagrams: 10/07/18 14:05 10/07/18 14:05 O2 Sat by Pulse Oximetry: 94 (RA) Pulse Ox Interpretation: Normal Medical Decision Making Medical Decision Making: Plan: CT abd/pelvis, ECG, Blood work, CXR, UA, influenza test ordered. CXR IMPRESSION: Patient rotation to the right. Small right pleural effusion. No lobar pneumonia. CT abd/pelvis IMPRESSION: Status post subtotal colectomy. Segmental dilatation of small bowel loops in the pelvis, nonspecific and could be related to nonspecific enteritis. Clinical follow-up is advised. Small right pleural effusion. Cefepime administered for UTI. IVF administered for dehydration. Dr. Salazar accepts admission to his service and recommends Dr. Heredia for urology consult. Disposition - Disposition Disposition: HOSPITALIZED Disposition Time: 15:51 Condition: GUARDED - Clinical Impression Clinical Impression: UTI (urinary tract infection), Dehydration, Rectocele, Urinary retention - Scribe Statement The provider has reviewed the documentation as recorded by the Kd Cordova All medical record entries made by the Kd were at my direction and personally dictated by me. I have reviewed the chart and agree that the record accurately reflects my personal performance of the history, physical exam, medical decision making, and the department course for this patient. I have also personally directed, reviewed, and agree with the discharge instructions and d isposition.
[2018-10-07 14:12] LABS: BASO % 0.3 % (0.0-2.0); EOS # 0.4 K/uL (0.0-0.7); EOS % 5.8 % (0.0-4.0); HEMOGLOBIN 13.3 g/dL (11.0-16.0); LYMPH # 1.3 K/uL (1.0-4.3); LYMPH % 18.3 % (20.0-40.0); MEAN CELL VOLUME 100.2 fL (81.0-99.0); MEAN CORPUSCULAR HEMOGLOBIN 33.5 pg (27.0-31.0); MEAN CORPUSCULAR HGB CONC 33.5 g/dL (33.0-37.0); MEAN PLATELET VOLUME 9.1 fL (7.2-11.7); MONO # 0.8 K/uL (0.0-0.8); MONO % 11.3 % (0.0-10.0); NEUT # 4.6 K/uL (1.8-7.0); NEUT % 64.3 % (50.0-75.0); RBC 3.97 Mil/uL (3.80-5.20); RED CELL DISTRIBUTION WIDTH 15.9 % (11.5-14.5); WHITE BLOOD COUNT 7.2 K/uL (4.8-10.8)
[2018-10-07 14:25] LABS: INR 2.7
[2018-10-07 14:41] LABS: ALB/GLOB RATIO 1.1 (1.0-2.1); ALBUMIN 4.5 g/dL (3.5-5.0); ALT/SGPT 16 U/L (9-52); AST/SGOT 20 U/L (14-36); BLOOD UREA NITROGEN 29 mg/dL (7-17); CALCIUM 9.9 mg/dl (8.6-10.4); GFR NON-AFRICAN AMERICAN 22; LIPASE 180 U/L (23-300)
[2018-10-07] MEDS ORDERED: Sodium Chloride 0.9% 1,000 ML IV STA (14:42)
[2018-10-07 14:44] LABS: CK-MB 0.85 ng/mL (0.0-3.38)
--- NOTE | 2018-10-07 14:44 | RAD ---
Date of service: 10/07/2018 HISTORY: weakness COMPARISON: 09/28/2018. FINDINGS: Right-sided central venous catheter terminates in the right atrium. LUNGS: There is patient rotation to the right. The lungs are clear. PLEURA: Small right pleural effusion. No left pleural effusion or pneumothorax. CARDIOVASCULAR: The heart is normal in size. There unfolding of the aorta. Aortic atherosclerotic calcifications are present. OSSEOUS STRUCTURES: Within normal limits for the patient's age. VISUALIZED UPPER ABDOMEN: Normal. OTHER FINDINGS: None. IMPRESSION: Patient rotation to the right. Small right pleural effusion. No lobar pneumonia.
[2018-10-07 15:00] LABS: SQUAMOUS EPITHIAL 1 /hpf (0-5); URINE BACTERIA FEW (<OCC); URINE BILIRUBIN NEGATIVE (NEGATIVE); URINE BLOOD 1+ (NEGATIVE); URINE CLARITY Hazy (Clear); URINE COLOR Amber (YELLOW); URINE GLUCOSE (UA) NORMAL (Normal); URINE HYALINE CAST >20 /lpf (0-2); URINE LEUKOCYTE ESTERASE 3+ Leu/uL (Negative); URINE PROTEIN 2+ mg/dL (NEGATIVE); URINE UROBILINOGEN NORMAL mg/dL (0.2-1.0)
--- NOTE | 2018-10-07 16:27 | CT ---
Date of service: 10/07/2018 PROCEDURE: CT Abdomen and Pelvis without intravenous contrast HISTORY: Abdominal pain, vomiting, diarrhea, lethargy COMPARISON: 03/29/2017. TECHNIQUE: CT scan of the abdomen and pelvis was performed without administration of intravenous contrast. Oral contrast was not administered. Coronal and sagittal reformatted images were obtained. . Radiation dose: Total exam DLP = 532.58 mGy-cm. This CT exam was performed using one or more of the following dose reduction techniques: Automated exposure control, adjustment of the mA and/or kV according to patient size, and/or use of iterative reconstruction technique. FINDINGS: LOWER THORAX: The visualized lungs are clear. Mild cardiomegaly and trace right pleural effusion. LIVER: Normal in size. No intrahepatic ductal dilatation. GALLBLADDER AND BILE DUCTS: Surgically absent. PANCREAS: Normal in size. No ductal dilatation. SPLEEN: Normal in size. ADRENALS: Normal in size. No discrete nodule. KIDNEYS AND URETERS: Normal in size without nephrolithiasis. No hydronephrosis. VASCULATURE: No aortic aneurysm. There are aortic atherosclerotic calcifications present. An infrarenal IVC filter remains in place. BOWEL: There is gaseous distension of the stomach. There is also segmental dilatation of small bowel loops in the pelvis. The proximal small bowel loops are normal in caliber.. Status post subtotal colectomy. There are multiple surgical clips in the abdomen. PERITONEUM: No free fluid. No free air. LYMPH NODES: No enlarged lymph nodes. BLADDER: Indwelling catheter with subsequent decompression of the urinary bladder. REPRODUCTIVE: The uterus is normal in size BONES: No acute fracture. OTHER FINDINGS: Right-sided ventriculoperitoneal shunt catheter terminates in the right lower quadrant. IMPRESSION: Status post subtotal colectomy. Segmental dilatation of small bowel loops in the pelvis, nonspecific and could be related to nonspecific enteritis. Clinical follow-up is advised. Small right pleural effusion.
[2018-10-07] MEDS ORDERED: Cefepime IV 1 gm in Dextrose 1 GM/50 ML BAG IVPB STA (16:51)
--- NOTE | 2018-10-07 19:19 | CP.PCM.CON ---
History of Present Illness - History of Present Illness History of Present Illness: 73 y/o female with history of Brain Aneurysm, COPD and DM presents to ED with c/o vomiting, diarrhea and generalized weakness for 2 days worse today. As per family patient had urinary catheter placed 2 months ago initially s/p brain navas rgery, then when attempted removal, did not urinate for 4 hours and it was reinserted, now diagnosed with urinary retention and today was at Dr. Wang office, while waiting to be seen symptoms worsen. Patient was admitted for 2 days at [facility] [place], [place] for mini stroke 2 weeks ago as per family. HPI as per family, limited. They state they were initially diagnosed with pelvic prolapse but administrative accountant yesterday determined pelvic mass was due to rectocele. started on empiric IV antibiotics for UTI pending eval/ cultures - Medical History PMH: Asthma, Bronchitis, COPD, Dementia, Diabetes, Gastritis, Gall Bladder Disease, HTN, Hypercholesterolemia, Hyperlipidemia, Hypothyroidism, Pneumonia, Seizures Surgical History: Cholecystectomy - [facility] Procedures CENTRAL VENOUS CATHETER PLACEMENT WITH GUIDANCE (06/17/13) DECORTICATION OF LUNG (06/17/13) DRAINAGE OF SPINAL CANAL, PERCUTANEOUS APPROACH, DIAGNOSTIC (03/17/17) DX ULTRASOUND-HEART (06/17/13) DX ULTRASOUND-THORAX NEC (04/25/12) ENDOSCOPIC BRONCHIAL BX (06/17/13) INSERT INTERCOSTAL CATH (06/17/13) NON-INVASIVE MECHANICAL VENTILATION (06/17/13) OTHER PLEURAL INCISION (06/17/13) THORACENTESIS (04/25/12) Review of Systems - Review of Systems Systems not reviewed;Unavailable: Altered Mental Status All systems: reviewed and no additional remarkable complaints except - Constitutional Constitutional: As Per HPI - EENT Eyes: absent: As Per HPI, Blind Spots, Blurred Vision, Change in Vision, Decreased Night Vision, Diplopia, Discharge, Dry Eye, Exophthalmos, Floaters, Irritation, Itchy Eyes, Loss of Peripheral Vision, Pain, Photophobia, Requires Corrective Lenses, Sees Flashes, Spots in Vision, Tunnel Vision, Other Visual Disturbances, Loss of Vision, Other Ears: absent: As Per HPI, Decreased Hearing, Ear Discharge, Ear Pain, Tinnitus, Abnormal Hearing, Disequilibrium, Dizziness, Other Nose/Mouth/Throat: absent: As Per HPI, Epistaxis, Nasal Congestion, Nasal Discharge, Nasal Obstruction, Nasal Trauma, Nose Pain, Post Nasal Drip, Sinus Pain, Sinus Pressure, Bleeding Gums, Change in Voice, Dental Pain, Dry Mouth, Dysphagia, Halitosis, Hoarsness, Lip Swelling, Mouth Lesions, Mouth Pain, Odynophagia, Sore Throat, Throat Swelling, Tongue Swelling, Facial Pain, Neck Pain, Neck Mass, Other - Cardiovascular Cardiovascular: absent: As Per HPI, Acrocyanosis, Chest Pain, Chest Pain at Rest, Chest Pain with Activity, Claudication, Diaphoresis, Dyspnea, Dyspnea on Exertion, Edema, Irregular Heart Rhythm, Pain Radiating to Arm/Neck/Jaw, Leg Edema, Leg Ulcers, Lightheadedness, Orthopnea, Palpitations, Paroxysmal Nocturnal Dyspnea, Pedal Edema, Radiating Pain, Rapid Heart Rate, Slow Heart Rate, Syncope, Other - Respiratory Respiratory: absent: As Per HPI, Cough, Dyspnea, Hemoptysis, Dyspnea on Exertion, Wheezing, Snoring, Stridor, Pain on Inspiration, Chest Congestion, Excessive Mucous Production, Change in Mucous Color, Pain with Coughing, Other - Gastrointestinal Gastrointestinal: absent: As Per HPI, Abdominal Pain, Belching, Bloating, Change in Bowel Habits, Change in Stool Character, Coffee Ground Emesis, Constipation, Cramping, Diarrhea, Dyspepsia, Dysphagia, Early Satiety, Excessive Flatus, Fecal Incontinence, Heartburn, Hematemesis, Hematochezia, Loose Stools, Melena, Nausea, Odynophagia, Temesmus, Vomiting, Other - Genitourinary Genitourinary: As Per HPI - Reproductive: Female Reproductive:Female: absent: As Per HPI, Amenorrhea, Amenorrhea/ Control, Currently Menstual, Cycle <21 Days, Cycle >35 Days, Cycle Variable, Menses 1-7 Days, Menses >/= 8 Days, Menses Variable, Cycle > 4 Weeks Between, No Menses for 6 Months, Heavy Menses, Light Menses, Normal Menses, Spotting Between Cycles, S/P Hysterectomy, Menopausal, Post Menopausal, Premenarche, Abnormal Vaginal Bleeding, Dysmenorrhea, Dyspareunia, Genital Lesions, Genital Pruritis, Pelvic Pain, Prolapse Symptoms, Sexual Dysfunction, Vaginal Discharge, Vaginal Dryness, Vaginal Odor, Vaginal Pruritis, Other - Menstruation Menstruation: absent: As Per HPI, Amenorrhea, Amenorrhea/ Control, Curr ently Menstual, Cycle <21 Days, Cycle >35 Days, Cycle Variable, Menses 1-7 Days, Menses >/= 8 Days, Menses Variable, Cycle > 4 Weeks Between, No Menses for 6 Months, Heavy Menses, Light Menses, Normal Menses, Spotting Between Cycles, S/P Hysterectomy, Menopausal, Post Menopausal, Premenarche, Abnormal Vaginal Bleeding, Dysmenorrhea, Other - Musculoskeletal Musculoskeletal: absent: As Per HPI, Abnormal Gait, Arthralgias, Atrophy, Back Pain, Deformity, Joint Swelling, Limited Range of Motion, Loss of Height, Muscle Cramps, Muscle Weakness, Myalgias, Neck Pain, Numbness, Radiating Pain into Limb, Stiffness, Tingling, Other - Integumentary Integumentary: absent: As Per HPI, Acne, Alopecia, Bleeding Lesions, Change in Hair, Change in Nails, Change in Pigmentation, Changing Lesions, Dry Skin, Erythema, Furuncle, Hirsutism, Lesions, New Lesions, Non-Healing Lesions, Photosensitivity, Pruritus, Rash, Skin Pain, Skin Ulcer, Sores, Striae, Swelling, Unusual Bruising, Wounds, Jaundice, Other - Neurological Neurological: As Per HPI - Psychiatric Psychiatric: absent: As Per HPI, Abnormal Sleep Pattern, Anhedonia, Anxiety, Auditory Hallucinations, Behavioral Changes, Change in Appetite, Change in Libido, Confusion, Depression, Difficulty Concentrating, Hallucinations, Homicidal Ideation, Hopelessness, Irritability, Memory Loss, Mood Swings, Panic Attacks, Paranoia, Suicidal Ideation, Visual Hallucinations, Tactile Hallucinations, Other - Endocrine Endocrine: absent: As Per HPI, Change in Body Appearance, Change in Libido, Cold Intolorance, Deepening of Voice, Excessive Sweating, Fatigue, Flushing, Heat Intolorance, Increase in Ring/Shoe/Hat Size, Palpitations, Polydipsia, Polyphagia, Polyuria, Other - Hematologic/Lymphatic Hematologic: absent: As Per HPI, Easy Bleeding, Easy Bruising, Lymphadenopathy, Other Past Patient History - Infectious Disease Hx of Infectious Diseases: None - Past Medical History & Family History Past Medical History?: Yes - Past Social History Smoking Status: Never Smoked - CARDIAC Hx Hypercholesterolemia: Yes Hx Hypertension: Yes - PULMONARY Hx Asthma: Yes Hx Bronchitis: Yes Hx Chronic Obstructive Pulmonary Disease (COPD): Yes Hx Pneumonia: Yes - NEUROLOGICAL Hx Dementia: Yes Hx Seizures: Yes - HEENT Hx HEENT Problems: Yes 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 ears - RENAL Hx Chronic Kidney Disease: No - ENDOCRINE/METABOLIC Hx Hypothyroidism: Yes - HEMATOLOGICAL/ONCOLOGICAL Hx Blood Disorders: No Other/Comment: L leg DVT - INTEGUMENTARY Hx Dermatological Problems: No - MUSCULOSKELETAL/RHEUMATOLOGICAL Hx Falls: No - GASTROINTESTINAL Hx Gall Bladder Disease: Yes Hx Gastritis: Yes - GENITOURINARY/GYNECOLOGICAL Hx Genitourinary Disorders: No - PSYCHIATRIC Hx Substance Use: No - SURGICAL HISTORY Hx Cholecystectomy: Yes - ANESTHESIA Hx Anesthesia: Yes Hx Anesthesia Reactions: No Hx Malignant Hyperthermia: No Meds Allergies/Adverse Reactions: Allergies Allergy/AdvReac Type Severity Reaction Status Date / Time moxifloxacin HCl Allergy RASH Verified 10/07/18 15:19 [From Avelox] - Medications Medications: Current Medications Sodium Chloride (Sodium Chloride 0.9%) 1,000 mls @ 50 mls/hr IV .Q20H KYLE Ceftriaxone Sodium 1 gm/ (Sodium Chloride) 100 mls @ 100 mls/hr IVPB DAILY KYLE; Protocol Insulin Aspart (Novolog) 0 unit SC ACHS KYLE; Protocol Physical Exam - Constitutional Appears: No Acute Distress, Confused, Chronically Ill - Head Exam Head Exam: ATRAUMATIC, NORMAL INSPECTION, NORMOCEPHALIC - Eye Exam Eye Exam: PERRL. absent: Scleral icterus - ENT Exam ENT Exam: Mucous Membranes Dry, Normal External Ear Exam, Normal Oropharynx - Neck Exam Neck exam: Negative for: Lymphadenopathy - Respiratory Exam Respiratory Exam: Decreased Breath Sounds, Rhonchi - Cardiovascular Exam Cardiovascular Exam: REGULAR RHYTHM, +S1, +S2 - GI/Abdominal Exam GI & Abdominal Exam: Diminished Bowel Sounds, Soft. absent: Tenderness - Rectal Exam Rectal Exam: Deferred - Exam Exam: NORMAL INSPECTION - Extremities Exam Extremities exam: Positive for: pedal pulses present. Negative for: calf tenderness, pedal edema, tenderness - Back Exam Back exam: absent: CVA tenderness (L), CVA tenderness (R), paraspinal tenderness - Neurological Exam Neurological exam: Alert, Altered, CN II-XII Intact - Psychiatric Exam Psychiatric exam: Depressed - Skin Skin Exam: Dry Results - Vital Signs Recent Vital Signs: Last Vital Signs Temp 97.4 F L 10/07/18 18:12 Pulse 62 10/07/18 18:12 Resp 15 10/07/18 18:12 BP 97/64 L 10/07/18 18:12 Pulse Ox 99 10/07/18 18:12 - Labs Result Diagrams: 10/07/18 14:05 10/07/18 14:05 Labs: Laboratory Results - last 24 hr 10/07/18 10/07/18 10/07/18 14:05 14:05 14:05 WBC 7.2 RBC 3.97 Hgb 13.3 Hct 39.8 MCV 100.2 H D MCH 33.5 H MCHC 33.5 RDW 15.9 H Plt Count 214 MPV 9.1 Neut % (Auto) 64.3 Lymph % (Auto) 18.3 L [place] % (Auto) 11.3 H Eos % (Auto) 5.8 H Baso % (Auto) 0.3 Neut # (Auto) 4.6 Lymph # (Auto) 1.3 [place] # (Auto) 0.8 Eos # (Auto) 0.4 Baso # (Auto) 0.0 PT 30.0 H INR 2.7 APTT 52 H Sodium 137 Potassium 4.2 Chloride 107 Carbon Dioxide 17 L Anion Gap 17 BUN 29 H Creatinine 2.2 H Est GFR ( Amer) 26 Est GFR (Non-Af Amer) 22 POC Glucose (mg/dL) Random Glucose 125 H Calcium 9.9 Total Bilirubin 1.7 H AST 20 ALT 16 Alkaline Phosphatase 79 Total Creatine Kinase 28 L CK-MB (Mass) 0.85 Troponin I < 0.0120 Total Protein 8.7 H Albumin 4.5 Globulin 4.2 H Albumin/Globulin Ratio 1.1 Lipase 180 Urine Color Urine Clarity Urine pH Ur Specific [place] Urine Protein Urine Glucose (UA) Urine Ketones Urine Blood Urine Nitrate Urine Bilirubin Urine Urobilinogen Ur Leukocyte Esterase Urine WBC (Auto) Urine RBC (Auto) Ur Squamous Epith Cells Urine Bacteria Hyaline Casts Influenza Typ A,B (EIA) 10/07/18 10/07/18 10/07/18 14:39 14:39 17:16 WBC RBC Hgb Hct MCV MCH MCHC RDW Plt Count MPV Neut % (Auto) Lymph % (Auto) [place] % (Auto) Eos % (Auto) Baso % (Auto) Neut # (Auto) Lymph # (Auto) [place] # (Auto) Eos # (Auto) Baso # (Auto) PT INR APTT Sodium Potassium Chloride Carbon Dioxide Anion Gap BUN Creatinine Est GFR ( Amer) Est GFR (Non-Af Amer) POC Glucose (mg/dL) 87 Random Glucose Calcium Total Bilirubin AST ALT Alkaline Phosphatase Total Creatine Kinase CK-MB (Mass) Troponin I Total Protein Albumin Globulin Albumin/Globulin Ratio Lipase Urine Color Natali Urine Clarity Hazy Urine pH 5.0 Ur Specific [place] 1.019 Urine Protein 2+ H Urine Glucose (UA) Normal Urine Ketones Negative Urine Blood 1+ H Urine Nitrate Negative Urine Bilirubin Negative Urine Urobilinogen Normal Ur Leukocyte Esterase 3+ H Urine WBC (Auto) 396 H Urine RBC (Auto) 15 H Ur Squamous Epith Cells 1 Urine Bacteria Few H Hyaline Casts >20 H Influenza Typ A,B (EIA) Negative for flu a/b Assessment & Plan (1) Dehydration Status: Acute (2) Rectocele Status: Acute (3) Renal insufficiency Status: Acute (4) UTI (urinary tract infection) Status: Acute (5) Urinary retention Status: Acute (6) Altered mental status Status: Acute - Assessment and Plan (Free Text) Assessment: empiric IV rx ordered willl follow cultures on board
[2018-10-07] MEDS: Cefepime IV 1 gm in Dextrose 1 GM/50 ML BAG IVPB SCH (21:31)
[2018-10-07] MEDS: Sodium Chloride 0.9% 1,000 ML IV SCH (22:21)
[2018-10-07] MEDS: (Novolog) Insulin Aspart, Recombinant 100 u/ml 10 ml vial SC SCH (22:22)
[2018-10-08] MEDS: (Novolog) Insulin Aspart, Recombinant 100 u/ml 10 ml vial SC SCH ×4 (06:34→21:42)
[2018-10-08] MEDS: Levothyroxine 100 MCG TAB PO SCH (06:49)
[2018-10-08] MEDS: Albuterol 0.083% Inhal Sol (2.5 mg/3 mL) UD IH PRN ×2 (07:45→13:42)
[2018-10-08] MEDS ORDERED: Fluticasone-Vilanterol 100/25mcg Diskus INH ONE (08:00)
[2018-10-08 09:31] LABS: CK-MB 1.57 ng/mL (0.0-3.38)
[2018-10-08] MEDS: Enoxaparin 60 mg Syringe SC SCH (10:16)
--- NOTE | 2018-10-08 10:16 | CP.PCM.HP ---
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 Patient denies chest pain, cough, shortness of breath or abdominal pain. Present on Admission - Present on Admission Any Indicators Present on Admission: Yes History of DVT/PE: Yes Urinary Catheter: Yes Review of Systems - Gastrointestinal Gastrointestinal: Dyspepsia - Genitourinary Genitourinary: Difficulty Urinating Past Patient History - Infectious Disease Hx of Infectious Diseases: None - Past Medical History & Family History Past Medical History?: Yes - Past Social History Smoking Status: Never Smoked - CARDIAC Hx Hypercholesterolemia: Yes Hx Hypertension: Yes - PULMONARY Hx Asthma: Yes Hx Bronchitis: Yes Hx Chronic Obstructive Pulmonary Disease (COPD): Yes Hx Pneumonia: Yes - NEUROLOGICAL Hx Dementia: Yes Hx Seizures: Yes - HEENT Hx HEENT Problems: Yes 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 ears - RENAL Hx Chronic Kidney Disease: No - ENDOCRINE/METABOLIC Hx Hypothyroidism: Yes - HEMATOLOGICAL/ONCOLOGICAL Hx Blood Disorders: No Other/Comment: L leg DVT - INTEGUMENTARY Hx Dermatological Problems: No - MUSCULOSKELETAL/RHEUMATOLOGICAL Hx Falls: No - GASTROINTESTINAL Hx Gall Bladder Disease: Yes Hx Gastritis: Yes - GENITOURINARY/GYNECOLOGICAL Hx Genitourinary Disorders: No - PSYCHIATRIC Hx Substance Use: No - SURGICAL HISTORY Hx Cholecystectomy: Yes - ANESTHESIA Hx Anesthesia: Yes Hx Anesthesia Reactions: No Hx Malignant Hyperthermia: No Meds Allergies/Adverse Reactions: Allergies Allergy/AdvReac Type Severity Reaction Status Date / Time moxifloxacin HCl Allergy RASH Verified 10/07/18 15:19 [From Avelox] Physical Exam - Constitutional Appears: Non-toxic, No Acute Distress - Head Exam Head Exam: ATRAUMATIC, NORMAL INSPECTION, NORMOCEPHALIC - Eye Exam Eye Exam: Conjunctival injection (Ptosis.) - Neck Exam Neck exam: Positive for: Full Rom, Normal Inspection - Respiratory Exam Respiratory Exam: Clear to Auscultation Bilateral, NORMAL BREATHING PATTERN - Cardiovascular Exam Cardiovascular Exam: REGULAR RHYTHM, +S1, +S2 - GI/Abdominal Exam GI & Abdominal Exam: Normal Bowel Sounds, Soft - Rectal Exam Rectal Exam: Deferred - Extremities Exam Extremities exam: Positive for: full ROM, normal inspection - Neurological Exam Neurological exam: Alert, Oriented x3 - Psychiatric Exam Psychiatric exam: Normal Affect, Normal Mood - Skin Skin Exam: Intact, Normal Color, Warm Results - Vital Signs Recent Vital Signs: Last Vital Signs Temp 98.2 F 10/08/18 08:05 Pulse 86 10/08/18 08:19 Resp 18 10/08/18 08:05 BP 107/69 10/08/18 08:19 Pulse Ox 100 10/08/18 08:05 - Labs Result Diagrams: 10/07/18 14:05 10/07/18 14:05 Labs: Laboratory Results - last 24 hr 10/07/18 10/07/18 10/07/18 14:05 14:05 14:05 WBC 7.2 RBC 3.97 Hgb 13.3 Hct 39.8 MCV 100.2 H D MCH 33.5 H MCHC 33.5 RDW 15.9 H Plt Count 214 MPV 9.1 Neut % (Auto) 64.3 Lymph % (Auto) 18.3 L [place] % (Auto) 11.3 H Eos % (Auto) 5.8 H Baso % (Auto) 0.3 Neut # (Auto) 4.6 Lymph # (Auto) 1.3 [place] # (Auto) 0.8 Eos # (Auto) 0.4 Baso # (Auto) 0.0 PT 30.0 H INR 2.7 APTT 52 H Sodium 137 Potassium 4.2 Chloride 107 Carbon Dioxide 17 L Anion Gap 17 BUN 29 H Creatinine 2.2 H Est GFR ( Amer) 26 Est GFR (Non-Af Amer) 22 POC Glucose (mg/dL) Random Glucose 125 H Calcium 9.9 Total Bilirubin 1.7 H AST 20 ALT 16 Alkaline Phosphatase 79 Total Creatine Kinase 28 L CK-MB (Mass) 0.85 Troponin I < 0.0120 Total Protein 8.7 H Albumin 4.5 Globulin 4.2 H Albumin/Globulin Ratio 1.1 Lipase 180 Urine Color Urine Clarity Urine pH Ur Specific [place] Urine Protein Urine Glucose (UA) Urine Ketones Urine Blood Urine Nitrate Urine Bilirubin Urine Urobilinogen Ur Leukocyte Esterase Urine WBC (Auto) Urine RBC (Auto) Ur Squamous Epith Cells Urine Bacteria Hyaline Casts Influenza Typ A,B (EIA) 10/07/18 10/07/18 10/07/18 14:39 14:39 17:16 WBC RBC Hgb Hct MCV MCH MCHC RDW Plt Count MPV Neut % (Auto) Lymph % (Auto) [place] % (Auto) Eos % (Auto) Baso % (Auto) Neut # (Auto) Lymph # (Auto) [place] # (Auto) Eos # (Auto) Baso # (Auto) PT INR APTT Sodium Potassium Chloride Carbon Dioxide Anion Gap BUN Creatinine Est GFR ( Amer) Est GFR (Non-Af Amer) POC Glucose (mg/dL) 87 Random Glucose Calcium Total Bilirubin AST ALT Alkaline Phosphatase Total Creatine Kinase CK-MB (Mass) Troponin I Total Protein Albumin Globulin Albumin/Globulin Ratio Lipase Urine Color Natali Urine Clarity Hazy Urine pH 5.0 Ur Specific [place] 1.019 Urine Protein 2+ H Urine Glucose (UA) Normal Urine Ketones Negative Urine Blood 1+ H Urine Nitrate Negative Urine Bilirubin Negative Urine Urobilinogen Normal Ur Leukocyte Esterase 3+ H Urine WBC (Auto) 396 H Urine RBC (Auto) 15 H Ur Squamous Epith Cells 1 Urine Bacteria Few H Hyaline Casts >20 H Influenza Typ A,B (EIA) Negative for flu a/b 10/07/18 10/07/18 10/08/18 19:36 22:10 06:26 WBC RBC Hgb Hct MCV MCH MCHC RDW Plt Count MPV Neut % (Auto) Lymph % (Auto) [place] % (Auto) Eos % (Auto) Baso % (Auto) Neut # (Auto) Lymph # (Auto) [place] # (Auto) Eos # (Auto) Baso # (Auto) PT INR APTT Sodium Potassium Chloride Carbon Dioxide Anion Gap BUN Creatinine Est GFR ( Amer) Est GFR (Non-Af Amer) POC Glucose (mg/dL) 88 97 70 Random Glucose Calcium Total Bilirubin AST ALT Alkaline Phosphatase Total Creatine Kinase CK-MB (Mass) Troponin I Total Protein Albumin Globulin Albumin/Globulin Ratio Lipase Urine Color Urine Clarity Urine pH Ur Specific [place] Urine Protein Urine Glucose (UA) Urine Ketones Urine Blood Urine Nitrate Urine Bilirubin Urine Urobilinogen Ur Leukocyte Esterase Urine WBC (Auto) Urine RBC (Auto) Ur Squamous Epith Cells Urine Bacteria Hyaline Casts Influenza Typ A,B (EIA) 10/08/18 08:57 WBC RBC Hgb Hct MCV MCH MCHC RDW Plt Count MPV Neut % (Auto) Lymph % (Auto) [place] % (Auto) Eos % (Auto) Baso % (Auto) Neut # (Auto) Lymph # (Auto) [place] # (Auto) Eos # (Auto) Baso # (Auto) PT INR APTT Sodium Potassium Chloride Carbon Dioxide Anion Gap BUN Creatinine Est GFR ( Amer) Est GFR (Non-Af Amer) POC Glucose (mg/dL) Random Glucose Calcium Total Bilirubin AST ALT Alkaline Phosphatase Total Creatine Kinase 22 L CK-MB (Mass) 1.57 Troponin I < 0.0120 Total Protein Albumin Globulin Albumin/Globulin Ratio Lipase Urine Color Urine Clarity Urine pH Ur Specific [place] Urine Protein Urine Glucose (UA) Urine Ketones Urine Blood Urine Nitrate Urine Bilirubin Urine Urobilinogen Ur Leukocyte Esterase Urine WBC (Auto) Urine RBC (Auto) Ur Squamous Epith Cells Urine Bacteria Hyaline Casts Influenza Typ A,B (EIA) Assessment & Plan (1) UTI (urinary tract infection) Assessment and Plan: BC. UA C&S. Continue Cefepime. ID evaluation. Status: Acute (2) Urinary retention Assessment and Plan: Urology evaluation. Discussed with Dr Wang. Status: Acute (3) Renal insufficiency Assessment and Plan: Nephrology evaluation. Status: Acute (4) Ptosis of eyelid, bilateral Assessment and Plan: Acetylcholine receptor antibodies R/O Myasthenia Gravis. Neurology evaluation. Status: Acute (5) Deep venous thrombosis of lower extremity Assessment and Plan: D/C Xarelto. Start Lovenox, dose adjusted according to EGFR. Status: Acute Priority: High (6) Diabetes Assessment and Plan: Novolog Accucheck with Coverage ACHS. Status: Chronic (7) Hypertension Assessment and Plan: Continue same treatment. Status: Chronic
[2018-10-08] MEDS: Omega-3-Acid Ethyl Esters 1 GM Cap PO SCH ×2 (10:18→17:10)
[2018-10-08 14:36] LABS: CALCIUM 8.8 mg/dl (8.6-10.4)
--- NOTE | 2018-10-08 14:50 | CON ---
DATE: 10/08/2018 COMPREHENSIVE UROLOGIC CONSULTATION. TIME OF CONSULTATION: Roughly 11:00 a.m. BRIEF HISTORY: The patient is a 73-year-old female from [place], status post surgery for insertion of ventriculoperitoneal shunt, which terminates in the right lower quadrant and the patient presented to my office for removal of her indwelling Ferro catheter, status post this surgery. The patient did have a voiding trial previously, but the catheter was only removed for 4 hours and then reinserted without the patient voiding any urine during this period. In my office, the patient developed acute onset of nausea, vomiting, and diarrhea and was sent to the emergency room for evaluation. The patient was admitted for dehydration and acute renal insufficiency with the creatinine of about 2.2 and a GFR of about 26. PAST SURGICAL HISTORY: The patient is also status post a colectomy, most likely for treatment of diverticulitis and no colon cancer. She also had several C-sections and she is 7 and para 7. She has had no other surgeries. PAST MEDICAL HISTORY: Positive for high blood pressure, diabetes mellitus, hyperlipidemia, and hypothyroidism. ALLERGIES: SHE HAS NO KNOWN ALLERGIES TO ANY MEDICATIONS. MEDICATIONS: The patient is currently on Maxipime IV antibiotics by Infectious Disease. SOCIAL HISTORY: She is a nonsmoker and no history of any alcohol use. PHYSICAL EXAMINATION: GENERAL: Today, the patient is a well-developed and well-nourished female. She is alert. She is oriented. HEENT: Examination is grossly within normal limits. NECK: Supple, thyroid nonpalpable. ABDOMEN: Soft, nondistended, and obtunded. No CVA tenderness and no suprapubic tenderness. Ferro catheter is draining jodie urine well. LABORATORY DATA: Her abdominopelvic CT showed, as described above plus normal size kidneys without nephrolithiasis ad no hydronephrosis. Normal adrenals in size. No discrete nodules and the bladder shows an indwelling Ferro catheter with subsequent decompression of the urinary bladder and uterus was normal in size. Her chest x-ray showed a slight right pleural effusion. Her laboratory evaluation on 10/07/2018 from the ER showed a CBC with a WBC count of 7.2, hemoglobin of 13.3, and a hematocrit of 39.8. Platelet count was 214,000. Coagulation profile showed a PT of 30, which is elevated, INR is 2.7, which is also elevated, and a PTT of 52, which is also elevated. Chemistry profile showed a sodium of 137, potassium 4.2, CO2 of 17, and BUN and creatinine of 29 and 2.2 respectively with a GFR of 22 indicating chronic kidney disease, stage IV. Glucose was 88 and glucose today, 10/08/2018, is 70 and a previous random glucose was 125. Calcium 9.9, total bilirubin 1.7, AST 20, ALT 16, and alkaline phosphatase today 79. Troponin level was less than 0.0120. Lipase was 180. Urinalysis on 10/07/2018 showed the color was jodie, clarity hazy, pH 5.0, specific gravity 1.019, protein 2+, glucose normal, and ketones negative. Blood 1+. Nitrite negative. Bilirubin negative. Urobilinogen normal. Leukocyte esterase 3+. 396 wbc's, 15, rbc's with few bacteria per high-power field, and greater than 20 hyaline cast. Urine and blood cultures are pending. Additional urine culture shows positive for gram-negative rods. The patient is currently on Maxipime IV antibiotics as per Dr. Cabral (Infectious Disease). DIAGNOSTIC IMPRESSION: 1. Urinary retention. 2. Urinary tract infection. 3. Chronic kidney disease, stage IV. PLAN: Plan for this patient is to remove the Ferro catheter and give the patient a voiding trial. If the patient is unable to void after 8-10 hours, they can re-insert the 16-Kinyarwanda Ferro catheter into the bladder and gravity drainage. The patient the can be started on bladder training and we could also start the patient on some Flomax at that time 0.4 mg daily. Continue the patient on her IV antibiotic regimen as per Infectious Disease. Timo Wang MD
[2018-10-08 15:35] LABS: CK-MB 1.33 ng/mL (0.0-3.38)
--- NOTE | 2018-10-08 18:17 | CP.PCM.PN ---
Subjective - Date & Time of Evaluation Date of Evaluation: 10/08/18 Time of Evaluation: 08:00 - Subjective Subjective: seen by Dr Castro IV rx in progress Objective - Vital Signs/Intake and Output Vital Signs (last 24 hours): Temp Pulse Resp BP Pulse Ox 98.4 F 81 20 97/61 L 96 10/08/18 16:48 10/08/18 16:48 10/08/18 16:48 10/08/18 16:48 10/08/18 16:48 Intake and Output: 10/08/18 10/08/18 06:59 18:59 Output Total 700 Balance -700 - Medications Medications: Current Medications Albuterol Sulfate (Albuterol 0.083% Inhal Andria (2.5 Mg/3 Ml) Ud) 2.5 mg IH RQ6 PRN PRN Reason: sob Last Admin: 10/08/18 13:42 Dose: 2.5 mg Amlodipine Besylate (Norvasc) 5 mg PO DAILY [facility] Last Admin: 10/08/18 10:18 Dose: 5 mg Carvedilol (Coreg) 6.25 mg PO BID [facility] Last Admin: 10/08/18 17:09 Dose: 6.25 mg Enoxaparin Sodium (Lovenox) 60 mg SC DAILY [facility] Last Admin: 10/08/18 10:16 Dose: 60 mg Fluticasone/Vilanterol (Breo Ellipta 100-25 Mcg Inh) 1 puff INH RQD [facility] Sodium Chloride (Sodium Chloride 0.9%) 1,000 mls @ 50 mls/hr IV .Q20H [facility] Last Admin: 10/07/18 22:21 Dose: 50 mls/hr Cefepime HCl (Maxipime Iv 1 Gm Premix) 1 gm in 50 mls @ 100 mls/hr IVPB Q24H [facility]; Protocol Last Admin: 10/07/18 21:31 Dose: Not Given Insulin Aspart (Novolog) 0 unit SC ACHS [facility]; Protocol Last Admin: 10/08/18 16:56 Dose: Not Given Levothyroxine Sodium (Synthroid) 100 mcg PO DAILY@0630 [facility] Last Admin: 10/08/18 06:49 Dose: 100 mcg Memantine (Namenda) 10 mg PO BID [facility] Last Admin: 10/08/18 17:10 Dose: 10 mg Xzxwa-1-Gzaj Ethyl Esters (Lovaza) 1 gm PO BID [facility] Last Admin: 10/08/18 17:10 Dose: 1 gm Pregabalin (Lyrica) 100 mg PO DAILY [facility] Last Admin: 10/08/18 10:17 Dose: 100 mg Rivastigmine (Exelon 4.6 Mg/24 Hr Patch) 1 patch TD DAILY [facility] Last Admin: 10/08/18 11:00 Dose: 1 patch Rosuvastatin Calcium (Crestor) 2.5 mg PO DAILY [facility] - Labs Labs: 10/07/18 14:05 10/08/18 14:10 PT 30.0 SECONDS (9.7-12.2) H 10/07/18 14:05 INR 2.7 10/07/18 14:05 APTT 52 SECONDS (21-34) H 10/07/18 14:05 - Constitutional Appears: Non-toxic, Confused, Chronically Ill - Head Exam Head Exam: absent: NORMAL INSPECTION, NORMOCEPHALIC - Eye Exam Eye Exam: absent: Scleral icterus - ENT Exam ENT Exam: Mucous Membranes Dry - Neck Exam Neck Exam: absent: Lymphadenopathy - Respiratory Exam Respiratory Exam: Decreased Breath Sounds - Cardiovascular Exam Cardiovascular Exam: REGULAR RHYTHM - GI/Abdominal Exam GI & Abdominal Exam: Distended, Soft - Rectal Exam Rectal Exam: Deferred - Exam Exam: NORMAL INSPECTION - Extremities Exam Extremities Exam: absent: Pedal Edema - Back Exam Back Exam: absent: CVA tenderness (L), CVA tenderness (R) - Neurological Exam Neurological Exam: Altered, CN II-XII Intact - Psychiatric Exam Psychiatric exam: Depressed - Skin Skin Exam: Dry Assessment and Plan (1) Dehydration Status: Acute (2) Rectocele Status: Acute (3) Renal insufficiency Status: Acute (4) UTI (urinary tract infection) Status: Acute (5) Urinary retention Status: Acute (6) Altered mental status Status: Acute - Assessment and Plan (Free Text) Assessment: await gu eval cont rx uti neuro on board
[2018-10-08] MEDS: Cefepime IV 1 gm in Dextrose 1 GM/50 ML BAG IVPB SCH (18:36)
[2018-10-08] MEDS: Sodium Chloride 0.9% 1,000 ML IV SCH (18:36)
[2018-10-08 20:47] LABS: BASO % 0.5 % (0.0-2.0); EOS # 0.4 K/uL (0.0-0.7); EOS % 7.5 % (0.0-4.0); LYMPH # 1.8 K/uL (1.0-4.3); LYMPH % 32.4 % (20.0-40.0); MEAN CORPUSCULAR HEMOGLOBIN 32.3 pg (27.0-31.0); MEAN CORPUSCULAR HGB CONC 32.9 g/dL (33.0-37.0); MEAN PLATELET VOLUME 8.9 fL (7.2-11.7); MONO # 0.7 K/uL (0.0-0.8); MONO % 11.6 % (0.0-10.0); NEUT # 2.7 K/uL (1.8-7.0); RBC 3.45 Mil/uL (3.80-5.20); RED CELL DISTRIBUTION WIDTH 15.7 % (11.5-14.5); WHITE BLOOD COUNT 5.6 K/uL (4.8-10.8)
[2018-10-08 20:58] LABS: HEMOGLOBIN 11.1 g/dL (11.0-16.0)
--- NOTE | 2018-10-08 21:14 | CP.PCM.CON ---
History of Present Illness - History of Present Illness History of Present Illness: REASONS FOR CONSULT : CHUYITA LOW BICARBONATE THAT COULD BE MET ACIDOSIS ALL EMR REVIEWED ,OLD AND CURRENT , PT WAS SEEN AND EXAMINED 73 y/o female with history of Brain Aneurysm, COPD and DM presents to ED with c/o vomiting, diarrhea and generalized weakness for 2 days worse today. As per family patient had urinary catheter placed 2 months ago initially s/p brain surgery, then when attempted removal, did not urinate for 4 hours and it was reinserted, now diagnosed with urinary retention and today was at Dr. Wang office, while waiting to be seen symptoms worsen. Patient was admitted for 2 days at [facility] for mini stroke 2 weeks ago as per family. HPI as per family, limited. They state they were initially diagnosed with pelvic prolapse but director outpatient services yesterday determined pelvic mass was due to rectocele. Time Seen by Provider: 10/07/18 13:22 Chief Complaint (Nursing): Abdominal Pain History Per: Patient History/Exam Limitations: no limitations Onset/Duration Of Symptoms: Days Current Symptoms Are (Timing): Still Present Past Medical History Reviewed: Historical Data, Nursing Documentation, Vital Signs Vital Signs: Last Vital Signs Temp 98 F 10/07/18 12:49 Pulse 81 10/07/18 12:49 Resp 18 10/07/18 12:49 BP Pulse Ox 94 L 10/07/18 12:49 - Medical History PMH: Asthma, Bronchitis, COPD, Dementia, Diabetes, Gastritis, Gall Bladder Disease, HTN, Hypercholesterolemia, Hyperlipidemia, Hypothyroidism, Pneumonia, Seizures Surgical History: Cholecystectomy - [facility] Procedures CENTRAL VENOUS CATHETER PLACEMENT WITH GUIDANCE (06/17/13) DECORTICATION OF LUNG (06/17/13) DRAINAGE OF SPINAL CANAL, PERCUTANEOUS APPROACH, DIAGNOSTIC (03/17/17) DX ULTRASOUND-HEART (06/17/13) DX ULTRASOUND-THORAX NEC (04/25/12) ENDOSCOPIC BRONCHIAL BX (06/17/13) INSERT INTERCOSTAL CATH (06/17/13) NON-INVASIVE MECHANICAL VENTILATION (06/17/13) OTHER PLEURAL INCISION (06/17/13) THORACENTESIS (04/25/12) Family History: States: No Known Family Hx - Social History Hx Tobacco Use: No Hx Alcohol Use: No Hx Substance Use: No Past Patient History - Infectious Disease Hx of Infectious Diseases: None - Past Medical History & Family History Past Medical History?: Yes - Past Social History Smoking Status: Never Smoked - CARDIAC Hx Hypercholesterolemia: Yes Hx Hypertension: Yes - PULMONARY Hx Asthma: Yes Hx Bronchitis: Yes Hx Chronic Obstructive Pulmonary Disease (COPD): Yes Hx Pneumonia: Yes - NEUROLOGICAL Hx Dementia: Yes Hx Seizures: Yes - HEENT Hx HEENT Problems: Yes 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 ears - RENAL Hx Chronic Kidney Disease: No - ENDOCRINE/METABOLIC Hx Hypothyroidism: Yes - HEMATOLOGICAL/ONCOLOGICAL Hx Blood Disorders: No Other/Comment: L leg DVT - INTEGUMENTARY Hx Dermatological Problems: No - MUSCULOSKELETAL/RHEUMATOLOGICAL Hx Falls: No - GASTROINTESTINAL Hx Gall Bladder Disease: Yes Hx Gastritis: Yes - GENITOURINARY/GYNECOLOGICAL Hx Genitourinary Disorders: No - PSYCHIATRIC Hx Substance Use: No - SURGICAL HISTORY Hx Cholecystectomy: Yes - ANESTHESIA Hx Anesthesia: Yes Hx Anesthesia Reactions: No Hx Malignant Hyperthermia: No Meds Allergies/Adverse Reactions: Allergies Allergy/AdvReac Type Severity Reaction Status Date / Time moxifloxacin HCl Allergy RASH Verified 10/07/18 15:19 [From Avelox] - Medications Medications: Current Medications Albuterol Sulfate (Albuterol 0.083% Inhal Andria (2.5 Mg/3 Ml) Ud) 2.5 mg IH RQ6 PRN PRN Reason: sob Last Admin: 10/08/18 13:42 Dose: 2.5 mg Amlodipine Besylate (Norvasc) 5 mg PO DAILY [facility] Last Admin: 10/08/18 10:18 Dose: 5 mg Carvedilol (Coreg) 6.25 mg PO BID [facility] Last Admin: 10/08/18 17:09 Dose: 6.25 mg Enoxaparin Sodium (Lovenox) 60 mg SC DAILY [facility] Last Admin: 10/08/18 10:16 Dose: 60 mg Fluticasone/Vilanterol (Breo Ellipta 100-25 Mcg Inh) 1 puff INH RQD [facility] Sodium Chloride (Sodium Chloride 0.9%) 1,000 mls @ 50 mls/hr IV .Q20H [facility] Last Admin: 10/08/18 18:36 Dose: 50 mls/hr Cefepime HCl (Maxipime Iv 1 Gm Premix) 1 gm in 50 mls @ 100 mls/hr IVPB Q24H [facility]; Protocol Last Admin: 10/08/18 18:36 Dose: 100 mls/hr Insulin Aspart (Novolog) 0 unit SC ACHS [facility]; Protocol Last Admin: 10/08/18 16:56 Dose: Not Given Levothyroxine Sodium (Synthroid) 100 mcg PO DAILY@0630 [facility] Last Admin: 10/08/18 06:49 Dose: 100 mcg Memantine (Namenda) 10 mg PO BID [facility] Last Admin: 10/08/18 17:10 Dose: 10 mg Irrbq-3-Ploq Ethyl Esters (Lovaza) 1 gm PO BID [facility] Last Admin: 10/08/18 17:10 Dose: 1 gm Pregabalin (Lyrica) 100 mg PO DAILY [facility] Last Admin: 10/08/18 10:17 Dose: 100 mg Rivastigmine (Exelon 4.6 Mg/24 Hr Patch) 1 patch TD DAILY [facility] Last Admin: 10/08/18 11:00 Dose: 1 patch Rosuvastatin Calcium (Crestor) 2.5 mg PO DAILY [facility] Results - Vital Signs Recent Vital Signs: Last Vital Signs Temp 98.4 F 10/08/18 16:48 Pulse 81 10/08/18 16:48 Resp 20 10/08/18 16:48 BP 97/61 L 10/08/18 16:48 Pulse Ox 96 10/08/18 16:48 - Labs Result Diagrams: 10/08/18 20:44 10/08/18 14:10 Labs: Laboratory Results - last 24 hr 10/07/18 10/07/18 10/08/18 19:36 22:10 06:26 WBC RBC Hgb Hct MCV MCH MCHC RDW Plt Count MPV Neut % (Auto) Lymph % (Auto) [place] % (Auto) Eos % (Auto) Baso % (Auto) Neut # (Auto) Lymph # (Auto) [place] # (Auto) Eos # (Auto) Baso # (Auto) Sodium Potassium Chloride Carbon Dioxide Anion Gap BUN Creatinine Est GFR ( Amer) Est GFR (Non-Af Amer) POC Glucose (mg/dL) 88 97 70 Random Glucose Calcium Total Creatine Kinase CK-MB (Mass) Troponin I 10/08/18 10/08/18 10/08/18 08:57 11:55 14:10 WBC RBC Hgb Hct MCV MCH MCHC RDW Plt Count MPV Neut % (Auto) Lymph % (Auto) [place] % (Auto) Eos % (Auto) Baso % (Auto) Neut # (Auto) Lymph # (Auto) [place] # (Auto) Eos # (Auto) Baso # (Auto) Sodium 142 Potassium 4.0 Chloride 118 H Carbon Dioxide 13 L Anion Gap 14 BUN 21 H Creatinine 1.3 H Est GFR ( Amer) 48 Est GFR (Non-Af Amer) 40 POC Glucose (mg/dL) 72 Random Glucose 90 Calcium 8.8 Total Creatine Kinase 22 L CK-MB (Mass) 1.57 Troponin I < 0.0120 10/08/18 10/08/18 10/08/18 14:10 16:37 20:44 WBC 5.6 RBC 3.45 L Hgb 11.1 D Hct 33.8 L MCV 98.0 D MCH 32.3 H MCHC 32.9 L RDW 15.7 H Plt Count 176 MPV 8.9 Neut % (Auto) 48.0 L Lymph % (Auto) 32.4 [place] % (Auto) 11.6 H Eos % (Auto) 7.5 H Baso % (Auto) 0.5 Neut # (Auto) 2.7 Lymph # (Auto) 1.8 [place] # (Auto) 0.7 Eos # (Auto) 0.4 Baso # (Auto) 0.0 Sodium Potassium Chloride Carbon Dioxide Anion Gap BUN Creatinine Est GFR ( Amer) Est GFR (Non-Af Amer) POC Glucose (mg/dL) 98 Random Glucose Calcium Total Creatine Kinase 23 L CK-MB (Mass) 1.33 Troponin I < 0.0120 Assessment & Plan - Assessment and Plan (Free Text) Assessment: CHUYITA PROBABLY PRE RENAL AZOTEMIA .. RENAL FUNCTION IMPROVING ON IVF PROBABLE MET ACIDOSIS WITH BICARB 13 .. PROBABLY 2/2 DIARHIA GASTRO ENTERITIS MMP P : C/O IVF C/O PRESENT MANAGEMENT C/O CURRENT CARE WILL DO DAILY BMP AND WATCH RENAL FUNCTION AND ELECTROLYTES CLOSELY - Date & Time Date: 10/08/18 Time: 14:00
[2018-10-08 21:18] LABS: CK-MB 1.49 ng/mL (0.0-3.38)
[2018-10-08] MEDS: Rosuvastatin Calcium 2.5 mg Tab PO SCH (21:38)
[2018-10-08] MEDS: Sodium Chloride 0.45% 1,000 ML IV SCH (21:58)
--- NOTE | 2018-10-08 23:55 | CARD ---
APPROVED REPORT Date of service: 10/07/2018 EKG Measurement Heart [id number] <Conclusion> Normal sinus rhythm Incomplete left bundle branch block ST & T wave abnormality, consider lateral ischemia Abnormal ECG
[2018-10-09] MEDS: Levothyroxine 100 MCG TAB PO SCH (06:21)
[2018-10-09] MEDS: (Novolog) Insulin Aspart, Recombinant 100 u/ml 10 ml vial SC SCH ×4 (07:28→22:02)
[2018-10-09 07:54] LABS: FREE T4 0.75 ng/dL (0.78-2.19)
[2018-10-09 07:56] LABS: ALB/GLOB RATIO 0.9 (1.0-2.1); ALBUMIN 3.4 g/dL (3.5-5.0)
[2018-10-09] MEDS: Omega-3-Acid Ethyl Esters 1 GM Cap PO SCH ×2 (09:19→18:56)
[2018-10-09] MEDS: Enoxaparin 60 mg Syringe SC SCH (09:20)
[2018-10-09] MEDS: Fluticasone-Vilanterol 100/25mcg Diskus INH SCH (10:47)
--- NOTE | 2018-10-09 12:53 | CT ---
Date of service: 10/08/2018 PROCEDURE: CT Chest without contrast HISTORY: R/O THYMOMA COMPARISON: 07/23/2018 TECHNIQUE: Contiguous axial images were obtained through the chest without intravenous contrast enhancement. Sagittal and coronal reconstructions were performed. Radiation dose: Total exam DLP = 317.54 mGy-cm. This CT exam was performed using one or more of the following dose reduction techniques: Automated exposure control, adjustment of the mA and/or kV according to patient size, and/or use of iterative reconstruction technique. FINDINGS: LUNGS: There is low lung volume on the right with shift of mediastinum to the right. The left lung is well inflated. There is multifocal subsegmental atelectasis in the right lung. There is biapical pleural parenchymal scarring and calcifications. There are no endobronchial lesions. MEDIASTINUM: Mild cardiomegaly and trace pericardial effusion. No aortic aneurysm. Main pulmonary artery unremarkable. No vascular congestion. No lymphadenopathy. There are aortic atherosclerotic calcifications. No evidence of mediastinal or thymic mass PLEURA: Small right pleural effusion. No pneumothorax. BONES: No fracture. No destructive lesion. UPPER ABDOMEN: The gallbladder is surgically absent. OTHER FINDINGS: Incompletely imaged right ventriculoperitoneal shunt catheter IMPRESSION: Small right pleural effusion. Low lung volume on the right with shift of mediastinum to the right. No evidence for mediastinal mass. A preliminary report was provided by Tyba.
--- NOTE | 2018-10-09 13:10 | CP.PCM.PN ---
Subjective - Date & Time of Evaluation Date of Evaluation: 10/09/18 Time of Evaluation: 13:08 - Subjective Subjective: Afebrile, in no apparent distress. Objective - Vital Signs/Intake and Output Vital Signs (last 24 hours): Temp Pulse Resp BP Pulse Ox 98.3 F 80 18 118/76 100 10/09/18 07:00 10/09/18 07:00 10/09/18 07:00 10/09/18 07:00 10/09/18 07:00 - Medications Medications: Current Medications Albuterol Sulfate (Albuterol 0.083% Inhal Andria (2.5 Mg/3 Ml) Ud) 2.5 mg IH RQ6 PRN PRN Reason: sob Last Admin: 10/08/18 13:42 Dose: 2.5 mg Amlodipine Besylate (Norvasc) 5 mg PO DAILY [facility] Last Admin: 10/09/18 09:20 Dose: 5 mg Carvedilol (Coreg) 6.25 mg PO BID [facility] Last Admin: 10/09/18 09:19 Dose: 6.25 mg Enoxaparin Sodium (Lovenox) 60 mg SC DAILY [facility] Last Admin: 10/09/18 09:20 Dose: 60 mg Fluticasone/Vilanterol (Breo Ellipta 100-25 Mcg Inh) 1 puff INH RQD [facility] Last Admin: 10/09/18 10:47 Dose: 1 puff Cefepime HCl (Maxipime Iv 1 Gm Premix) 1 gm in 50 mls @ 100 mls/hr IVPB Q24H [facility]; Protocol Last Admin: 10/08/18 18:36 Dose: 100 mls/hr Sodium Chloride (Sodium Chloride 0.45%) 1,000 mls @ 50 mls/hr IV .Q20H [facility] Stop: 10/10/18 23:59 Last Admin: 10/08/18 21:58 Dose: 50 mls/hr Insulin Aspart (Novolog) 0 unit SC ACHS [facility]; Protocol Last Admin: 10/09/18 07:28 Dose: Not Given Levothyroxine Sodium (Synthroid) 100 mcg PO DAILY@0630 [facility] Last Admin: 10/09/18 06:21 Dose: 100 mcg Memantine (Namenda) 10 mg PO BID [facility] Last Admin: 10/09/18 09:20 Dose: 10 mg Olzhg-6-Ipwl Ethyl Esters (Lovaza) 1 gm PO BID [facility] Last Admin: 10/09/18 09:19 Dose: 1 gm Pregabalin (Lyrica) 100 mg PO DAILY [facility] Last Admin: 10/09/18 09:19 Dose: 100 mg Rivastigmine (Exelon 4.6 Mg/24 Hr Patch) 1 patch TD DAILY [facility] Last Admin: 10/08/18 11:00 Dose: 1 patch Rosuvastatin Calcium (Crestor) 2.5 mg PO DAILY [facility] Last Admin: 10/08/18 21:38 Dose: 2.5 mg - Labs Labs: 10/08/18 20:44 10/09/18 07:12 PT 30.0 SECONDS (9.7-12.2) H 10/07/18 14:05 INR 2.7 10/07/18 14:05 APTT 52 SECONDS (21-34) H 10/07/18 14:05 - Constitutional Appears: Well, Non-toxic, No Acute Distress - Head Exam Head Exam: ATRAUMATIC, NORMAL INSPECTION, NORMOCEPHALIC - Eye Exam Eye Exam: EOMI, Normal appearance, PERRL - Neck Exam Neck Exam: Full ROM, Normal Inspection - Respiratory Exam Respiratory Exam: Clear to Ausculation Bilateral, NORMAL BREATHING PATTERN - Cardiovascular Exam Cardiovascular Exam: REGULAR RHYTHM, +S1, +S2 - GI/Abdominal Exam GI & Abdominal Exam: Soft, Normal Bowel Sounds - Extremities Exam Extremities Exam: Full ROM, Normal Capillary Refill, Normal Inspection - Back Exam Back Exam: Full ROM, NORMAL INSPECTION - Neurological Exam Neurological Exam: Alert, Awake, CN II-XII Intact - Psychiatric Exam Psychiatric exam: Normal Affect, Normal Mood - Skin Skin Exam: Dry, Intact, Normal Color Assessment and Plan (1) UTI (urinary tract infection) Assessment & Plan: Continue same treatment. Status: Acute (2) Urinary retention Assessment & Plan: Urology on board. Status: Acute (3) Ptosis of eyelid, bilateral Status: Resolved (4) Diabetes Assessment & Plan: Continue same treatment. Status: Chronic (5) Hypertension Assessment & Plan: Continue same treatment. Status: Chronic (6) Deep venous thrombosis of lower extremity Assessment & Plan: Continue same treatment. Status: Acute (7) Renal insufficiency Assessment & Plan: Nephrology on board. Status: Resolved
[2018-10-09] MEDS: Sodium Chloride 0.45% 1,000 ML IV SCH ×2 (17:30→19:41)
[2018-10-09] MEDS: Cefepime IV 1 gm in Dextrose 1 GM/50 ML BAG IVPB SCH (19:02)
--- NOTE | 2018-10-09 19:33 | CP.PCM.PN ---
Subjective - Date & Time of Evaluation Date of Evaluation: 10/09/18 Time of Evaluation: 16:00 - Subjective Subjective: seen on renal f/u came in with pre renal azotemia 2/2 gastroenteritis renal function back to normal Electrolytes WNL Objective - Vital Signs/Intake and Output Vital Signs (last 24 hours): Temp Pulse Resp BP Pulse Ox 98.3 F 76 18 142/68 100 10/09/18 07:00 10/09/18 19:09 10/09/18 07:00 10/09/18 19:09 10/09/18 07:00 - Medications Medications: Current Medications Albuterol Sulfate (Albuterol 0.083% Inhal Andria (2.5 Mg/3 Ml) Ud) 2.5 mg IH RQ6 PRN PRN Reason: sob Last Admin: 10/08/18 13:42 Dose: 2.5 mg Amlodipine Besylate (Norvasc) 5 mg PO DAILY [facility] Last Admin: 10/09/18 09:20 Dose: 5 mg Carvedilol (Coreg) 6.25 mg PO BID [facility] Last Admin: 10/09/18 18:56 Dose: 6.25 mg Enoxaparin Sodium (Lovenox) 60 mg SC DAILY [facility] Last Admin: 10/09/18 09:20 Dose: 60 mg Fluticasone/Vilanterol (Breo Ellipta 100-25 Mcg Inh) 1 puff INH RQD [facility] Last Admin: 10/09/18 10:47 Dose: 1 puff Cefepime HCl (Maxipime Iv 1 Gm Premix) 1 gm in 50 mls @ 100 mls/hr IVPB Q24H [facility]; Protocol Last Admin: 10/09/18 19:02 Dose: 100 mls/hr Sodium Chloride (Sodium Chloride 0.45%) 1,000 mls @ 50 mls/hr IV .Q20H [facility] Stop: 10/10/18 23:59 Last Admin: 10/08/18 21:58 Dose: 50 mls/hr Insulin Aspart (Novolog) 0 unit SC ACHS [facility]; Protocol Last Admin: 10/09/18 17:30 Dose: Not Given Levothyroxine Sodium (Synthroid) 100 mcg PO DAILY@0630 [facility] Last Admin: 10/09/18 06:21 Dose: 100 mcg Memantine (Namenda) 10 mg PO BID [facility] Last Admin: 10/09/18 18:56 Dose: 10 mg Oevlw-9-Vhtg Ethyl Esters (Lovaza) 1 gm PO BID [facility] Last Admin: 10/09/18 18:56 Dose: 1 gm Pregabalin (Lyrica) 100 mg PO DAILY [facility] Last Admin: 10/09/18 09:19 Dose: 100 mg Rivastigmine (Exelon 4.6 Mg/24 Hr Patch) 1 patch TD DAILY [facility] Last Admin: 10/08/18 11:00 Dose: 1 patch Rosuvastatin Calcium (Crestor) 2.5 mg PO DAILY [facility] Last Admin: 10/08/18 21:38 Dose: 2.5 mg - Labs Labs: 10/08/18 20:44 10/09/18 07:12 PT 30.0 SECONDS (9.7-12.2) H 10/07/18 14:05 INR 2.7 10/07/18 14:05 APTT 52 SECONDS (21-34) H 10/07/18 14:05 Assessment and Plan - Assessment and Plan (Free Text) Plan: c C/O current care March d/c IVF
[2018-10-09] MEDS: Rosuvastatin Calcium 2.5 mg Tab PO SCH (22:02)
[2018-10-10 00:49] VITALS: RESP 20
[2018-10-10] MEDS: Levothyroxine 100 MCG TAB PO SCH (06:14)
[2018-10-10] MEDS: (Novolog) Insulin Aspart, Recombinant 100 u/ml 10 ml vial SC SCH ×4 (07:25→22:01)
[2018-10-10] MEDS: Omega-3-Acid Ethyl Esters 1 GM Cap PO SCH ×2 (10:03→18:54)
[2018-10-10] MEDS: Enoxaparin 60 mg Syringe SC SCH (10:19)
[2018-10-10] MEDS: Fluticasone-Vilanterol 100/25mcg Diskus INH SCH (12:16)
--- NOTE | 2018-10-10 13:47 | CP.PCM.PN ---
Subjective - Date & Time of Evaluation Date of Evaluation: 10/10/18 Time of Evaluation: 07:00 - Subjective Subjective: improving afeb nad Objective - Vital Signs/Intake and Output Vital Signs (last 24 hours): Temp Pulse Resp BP Pulse Ox 98.2 F 68 20 144/74 98 10/10/18 07:00 10/10/18 07:00 10/10/18 07:00 10/10/18 07:00 10/10/18 07:00 Intake and Output: 10/10/18 10/10/18 06:59 18:59 Intake Total 1190 480 Balance 1190 480 - Medications Medications: Current Medications Albuterol Sulfate (Albuterol 0.083% Inhal Andria (2.5 Mg/3 Ml) Ud) 2.5 mg IH RQ6 PRN PRN Reason: sob Last Admin: 10/08/18 13:42 Dose: 2.5 mg Amlodipine Besylate (Norvasc) 5 mg PO DAILY [facility] Last Admin: 10/10/18 10:03 Dose: 5 mg Carvedilol (Coreg) 6.25 mg PO BID [facility] Last Admin: 10/10/18 10:03 Dose: 6.25 mg Enoxaparin Sodium (Lovenox) 60 mg SC DAILY [facility] Last Admin: 10/10/18 10:19 Dose: 60 mg Fluticasone/Vilanterol (Breo Ellipta 100-25 Mcg Inh) 1 puff INH RQD [facility] Last Admin: 10/10/18 12:16 Dose: 1 puff Cefepime HCl (Maxipime Iv 1 Gm Premix) 1 gm in 50 mls @ 100 mls/hr IVPB Q24H [facility]; Protocol Last Admin: 10/09/18 19:02 Dose: 100 mls/hr Sodium Chloride (Sodium Chloride 0.45%) 1,000 mls @ 50 mls/hr IV .Q20H [facility] Stop: 10/10/18 23:59 Last Admin: 10/09/18 19:41 Dose: 50 mls/hr Insulin Aspart (Novolog) 0 unit SC ACHS [facility]; Protocol Last Admin: 10/10/18 12:00 Dose: Not Given Levothyroxine Sodium (Synthroid) 100 mcg PO DAILY@0630 [facility] Last Admin: 10/10/18 06:14 Dose: 100 mcg Memantine (Namenda) 10 mg PO BID [facility] Last Admin: 10/10/18 10:03 Dose: 10 mg Nayog-7-Ajuv Ethyl Esters (Lovaza) 1 gm PO BID [facility] Last Admin: 10/10/18 10:03 Dose: 1 gm Pregabalin (Lyrica) 100 mg PO DAILY [facility] Last Admin: 10/10/18 10:03 Dose: 100 mg Rivastigmine (Exelon 4.6 Mg/24 Hr Patch) 1 patch TD DAILY [facility] Last Admin: 10/10/18 10:04 Dose: 1 patch Rosuvastatin Calcium (Crestor) 2.5 mg PO HS [facility] - Labs Labs: 10/08/18 20:44 10/09/18 07:12 PT 30.0 SECONDS (9.7-12.2) H 10/07/18 14:05 INR 2.7 10/07/18 14:05 APTT 52 SECONDS (21-34) H 10/07/18 14:05 - Constitutional Appears: Non-toxic, Confused, Chronically Ill - Head Exam Head Exam: NORMOCEPHALIC - Eye Exam Eye Exam: absent: Scleral icterus - ENT Exam ENT Exam: absent: Mucous Membranes Dry - Neck Exam Neck Exam: absent: Lymphadenopathy - Respiratory Exam Respiratory Exam: Decreased Breath Sounds, Clear to Ausculation Bilateral - Cardiovascular Exam Cardiovascular Exam: REGULAR RHYTHM - GI/Abdominal Exam GI & Abdominal Exam: Distended, Soft - Rectal Exam Rectal Exam: Deferred - Exam Exam: NORMAL INSPECTION - Back Exam Back Exam: absent: CVA tenderness (L), CVA tenderness (R) - Neurological Exam Neurological Exam: Alert, Awake, Oriented x3 Assessment and Plan (1) Dehydration Status: Acute (2) Rectocele Status: Acute (3) Renal insufficiency Status: Resolved (4) UTI (urinary tract infection) Status: Acute (5) Urinary retention Status: Resolved (6) Altered mental status Status: Acute - Assessment and Plan (Free Text) Plan: IV rx renewed based on culture reports
--- NOTE | 2018-10-10 14:11 | CP.PCM.PN ---
Subjective - Date & Time of Evaluation Date of Evaluation: 10/10/18 Time of Evaluation: 14:06 - Subjective Subjective: Patient denies any headache, chest pain, shortness of breath, vomiting or abdominal pain. Objective - Vital Signs/Intake and Output Vital Signs (last 24 hours): Temp Pulse Resp BP Pulse Ox 98.2 F 68 20 144/74 98 10/10/18 07:00 10/10/18 07:00 10/10/18 07:00 10/10/18 07:00 10/10/18 07:00 Intake and Output: 10/10/18 10/10/18 06:59 18:59 Intake Total 1190 480 Balance 1190 480 - Medications Medications: Current Medications Albuterol Sulfate (Albuterol 0.083% Inhal Andria (2.5 Mg/3 Ml) Ud) 2.5 mg IH RQ6 PRN PRN Reason: sob Last Admin: 10/08/18 13:42 Dose: 2.5 mg Amlodipine Besylate (Norvasc) 5 mg PO DAILY [facility] Last Admin: 10/10/18 10:03 Dose: 5 mg Carvedilol (Coreg) 6.25 mg PO BID [facility] Last Admin: 10/10/18 10:03 Dose: 6.25 mg Enoxaparin Sodium (Lovenox) 60 mg SC DAILY [facility] Last Admin: 10/10/18 10:19 Dose: 60 mg Fluticasone/Vilanterol (Breo Ellipta 100-25 Mcg Inh) 1 puff INH RQD [facility] Last Admin: 10/10/18 12:16 Dose: 1 puff Cefepime HCl (Maxipime Iv 1 Gm Premix) 1 gm in 50 mls @ 100 mls/hr IVPB Q24H [facility]; Protocol Last Admin: 10/09/18 19:02 Dose: 100 mls/hr Sodium Chloride (Sodium Chloride 0.45%) 1,000 mls @ 50 mls/hr IV .Q20H [facility] Stop: 10/10/18 23:59 Last Admin: 10/09/18 19:41 Dose: 50 mls/hr Insulin Aspart (Novolog) 0 unit SC ACHS [facility]; Protocol Last Admin: 10/10/18 12:00 Dose: Not Given Levothyroxine Sodium (Synthroid) 100 mcg PO DAILY@0630 [facility] Last Admin: 10/10/18 06:14 Dose: 100 mcg Memantine (Namenda) 10 mg PO BID [facility] Last Admin: 10/10/18 10:03 Dose: 10 mg Pdabs-2-Xkic Ethyl Esters (Lovaza) 1 gm PO BID [facility] Last Admin: 10/10/18 10:03 Dose: 1 gm Pregabalin (Lyrica) 100 mg PO DAILY [facility] Last Admin: 10/10/18 10:03 Dose: 100 mg Rivastigmine (Exelon 4.6 Mg/24 Hr Patch) 1 patch TD DAILY [facility] Last Admin: 10/10/18 10:04 Dose: 1 patch Rosuvastatin Calcium (Crestor) 2.5 mg PO HS [facility] - Labs Labs: 10/08/18 20:44 10/09/18 07:12 PT 30.0 SECONDS (9.7-12.2) H 10/07/18 14:05 INR 2.7 10/07/18 14:05 APTT 52 SECONDS (21-34) H 10/07/18 14:05 - Constitutional Appears: Well, Non-toxic, No Acute Distress - Head Exam Head Exam: ATRAUMATIC, NORMAL INSPECTION, NORMOCEPHALIC - Eye Exam Eye Exam: EOMI Pupil Exam: PERRL - Neck Exam Neck Exam: Full ROM, Normal Inspection - Respiratory Exam Respiratory Exam: Clear to Ausculation Bilateral, NORMAL BREATHING PATTERN - Cardiovascular Exam Cardiovascular Exam: REGULAR RHYTHM, +S1, +S2 - GI/Abdominal Exam GI & Abdominal Exam: Soft, Normal Bowel Sounds - Extremities Exam Extremities Exam: Full ROM, Normal Inspection Assessment and Plan (1) UTI (urinary tract infection) Assessment & Plan: CBC Diff. Continue Cefepime. Status: Acute (2) Diabetes Assessment & Plan: Continue same treatment. Status: Chronic (3) Hypertension Assessment & Plan: Continue same treatment. Status: Chronic (4) Renal insufficiency Assessment & Plan: BMP. Nephrology on board. Status: Resolved (5) Dehydration Assessment & Plan: Continue IV Fluids. Status: Acute (6) Deep venous thrombosis of lower extremity Assessment & Plan: Continue same treatment. Status: Acute (7) Urinary retention Status: Resolved (8) Ptosis of eyelid, bilateral Status: Resolved
[2018-10-10 17:32] LABS: BASO # 0.1 K/uL (0.0-0.2); BASO % 1.1 % (0.0-2.0); EOS # 0.6 K/uL (0.0-0.7); EOS % 10.3 % (0.0-4.0); HEMOGLOBIN 12.1 g/dL (11.0-16.0); LYMPH # 2.7 K/uL (1.0-4.3); LYMPH % 43.9 % (20.0-40.0); MEAN CELL VOLUME 98.6 fL (81.0-99.0); MEAN CORPUSCULAR HGB CONC 33.5 g/dL (33.0-37.0); MEAN PLATELET VOLUME 9.5 fL (7.2-11.7); MONO # 0.8 K/uL (0.0-0.8); MONO % 12.7 % (0.0-10.0); RBC 3.67 Mil/uL (3.80-5.20); RED CELL DISTRIBUTION WIDTH 15.5 % (11.5-14.5); WHITE BLOOD COUNT 6.2 K/uL (4.8-10.8)
[2018-10-10 17:50] LABS: BLOOD UREA NITROGEN 10 mg/dL (7-17); CALCIUM 9.5 mg/dl (8.6-10.4); GFR NON-AFRICAN AMERICAN > 60
[2018-10-10] MEDS: Sodium Chloride 0.45% 1,000 ML IV SCH (18:57)
[2018-10-10] MEDS: Cefepime IV 1 gm in Dextrose 1 GM/50 ML BAG IVPB SCH (19:11)
[2018-10-10] MEDS ORDERED: Potassium Chloride 20 mEq ER Tab PO ONE (19:56)
--- NOTE | 2018-10-10 20:13 | CP.PCM.PN ---
Subjective - Date & Time of Evaluation Date of Evaluation: 10/10/18 Time of Evaluation: 16:00 - Subjective Subjective: FEELS MUCH BETTER RENAL FUNCTION BACK TO NORMAL BICarbonate getting better as diahria stopped c/o current care on ivab for uti chronic indwelling foly Objective - Vital Signs/Intake and Output Vital Signs (last 24 hours): Temp Pulse Resp BP Pulse Ox 98.2 F 72 20 122/77 96 10/10/18 15:00 10/10/18 15:00 10/10/18 15:00 10/10/18 18:53 10/10/18 15:00 Intake and Output: 10/10/18 10/11/18 18:59 06:59 Intake Total 480 Balance 480 - Medications Medications: Current Medications Albuterol Sulfate (Albuterol 0.083% Inhal Andria (2.5 Mg/3 Ml) Ud) 2.5 mg IH RQ6 PRN PRN Reason: sob Last Admin: 10/08/18 13:42 Dose: 2.5 mg Amlodipine Besylate (Norvasc) 5 mg PO DAILY [facility] Last Admin: 10/10/18 10:03 Dose: 5 mg Carvedilol (Coreg) 6.25 mg PO BID [facility] Last Admin: 10/10/18 18:54 Dose: 6.25 mg Enoxaparin Sodium (Lovenox) 60 mg SC DAILY [facility] Last Admin: 10/10/18 10:19 Dose: 60 mg Fluticasone/Vilanterol (Breo Ellipta 100-25 Mcg Inh) 1 puff INH RQD [facility] Last Admin: 10/10/18 12:16 Dose: 1 puff Cefepime HCl (Maxipime Iv 1 Gm Premix) 1 gm in 50 mls @ 100 mls/hr IVPB Q24H [facility]; Protocol Last Admin: 10/10/18 19:11 Dose: 100 mls/hr Sodium Chloride (Sodium Chloride 0.45%) 1,000 mls @ 50 mls/hr IV .Q20H [facility] Stop: 10/10/18 23:59 Last Admin: 10/10/18 18:57 Dose: 50 mls/hr Insulin Aspart (Novolog) 0 unit SC ACHS [facility]; Protocol Last Admin: 10/10/18 17:30 Dose: Not Given Levothyroxine Sodium (Synthroid) 100 mcg PO DAILY@0630 [facility] Last Admin: 10/10/18 06:14 Dose: 100 mcg Memantine (Namenda) 10 mg PO BID [facility] Last Admin: 10/10/18 18:54 Dose: 10 mg Frjeq-2-Tkye Ethyl Esters (Lovaza) 1 gm PO BID [facility] Last Admin: 10/10/18 18:54 Dose: 1 gm Potassium Chloride (K-Dur 20 Meq Er Tab) 20 meq PO ONCE ONE Stop: 10/10/18 19:57 Pregabalin (Lyrica) 100 mg PO DAILY [facility] Last Admin: 10/10/18 10:03 Dose: 100 mg Rivastigmine (Exelon 4.6 Mg/24 Hr Patch) 1 patch TD DAILY [facility] Last Admin: 10/10/18 10:04 Dose: 1 patch Rosuvastatin Calcium (Crestor) 2.5 mg PO HS [facility] - Labs Labs: 10/10/18 17:13 10/10/18 17:13 PT 30.0 SECONDS (9.7-12.2) H 10/07/18 14:05 INR 2.7 10/07/18 14:05 APTT 52 SECONDS (21-34) H 10/07/18 14:05
[2018-10-10] MEDS ORDERED: Rosuvastatin Calcium 2.5 mg Tab PO SCH (22:00)
[2018-10-11 01:53] VITALS: O2SAT 97
[2018-10-11] MEDS: Levothyroxine 100 MCG TAB PO SCH (05:38)
--- NOTE | 2018-10-11 07:19 | CP.PCM.CON ---
History of Present Illness - History of Present Illness History of Present Illness: CONSULTATION DICTATED NO NEW NEUROLOGICAL DYSFUNCTION VASCULAR/SENILE DEMENTIA AND PAINFUL DIABETIC NEUROPATHY - STABLE NO HX AND EXAM SUGGESTIVE OF NMJ DISEASE /? 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 ears - RENAL Hx Chronic Kidney Disease: No - ENDOCRINE/METABOLIC Hx Hypothyroidism: Yes - HEMATOLOGICAL/ONCOLOGICAL Hx Blood Disorders: No Other/Comment: L leg DVT - INTEGUMENTARY Hx Dermatological Problems: No - MUSCULOSKELETAL/RHEUMATOLOGICAL Hx Falls: No - GASTROINTESTINAL Hx Gall Bladder Disease: Yes Hx Gastritis: Yes - GENITOURINARY/GYNECOLOGICAL Hx Genitourinary Disorders: No - PSYCHIATRIC Hx Substance Use: No - SURGICAL HISTORY Hx Cholecystectomy: Yes - ANESTHESIA Hx Anesthesia: Yes Hx Anesthesia Reactions: No Hx Malignant Hyperthermia: No Meds Allergies/Adverse Reactions: Allergies Allergy/AdvReac Type Severity Reaction Status Date / Time moxifloxacin HCl Allergy RASH Verified 10/07/18 15:19 [From Avelox] - Medications Medications: Current Medications Albuterol Sulfate (Albuterol 0.083% Inhal Andria (2.5 Mg/3 Ml) Ud) 2.5 mg RQ6 PRN PRN Reason: sob Last Admin: 10/08/18 13:42 Dose: 2.5 mg Amlodipine Besylate (Norvasc) 5 mg PO DAILY [facility] Last Admin: 10/10/18 10:03 Dose: 5 mg Carvedilol (Coreg) 6.25 mg PO BID [facility] Last Admin: 10/10/18 18:54 Dose: 6.25 mg Enoxaparin Sodium (Lovenox) 60 mg SC DAILY [facility] Last Admin: 10/10/18 10:19 Dose: 60 mg Fluticasone/Vilanterol (Breo Ellipta 100-25 Mcg Inh) 1 puff INH RQD [facility] Last Admin: 10/10/18 12:16 Dose: 1 puff Cefepime HCl (Maxipime Iv 1 Gm Premix) 1 gm in 50 mls @ 100 mls/hr IVPB Q24H [facility]; Protocol Last Admin: 10/10/18 19:11 Dose: 100 mls/hr Insulin Aspart (Novolog) 0 unit SC ACHS [facility]; Protocol Last Admin: 10/10/18 22:01 Dose: Not Given Levothyroxine Sodium (Synthroid) 100 mcg PO DAILY@0630 [facility] Last Admin: 10/11/18 05:38 Dose: 100 mcg Memantine (Namenda) 10 mg PO BID [facility] Last Admin: 10/10/18 18:54 Dose: 10 mg Mseuc-6-Xjzg Ethyl Esters (Lovaza) 1 gm PO BID [facility] Last Admin: 10/10/18 18:54 Dose: 1 gm Pregabalin (Lyrica) 100 mg PO DAILY [facility] Last Admin: 10/10/18 10:03 Dose: 100 mg Rivastigmine (Exelon 4.6 Mg/24 Hr Patch) 1 patch TD DAILY [facility] Last Admin: 10/10/18 10:04 Dose: 1 patch Rosuvastatin Calcium (Crestor) 2.5 mg PO HS [facility] Last Admin: 10/10/18 21:55 Dose: 2.5 mg Results - Vital Signs Recent Vital Signs: Last Vital Signs Temp 98.3 F 10/10/18 23:30 Pulse 70 10/10/18 23:50 Resp 20 10/10/18 23:30 BP 117/64 10/10/18 23:30 Pulse Ox 97 10/10/18 23:30 - Labs Result Diagrams: 10/10/18 17:13 10/10/18 17:13 Labs: Laboratory Results - last 24 hr 10/09/18 10/09/18 10/10/18 07:12 21:43 06:31 WBC RBC Hgb Hct MCV MCH MCHC RDW Plt Count MPV Neut % (Auto) Lymph % (Auto) [place] % (Auto) Eos % (Auto) Baso % (Auto) Neut # (Auto) Lymph # (Auto) [place] # (Auto) Eos # (Auto) Baso # (Auto) Sodium Potassium Chloride Carbon Dioxide Anion Gap BUN Creatinine Est GFR ( Amer) Est GFR (Non-Af Amer) POC Glucose (mg/dL) 97 99 Random Glucose Hemoglobin A1c 5.7 Calcium 10/10/18 10/10/18 10/10/18 11:16 17:13 17:13 WBC 6.2 RBC 3.67 L Hgb 12.1 Hct 36.2 MCV 98.6 MCH 33.0 H MCHC 33.5 RDW 15.5 H Plt Count 211 MPV 9.5 Neut % (Auto) 32.0 L Lymph % (Auto) 43.9 H [place] % (Auto) 12.7 H Eos % (Auto) 10.3 H Baso % (Auto) 1.1 Neut # (Auto) 2.0 Lymph # (Auto) 2.7 [place] # (Auto) 0.8 Eos # (Auto) 0.6 Baso # (Auto) 0.1 Sodium 141 Potassium 3.4 L Chloride 114 H Carbon Dioxide 18 L Anion Gap 13 BUN 10 Creatinine 0.8 Est GFR ( Amer) > 60 Est GFR (Non-Af Amer) > 60 POC Glucose (mg/dL) 120 H Random Glucose 101 Hemoglobin A1c Calcium 9.5 10/10/18 10/10/18 10/11/18 17:19 21:52 06:33 WBC RBC Hgb Hct MCV MCH MCHC RDW Plt Count MPV Neut % (Auto) Lymph % (Auto) [place] % (Auto) Eos % (Auto) Baso % (Auto) Neut # (Auto) Lymph # (Auto) [place] # (Auto) Eos # (Auto) Baso # (Auto) Sodium Potassium Chloride Carbon Dioxide Anion Gap BUN Creatinine Est GFR ( Amer) Est GFR (Non-Af Amer) POC Glucose (mg/dL) 91 164 H 128 H Random Glucose Hemoglobin A1c Calcium
[2018-10-11] MEDS: (Novolog) Insulin Aspart, Recombinant 100 u/ml 10 ml vial SC SCH ×2 (07:30→11:33)
[2018-10-11 08:31] VITALS: BP 138/83; PULSE 69; TEMP 97.3
[2018-10-11 08:42] LABS: BLOOD UREA NITROGEN 8 mg/dL (7-17); CALCIUM 9.6 mg/dl (8.6-10.4); GFR NON-AFRICAN AMERICAN > 60
--- NOTE | 2018-10-11 08:42 | CON ---
DATE: 10/11/2018 NEUROLOGICAL PROBLEM: Weakness. The patient was admitted with history of urinary discomfort with the problem of Ferro catheter insertion and removal. From neurological point of view, I was called into evaluate her weakness. HISTORY OF PRESENT ILLNESS: Ms. 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 She was seen by me week few days ago at my office following a visit at [facility] as well as medical [place]. The current admission is not related to her neurological problem. The patient is stable. Denies any new complaints. Mentation is unchanged compared with my previous examination. PAST MEDICAL HISTORY: Dementia, diabetic neuropathy, diabetes, gastritis, gallbladder disease, dyslipidemia, hypothyroidism. PAST SURGICAL HISTORY: Cholecystectomy. PERSONAL HISTORY: Denies smoking or alcohol use. ALLERGIES: NO KNOWN ALLERGIES. REVIEW OF SYSTEMS: A 12-point system being reviewed. From neuro, weakness. PHYSICAL EXAMINATION: VITAL SIGNS: Blood pressure 117/64, mean arterial pressure of 81, respiratory rate 18, temperature afebrile. NECK: Supple. No carotid bruits. HEART: Sounds regular. CHEST: Fair air entry EXTREMITIES: No edema in legs. NEUROLOGIC EXAMINATION: Mental status examination: The patient is examined in the presence of her homemaker. She could able to recognize me well by looking at me. At this early, she is sitting and watching TV. She is ambulatory. No new weakness. No her weakness problem. No visual dysfunction. Cranial nerve examination: Visual field intact. Pupils are reactive to light. Extraocular movement normal. No nystagmus. No facial sensory deficit. No facial asymmetry. Hearing is normal. Tongue is midline. Good gag. Motor examination: Outstretched hand with eyes closed, no drift noted. Power is symmetric on either side. Deep tendon reflexes biceps, brachialis, triceps trace; both knees are absent. Both ankles are absent. Plantars are downgoing. 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 No cortical sensory loss. Coordination: Izphgb-wsmq-cogabq test is intact. The patient is ambulatory without any support. DIAGNOSTIC WORKUP: CT of the head does not show any thymoma or any mediastinal mass. BLOOD WORKUP: WBC 6.2, hemoglobin 12.1, hematocrit 36.2, platelet 211. Sodium 141, potassium 3.4, chloride 114, bicarbonate 18, BUN 10, creatinine 0.8. GFR more than 60. Glucose 124. 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 The patient's current examination and the history is not suggestive of neuromuscular junctional disease. RECOMMENDATIONS: Patient is neurologically stable. No further workup is needed from neurological point of view. The patient is advised to follow up with me as outpatient for her neurological existing problem. If medically stable, the patient can be discharged and should have followup visit with me as outpatient. Anthony Castro MD
[2018-10-11] MEDS: Omega-3-Acid Ethyl Esters 1 GM Cap PO SCH (09:17)
[2018-10-11] MEDS: Enoxaparin 60 mg Syringe SC SCH (09:19)
[2018-10-11] MEDS: Fluticasone-Vilanterol 100/25mcg Diskus INH SCH (09:32)
[2018-10-11 15:33] LABS: ANA PATTERN CENTROMERE
[2018-10-11] MEDS ORDERED: Albuterol HFA 90 mcg/actuation (8 g) INH PRN (16:30)
--- NOTE | 2018-10-11 16:41 | CP.PCM.DIS ---
Provider - Provider Date of Admission: 10/07/18 16:54 Attending physician: Harshal Salazar MD Consults: 10/07/18 19:07 Urology Consult Routine Comment: Consulting Provider: Timo Wang Consulting Physician: Timo Wang Reason for Consult: w/ indwelling catheter 10/07/18 19:11 Infectious Disease Consult Routine Comment: Consulting Provider: Antony Cabral Consulting Physician: Antony Cabral Reason for Consult: uti 10/07/18 19:50 Case Management Referral Routine Comment: Physician Instructions: Reason For Exam: requesting advance directive info Reason for Referral: [employer] Eval Nursing Referral for Palliative Care Routine Comment: Physician Instructions: Reason For Exam: family request Nursing Referral for Wound Care Routine Comment: Physician Instructions: Reason For Exam: rectal reddness and bleeding 10/07/18 21:31 Nephrology Consult Routine Comment: Consulting Provider: James Meyers Consulting Physician: James Meyers Reason for Consult: RENAL INSUFFICIENCY 10/08/18 10:12 Neurology Consult Routine Comment: Consulting Provider: Anthony Castro Consulting Physician: Anthony Castro Reason for Consult: R/O Myasthenia Gravis Time Spent in preparation of Discharge (in minutes): 30 Diagnosis - Discharge Diagnosis (1) UTI (urinary tract infection) Status: Acute (2) Diabetes Status: Chronic (3) Hypertension Status: Chronic (4) Renal insufficiency Status: Resolved (5) Dehydration Status: Acute (6) Deep venous thrombosis of lower extremity Status: Acute Priority: High (7) Urinary retention Status: Resolved (8) Ptosis of eyelid, bilateral Status: Resolved Hospital Course - Lab Results Lab Results: Micro Results 10/07/18 15:30 Blood-Venous Blood Culture - Preliminary NO GROWTH AFTER 3 DAYS 10/07/18 16:00 Blood-Venous Blood Culture - Preliminary NO GROWTH AFTER 3 DAYS 10/07/18 14:39 Urine Urine Culture - Final Escherichia Coli Most Recent Lab Values WBC 6.2 K/uL (4.8-10.8) 10/10/18 17:13 RBC 3.67 Mil/uL (3.80-5.20) L 10/10/18 17:13 Hgb 12.1 g/dL (11.0-16.0) 10/10/18 17:13 Hct 36.2 % (34.0-47.0) 10/10/18 17:13 MCV 98.6 fL (81.0-99.0) 10/10/18 17:13 MCH 33.0 pg (27.0-31.0) H 10/10/18 17:13 MCHC 33.5 g/dL (33.0-37.0) 10/10/18 17:13 RDW 15.5 % (11.5-14.5) H 10/10/18 17:13 Plt Count 211 K/uL (130-400) 10/10/18 17:13 MPV 9.5 fL (7.2-11.7) 10/10/18 17:13 Neut % (Auto) 32.0 % (50.0-75.0) L 10/10/18 17:13 Lymph % (Auto) 43.9 % (20.0-40.0) H 10/10/18 17:13 [place] % (Auto) 12.7 % (0.0-10.0) H 10/10/18 17:13 Eos % (Auto) 10.3 % (0.0-4.0) H 10/10/18 17:13 Baso % (Auto) 1.1 % (0.0-2.0) 10/10/18 17:13 Neut # (Auto) 2.0 K/uL (1.8-7.0) 10/10/18 17:13 Lymph # (Auto) 2.7 K/uL (1.0-4.3) 10/10/18 17:13 [place] # (Auto) 0.8 K/uL (0.0-0.8) 10/10/18 17:13 Eos # (Auto) 0.6 K/uL (0.0-0.7) 10/10/18 17:13 Baso # (Auto) 0.1 K/uL (0.0-0.2) 10/10/18 17:13 ESR 40 mm/hr (0-20) H 10/09/18 07:12 PT 30.0 SECONDS (9.7-12.2) H 10/07/18 14:05 INR 2.7 10/07/18 14:05 APTT 52 SECONDS (21-34) H 10/07/18 14:05 Sodium 143 mmol/L (132-148) 10/11/18 08:05 Potassium 3.8 mmol/L (3.6-5.2) 10/11/18 08:05 Chloride 111 mmol/L (98-107) H 10/11/18 08:05 Carbon Dioxide 21 mmol/L (22-30) L 10/11/18 08:05 Anion Gap 15 (10-20) 10/11/18 08:05 BUN 8 mg/dL (7-17) 10/11/18 08:05 Creatinine 0.8 mg/dL (0.7-1.2) 10/11/18 08:05 Est GFR ( Amer) > 60 10/11/18 08:05 Est GFR (Non-Af Amer) > 60 10/11/18 08:05 POC Glucose (mg/dL) 140 mg/dL (65-110) H 10/11/18 11:27 Random Glucose 121 mg/dL (65-105) H 10/11/18 08:05 Hemoglobin A1c 5.7 % (4.2-6.5) 10/09/18 07:12 Calcium 9.6 mg/dl (8.6-10.4) 10/11/18 08:05 Total Bilirubin 0.8 mg/dL (0.2-1.3) 10/09/18 07:12 AST 11 U/L (14-36) L D 10/09/18 07:12 ALT 16 U/L (9-52) 10/09/18 07:12 Alkaline Phosphatase 56 U/L (38-126) 10/09/18 07:12 Total Creatine Kinase 24 U/L (30-135) L 10/08/18 20:44 CK-MB (Mass) 1.49 ng/mL (0.0-3.38) 10/08/18 20:44 Troponin I < 0.0120 ng/mL (0.00-0.120) 10/08/18 20:44 C-Reactive Protein 30.70 mg/L (0.0-9.9) H 10/09/18 07:12 Total Protein 6.9 g/dL (6.3-8.3) 10/09/18 07:12 Albumin 3.4 g/dL (3.5-5.0) L D 10/09/18 07:12 Globulin 3.6 gm/dL (2.2-3.9) 10/09/18 07:12 Albumin/Globulin Ratio 0.9 (1.0-2.1) L 10/09/18 07:12 Lipase 180 U/L (23-300) 10/07/18 14:05 Free T4 0.75 ng/dL (0.78-2.19) L 10/09/18 07:12 TSH 3rd Generation 3.61 mIU/L (0.46-4.68) 10/09/18 07:12 Urine Color Natali (YELLOW) 10/07/18 14:39 Urine Clarity Hazy (Clear) 10/07/18 14:39 Urine pH 5.0 (5.0-8.0) 10/07/18 14:39 Ur Specific [place] 1.019 (1.003-1.030) 10/07/18 14:39 Urine Protein 2+ mg/dL (NEGATIVE) H 10/07/18 14:39 Urine Glucose (UA) Normal mg/dL (Normal) 10/07/18 14:39 Urine Ketones Negative mg/dL (NEGATIVE) 10/07/18 14:39 Urine Blood 1+ (NEGATIVE) H 10/07/18 14:39 Urine Nitrate Negative (NEGATIVE) 10/07/18 14:39 Urine Bilirubin Negative (NEGATIVE) 10/07/18 14:39 Urine Urobilinogen Normal mg/dL (0.2-1.0) 10/07/18 14:39 Ur Leukocyte Esterase 3+ Yadira/uL (Negative) H 10/07/18 14:39 Urine WBC (Auto) 396 /hpf (0-5) H 10/07/18 14:39 Urine RBC (Auto) 15 /hpf (0-3) H 10/07/18 14:39 Ur Squamous Epith Cells 1 /hpf (0-5) 10/07/18 14:39 Urine Bacteria Few (<OCC) H 10/07/18 14:39 Hyaline Casts >20 /lpf (0-2) H 10/07/18 14:39 DONI 6 Profile Positive (NEGATIVE) H 10/09/18 07:12 DONI Titer 1:80 H 10/09/18 07:12 DONI Pattern Centromere H 10/09/18 07:12 Influenza Typ A,B (EIA) Negative for flu a/b (NEGATIVE) 10/07/18 14:39 - Hospital Course Hospital Course: 73 years old female who presents to the ER complaining of nausea and vomiting. Patient with Ferro Catheter in place for 2 months, unable to pass urine. Intial Laboratoy evaluation significant for Renal Insufficiency and UTI. Patient admitted for further evaluation and treatment. Initial management includes Cefepime IV. Urology consult obtained. Patient underwent Ferro Catheter removal. Nephrology consult ordered. Patient's Renal function improved. ID consult requested. Due to muscle weakness, a Neurology evaluation was requested, as well. Patient's medical condition improved and she was discharged home. - Date & Time of H&P Date of H&P: 10/08/18 Time of H&P: 16:41 Discharge Exam - Head Exam Head Exam: ATRAUMATIC, NORMAL INSPECTION, NORMOCEPHALIC - Neck Exam Neck exam: Full Rom, Normal Inspection - Respiratory Exam Respiratory Exam: NORMAL BREATHING PATTERN, UNREMARKABLE - Cardiovascular Exam Cardiovascular Exam: REGULAR RHYTHM, +S1, +S2 - GI/Abdominal Exam GI & Abdominal Exam: Normal Bowel Sounds, Unremarkable - Back Exam Back exam: NORMAL INSPECTION Discharge Plan - Follow Up Plan Condition: GUARDED Disposition: HOME/ ROUTINE Instructions: Heart Healthy Diet, Heart Failure, Adult (DC), Dehydration, Adult (DC), Urinary Retention (DC), Urinary Tract Infection in Women (DC), Urinary Tract Infection in Men (DC), Renal Failure Diet (DC), Acute Headache (DC), Dysuria (GEN), Weakness (GEN), Altered Mental Status (GEN) Additional Instructions: Please call Dr. Wang to schedule follow up appointment in 2 weeks Follow up in 2 weeks in the office. Referrals: Timo Wang MD [Staff Provider] - Harshal Salazar MD [Staff Provider] -
[2018-10-11] MEDS ORDERED: PREGABALIN 200 MG PO SCH (22:00)
[2018-10-11] MEDS ORDERED: TAMSULOSIN 0.4 MG PO SCH (22:00)
[2018-10-12] MEDS ORDERED: PROTEASE PO SCH (10:00)
[2018-10-12] MEDS ORDERED: LIPASE PO SCH (10:00)
[2018-10-12] MEDS ORDERED: PETROLATUM WHITE TP SCH (10:00)
[2018-10-12] MEDS ORDERED: Multiple Vitamins Tab PO SCH (10:00)
[2018-10-12] MEDS ORDERED: MINERAL OIL TP SCH (10:00)
[2018-10-12] MEDS ORDERED: AMYLASE PO SCH (10:00)
[2018-10-12] MEDS ORDERED: JANUVIA 50 MG PO SCH (10:00)
[2018-10-12 17:25] LABS: ALDOLASE 2.8 U/L (<=8.1)
--- NOTE | 2018-10-12 19:13 | CARD ---
APPROVED REPORT Date of service: 10/08/2018 EKG Measurement Heart [id number] <Conclusion> Normal sinus rhythm.lbbb ST & T wave abnormality, consider lateral ischemia Abnormal ECG
== END 2018-10-11 14:23 | disposition home or self-care (01) | DRG 690 ==
LOC: C.ER 12:42 → C.9E 16:54 → C.6T 17:22
PROVIDERS: ADMIT Internal Medicine; ATTEND Internal Medicine
DX: N39.0 Urinary tract infection, site not specified (principal); E87.2 Acidosis; N18.4 Chronic kidney disease, stage 4 (severe); N17.9 Acute kidney failure, unspecified; I82.409 Acute embolism and thrombosis of unspecified deep veins of unspecified lower extremity; E78.5 Hyperlipidemia, unspecified; E86.0 Dehydration; H54.62 Unqualified visual loss, left eye, normal vision right eye; I12.9 Hypertensive chronic kidney disease with stage 1 through stage 4 chronic kidney disease, or unspecified chronic kidney disease; K52.9 Noninfective gastroenteritis and colitis, unspecified; J44.9 Chronic obstructive pulmonary disease, unspecified; N81.6 Rectocele; Z86.718 Personal history of other venous thrombosis and embolism; E11.40 Type 2 diabetes mellitus with diabetic neuropathy, unspecified; E03.9 Hypothyroidism, unspecified; E11.22 Type 2 diabetes mellitus with diabetic chronic kidney disease; F03.90 Unspecified dementia, unspecified severity, without behavioral disturbance, psychotic disturbance, mood disturbance, and anxiety; Z98.2 Presence of cerebrospinal fluid drainage device

== ENCOUNTER 2019-02-09 12:09 | Outpatient (CLI) | payer MEDICARE, MEDICAID | END 2019-02-09 12:10 | disposition home or self-care (01) | LOC: C.RADIC 12:09 ==

== ENCOUNTER 2019-03-10 08:24 | Outpatient (CLI) | payer MEDICARE, MEDICAID | END 2019-03-10 08:25 | disposition home or self-care (01) | LOC: C.CTH 08:24 | DX: R51 Headache (principal) ==